=== PATIENT | female | born 1965 | race Caucasian/White ===

== ENCOUNTER 2016-10-15 08:44 | Day surgery (SDC) | payer MEDICAID, MEDICARE ==
[2016-10-14 11:20] VITALS: BMI 31.7
[~2016-10-15 08:44] MED LIST: LACTATED RINGERS 1,000 ML IV SCH
[2016-10-15 09:22] VITALS: TEMP 97.3
[2016-10-15] MEDS ORDERED: MIDAZOLAM 2 MG/2 ML VIAL ONE (09:53)
[2016-10-15] MEDS ORDERED: fentaNYL (PF) 50 MCG/ML 2 ML AMP ONE (09:53)
[2016-10-15] MEDS ORDERED: BUPIVACAINE (PF) 0.5% 30 ML VIAL ONE (09:53)
[2016-10-15] MEDS ORDERED: TRIAMCINOLONE ACETONIDE 40 MG/ML 1 ML VIAL ONE (09:53)
--- NOTE | 2016-10-15 10:12 | P.PCN ---
Date of Procedure: 10/15/16 Procedure(s) Performed: Preoperative diagnoses= 1-bilateral sacroiliitis. 2-bilateral sacroiliac joint dysfunction. 3- Failed back surgeries and lumbar area 4- lumbar spondylosis with lumbar facet arthropathy Post operative diagnoses= same as preoperative diagnosis. Procedure= bilateral sacroiliac joint steroid injection under fluoroscopic guidance. Anesthesia= conscious sedation with Versed 2 mg and fentanyl 100 micrograms and local infiltration with lidocaine 1% 4 ml Estimated blood loss=minimal. Procedure indication= the patient had a history of severe chronic low back pain , diagnosed with sacroiliitis and lumbar sacral facet arthropathy unresponsive to conservative treatment. Procedure description= the patient was seen and identified in the preoperative holding area, risks and benefits and alternative of the procedure and possible complications discussed with the patient, and he agreed with the preceding, patient signed the consent, an IV was started, and vital signs were monitored and were stable throughout the procedure, patient was placed in the prone position or table and the lumbosacral area was prepped and draped with a sterile fashion, vital signs were closely monitored during the procedure, the fluoroscopy camera was placed in the contralateral oblique view on the right sacroiliac joint and the lower part of the joint was identified, local infiltration of the skin and subcutaneous tissue with lidocaine 1% 2 mL then a 22-gauge Quincke-type spinal needle advanced slowly under fluoroscopy and placed in the posterior and inferior border of the right sacroiliac joint, placement confirmed with AP and lateral view, and after appropriate needle placement confirmed and after negative aspiration for heme and CSF and there was no paresthesia during the injection, 3 ml of Marcaine 0.5% and 40 mg of Kenalog injected after negative aspiration, the needle removed, and the entire same procedure was repeated for the left sacroiliac joint Patient tolerated the procedure well without any complication, The patient returned to supine position after the back was cleaned and a Band- Aid applied, the patient transported to recovery room in stable condition and he was monitored for 30 minutes before he was discharged home and then patient was reexamined before going home and patient was discharged in stable condition and patient will follow up with the pain clinic in a few weeks
[2016-10-15 10:25] VITALS: RESP 16
[2016-10-15] MEDS ORDERED: IV FLUID CONTINUATION 1,000 ML IV ONE (10:25)
[2016-10-15 10:56] VITALS: BP 108/73; PULSE 81
--- NOTE | 2016-10-15 12:57 | FL ---
EXAMINATION TYPE: FL guided pain mgmt statistic DATE OF EXAM: 10/15/2016 10:18 AM FLUOROSCOPY Fluoroscopy time of 8 seconds was used during bilateral SI joint injections. 2 image/s document/s th e procedure.
== END 2016-10-15 11:24 | disposition home or self-care (01) ==
LOC: ORPAIN 08:44
PROVIDERS: ATTEND Specialist
DX: G89.29 Other chronic pain (principal); M54.5 Low back pain; M46.1 Sacroiliitis, not elsewhere classified; M53.3 Sacrococcygeal disorders, not elsewhere classified; M96.1 Postlaminectomy syndrome, not elsewhere classified; M47.9 Spondylosis, unspecified; M46.96 Unspecified inflammatory spondylopathy, lumbar region

== ENCOUNTER 2016-11-26 06:30 | Day surgery (SDC) | payer MEDICAID, MEDICARE ==
[2016-11-24 16:40] VITALS: BMI 31.7
[2016-11-26 06:53] VITALS: TEMP 97.4
[2016-11-26] MEDS ORDERED: TRIAMCINOLONE ACETONIDE 40 MG/ML 1 ML VIAL ONE (07:19)
[2016-11-26] MEDS ORDERED: BUPIVACAINE (PF) 0.5% 30 ML VIAL ONE (07:19)
[2016-11-26] MEDS ORDERED: fentaNYL (PF) 50 MCG/ML 2 ML AMP ONE (07:19)
[2016-11-26] MEDS ORDERED: MIDAZOLAM 2 MG/2 ML VIAL ONE (07:19)
--- NOTE | 2016-11-26 07:48 | FL ---
EXAMINATION TYPE: FL guided pain mgmt statistic DATE OF EXAM: 11/26/2016 7:45 AM CLINICAL HISTORY: Low back and sacroiliac joint pain. TECHNIQUE: Fluoroscopy. COMPARISON: None. FINDINGS: Fluoroscopic guidance was provided during pain relief procedure performed by Dr. Casillas . A total of 25 seconds of fluoroscopic time was utilized during the procedure and two spot images a re acquired. Images acquired shows needle localization at bilateral sacroiliac joints. IMPRESSION: As Above.
[2016-11-26 07:54] VITALS: RESP 18
[2016-11-26] MEDS ORDERED: IV FLUID CONTINUATION 750 ML IV ONE (07:56)
[2016-11-26 08:06] VITALS: BP 100/60; PULSE 83
--- NOTE | 2016-11-26 08:23 | P.PCN ---
Date of Procedure: 11/26/16 Procedure(s) Performed: Preoperative diagnoses= 1-bilateral sacroiliitis. 2-bilateral sacroiliac joint dysfunction. 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 4-lumbar spondylosis with lumbar facet arthropathy without myelopathy Postoperative diagnoses= same as preoperative diagnosis. Procedure= bilateral sacroiliac joint steroid injection under fluoroscopic guidance. Anesthesia= conscious sedation with Versed 2 mg and fentanyl 100 micrograms and local infiltration with lidocaine 1% 4 ml Estimated blood loss=minimal. Procedure indication= the patient had a history of severe chronic low back pain , diagnosed with sacroiliitis and lumbar sacral facet arthropathy unresponsive to conservative treatment. Procedure description= the patient was seen and identified in the preoperative holding area, risks and benefits and alternative of the procedure and possible complications discussed with the patient, and he agreed with the preceding, patient signed the consent, an IV was started, and vital signs were monitored and were stable throughout the procedure, patient was placed in the prone position or table and the lumbosacral area was prepped and draped with a sterile fashion, vital signs were closely monitored during the procedure, the fluoroscopy camera was placed in the contralateral oblique view on the right sacroiliac joint and the lower part of the joint was identified, local infiltration of the skin and subcutaneous tissue with lidocaine 1% 2 mL then a 22-gauge Quincke-type spinal needle advanced slowly under fluoroscopy and placed in the posterior and inferior border of the right sacroiliac joint, placement confirmed with AP and lateral view, and after appropriate needle placement confirmed and after negative aspiration for heme and CSF and there was no paresthesia during the injection, 3 ml of Marcaine 0.5% and 40 mg of Kenalog injected after negative aspiration, the needle removed, and the entire same procedure was repeated for the left sacroiliac joint Patient tolerated the procedure well without any complication, The patient returned to supine position after the back was cleaned and a Band- Aid applied, the patient transported to recovery room in stable condition and he was monitored for 30 minutes before he was discharged home and then patient was reexamined before going home and patient was discharged in stable condition and patient will follow up with the pain clinic in a few weeks
== END 2016-11-26 08:26 | disposition home or self-care (01) ==
LOC: ORPAIN 06:30
PROVIDERS: ATTEND Specialist
DX: G89.29 Other chronic pain (principal); M46.1 Sacroiliitis, not elsewhere classified; M53.88 Other specified dorsopathies, sacral and sacrococcygeal region; Z88.5 Allergy status to narcotic agent; M47.816 Spondylosis without myelopathy or radiculopathy, lumbar region; M46.96 Unspecified inflammatory spondylopathy, lumbar region
CPT/HCPCS: 99152; 27096; J2250; J3301; J3010

== ENCOUNTER → 2016-12-16 | Outpatient (CLI) | payer MEDICAID, MEDICARE ==
[2016-12-16 15:05] VITALS: BP 110/58; PULSE 105; RESP 18; TEMP 98.1
--- NOTE | 2016-12-16 15:27 | P.PN ---
Progress Note - Text Patient returns for followup for chronic back and hip pain. Patient recently underwent bilateral SIJ injection x 2, which provided some relief for 2-3 weeks ' interval apiece. Patient continues on Dilaudid medications for pain from PCP with good relief. Patient denies adverse drug effects from medications. Today , pt denies new-onset weakness, bowel/bladder incontinence, or any other signs or symptoms of cauda equina syndrome. There are no signs of acute intoxication, and no indications of medication diversion or overuse. In addition to above, 13-point review of systems is also negative for chest pain , shortness of breath, changes in vision, changes in hearing, new onset weakness , abdominal pain, diarrhea, extreme fatigue, malaise, fever, skin changes, homicidal or suicidal ideation, or bowel or bladder incontinence. Vital Signs: Reviewed in EMR Gen: WDWN, AAOx3, NAD HEENT: NCAT, EOMI, hearing grossly normal Pulm: resp unlabored Abd: soft, NT, ND Neck: supple, trachea midline ROM in flexion lumbar spine: reduced ROM in extension lumbar spine: reduced Lumbar paravertebral tenderness: + Facet loading: + R > L SI joint tenderness: ++ R > L Paul's test: ++ R > L Straight leg raise: neg bilateral Neuro: CN II-XII grossly intact, muscle strength lower extremities PRESERVED Imaging: Reviewed in EMR Assessment: 1. sacroiliitis 2. lumbar spondylosis with myelopathy 3. chronic pain syndrome Plan: 1. Explanation: Opioid and psychological risk scores were reviewed. Diagnoses , prognoses, and multiple treatment options including but not limited to physical therapy, interventional therapies, adjuvant medical therapies, narcotic medication therapies, and surgery were discussed with the patient and all questions were answered to the patient's satisfaction. 2. Opioid agreement: no opioids prescribed today 3. Counseling: The patient was counseled extensively on BODY MASS INDEX, EXERCISE. Specifically, the patient was instructed regarding the importance of smoking cessation, obesity, and exercise in the context of both chronic pain and overall health. 4. Procedures: R SI RFA, then left SI RFA 5. Consultations: None 6. Investigations: None 7. Medications: none prescribed 8. Disposition: f/u for procedure as scheduled PQRS measures: 1-Patient's medications are documented in the chart. 2-Tobacco use is negative 3-Patient has not had a pneumococcal vaccine. 4-Advanced care planning discussed, patient unable to give. 5-Opioid contract NOT signed with the patient. 6-Pain positive, follow-up visit or procedure scheduled 7-Patient's blood pressure measured and documented, and WNL. 8-Patient's weight was measured, and body mass index ABOVE the normal limits, and counseling was done. Patient instructed to follow up with PCP. 9-Patient WAS NOT identified as an unhealthy alcohol user.
== END | disposition home or self-care (01) ==
LOC: PNWHC3 14:05
PROVIDERS: ATTEND Anesthesiology
DX: M47.16 Other spondylosis with myelopathy, lumbar region (principal); M46.1 Sacroiliitis, not elsewhere classified; G89.4 Chronic pain syndrome
CPT/HCPCS: 99211

== ENCOUNTER 2016-12-24 08:19 | Day surgery (SDC) | payer MEDICAID, MEDICARE ==
[2016-12-22 16:03] VITALS: BMI 34.2
[2016-12-24 08:47] VITALS: TEMP 98.2
[2016-12-24] MEDS ORDERED: LIDOCAINE 1% 20 ML VIAL (10MG/ML) FOR IV START INTRADERMA ONE (09:00)
[2016-12-24] MEDS ORDERED: TRIAMCINOLONE ACETONIDE 40 MG/ML 1 ML VIAL ONE (09:19)
[2016-12-24] MEDS ORDERED: fentaNYL (PF) 50 MCG/ML 2 ML AMP ONE (09:19)
[2016-12-24] MEDS ORDERED: BUPIVACAINE (PF) 0.5% 30 ML VIAL ONE (09:19)
[2016-12-24] MEDS ORDERED: MIDAZOLAM 2 MG/2 ML VIAL ONE (09:19)
[2016-12-24] MEDS ORDERED: IV FLUID CONTINUATION 1,000 ML IV ONE (10:45)
--- NOTE | 2016-12-24 10:46 | FL ---
EXAMINATION TYPE: FL guided pain mgmt statistic DATE OF EXAM: 12/24/2016 10:36 AM HISTORY: Pain RF RT sacral foramina, 1min 38sec fl time
[2016-12-24 10:50] VITALS: RESP 16
[2016-12-24 10:59] VITALS: BP 132/61; PULSE 71
--- NOTE | 2016-12-24 13:21 | P.PCN ---
Date of Procedure: 12/24/16 Procedure(s) Performed: PREOPERATIVE DIAGNOSIS: 1-Lumbosacral spondylosis with facet arthropathy without myelopathy. 2- Bilateral sacroiliit. post operative Diagnosis: . 1-Lumbosacral spondylosis with facet arthropathy without myelopathy. 2-Bilateral sacroiliit. PROCEDURES: 1- Right radiofrequency thermocoagulation/ablation of the L5 dorsal ramus. 2- Right multi-site radiofrequency thermocoagulation/ablation of the S1, S2, ateral branchs. The procedure was performed using fluoroscopic guidance during needle placement to assure proper position and maximize safety . ANESTHESIA: LOCAL ANESTHESIA and IV sedation with versed 2 mg and Fentanyle 100 mcg EBL: NONE INDICATION/MEDICAL NECESSITY: History of low back pain secondary to sacroiliitis and lumbosacral arthropathy unresponsive to more conservative treatments. The patient reported more than 50 % relief of pain symptoms following 2 previous diagnostic blocks with Bupivacaine. PROCEDURE DESCRIPTION: The patient was seen and identified in the preoperative area. Risks, benefits, complications, and alternatives were discussed with the patient. The patient agreed to proceed with the procedure and signed the consent. Vital signs were checked before and after the procedure and they remained stable. Patient ambulated to the procedure room and time out was completed. The patient was placed in the prone position on the procedure table and a pillow was placed under the abdomen to reduce lumbar lordosis. The lumbosacral area was prepped and draped in the usual sterile fashion. Critical pause was taken. L5 Dorsal Ramus RF: Using right oblique fluoroscopy, the junction of the transverse process and the superior articular process of the right S1 vertebra, which correspond to the fluoroscopic image of the "eye of the Gordon dog" was identified. Subsequently, a 10-cm 20 -gauge radiofrequency cannula with a 10-mm active tip was advanced under fluoroscopic guidance until contact was made with periosteum. At this level, the Sensory testing of the L5 dorsal ramus was performed at 50 Hz and 0 to 1 volt with production of concordant pain starting at 0.5 volt. Motor stimulation was done at 2.5 Hz with stimulation of mulitifidus muscle contration . No radicular symptoms or paresthesias were produced during the testing. Subsequently, the L5 dorsal ramus was subjected to a radiofrequency ablation at 80 degree celsius for 90 seconds . after 0.5% Bupivacaine 1 ml injected at each level after negative aspirations . The needle was withdrawn intact . S1,and S2, Lateral Branch RF: The lateral margins of the Right S1, S2, foramina were identified using AP fluoroscopy. Under fluoroscopic guidance, three 10-cm 20 -gauge radiofrequency cannula with a 10-mm active tip were inserted at 8-10 mm peripheral to the posterior S1 foramen, at various locations using clock-face coordinates. The center of the clock was registered at the lateral margin of the foramen. The 2: 30, 4:00, and 5:30 oclock positions were used. At this level, the sensory testing of the S1 lateral branch was performed at 50 Hz and 0 to 1 volt at the three levels with production of concordant pain starting at 0.5 volt. Motor stimulation was done at 2.5 Hz. No radicular symptoms or paresthesias were produced during the testing. Subsequently, the S1 lateral branch was subjected to a radiofrequency ablation at a mode of 90 seconds at 80 degrees Celsius at the 3 levels after negative motor and sensory testing and after injecting 0.5 ml of preservative free Bupivacaine 0.5 %. The same procedure was performed at the level of the S2 foramen. The plan was to do the radiofrequency of the lateral branches of S3 levels, but I couldn't identify the S3 foramina, for this reason I did only the lateral branches of S1 and S2, (in addition to the right side Dorsal Ramus of L5 ) The needle was withdrawn intact after each injection. COMPLICATIONS: The patient tolerated the procedure well without any acute complications. DISPOSTION/PLAN: The patient ambulated to the recovery area after the procedure in a stable condition for observation. Patient was reexamined prior to discharge. Patient was observed for 30 minutes in the recovery area and was discharged home, accompanied by an adult, after meeting discharged criteria. Discharge instructions were give to the patient by the staff. Patient was specifically instructed not to drive today and to rest for the rest of the day. The patient will schedule a follow up visit in the clinic in weeks or earlier if needed.
== END 2016-12-24 11:04 | disposition home or self-care (01) ==
LOC: ORPAIN 08:19
PROVIDERS: ATTEND Specialist
DX: M46.1 Sacroiliitis, not elsewhere classified (principal); M46.97 Unspecified inflammatory spondylopathy, lumbosacral region; M47.817 Spondylosis without myelopathy or radiculopathy, lumbosacral region; Z88.5 Allergy status to narcotic agent; Z78.0 Asymptomatic menopausal state; Z90.710 Acquired absence of both cervix and uterus
CPT/HCPCS: 99152; 99153 ×3; 64640; 64635; J2250; J3301; J3010

== ENCOUNTER 2017-01-20 08:34 | Day surgery (SDC) | payer MEDICAID, MEDICARE ==
[2017-01-18 13:19] VITALS: BMI 32.4
[2017-01-20 10:11] VITALS: RESP 16; TEMP 98.1
[2017-01-20] MEDS ORDERED: TRIAMCINOLONE ACETONIDE 40 MG/ML 1 ML VIAL ONE (11:10)
[2017-01-20] MEDS ORDERED: fentaNYL (PF) 50 MCG/ML 2 ML AMP ONE (11:10)
[2017-01-20] MEDS ORDERED: IOHEXOL 180 MG/ML 1 ML ML ONE (11:10)
[2017-01-20] MEDS ORDERED: MIDAZOLAM 2 MG/2 ML VIAL ONE (11:10)
--- NOTE | 2017-01-20 11:45 | P.PCN ---
Date of Procedure: 01/20/17 Procedure(s) Performed: PREOP DIAGNOSIS: 1- Lumbar postlaminectomy syndrome 2-lumbar spondylolysis 3-sacroiliitis POSTOP DIAGNOSIS: Same as preoperative diagnosis PROCEDURE: Caudal epidural steroid injection with epidurolysis and epidurogram under fluoroscopic guidance ANESTHESIA: Local with 1% lidocaine 3 ml ; IV sedation with Versed 6 mg and fentanyl 200 g EBL: Minimal. PROCEDURE INDICATION: The patient with post-laminectomy syndrome with low back pain and , and patient was scheduled to have radiofrequency ablation of the dorsal ramus of L5-S1 and lateral branches of the left side S1/S2/S3, I have done the radiofrequency ablation of the dorsal ramus of Right L5-S1 on the radiofrequency of the lateral branches Right S1/S2/S3, was done a few weeks ago patient reported that currently she is having severe low back pain with radiation to the lower extremity mainly the right side, had no motor or sensory deficit, she had no fever or night sweats, for this reason I will change the procedure to caudal epidural steroid injection with lysis of adhesions, as patient currently having symptoms of lumbar radiculopathy secondary to postlaminectomy pain syndrome PROCEDURE DESCRIPTION: The patient was seen and identified in the preoperative area. Risks, benefits, complications, and alternatives were discussed with the patient. The patient agreed to proceed with the procedure and signed the consent. IV was started, and vital signs were stable. Patient was taken to the OR and time out was completed. The patient was placed in the prone position on procedure table and a pillow was placed under the abdomen to reduce lumbar lordosis. The lumbosacral area was prepped and draped in the usual sterile fashion. Vital signs were closely monitored during the procedure. lateral view and the anterior-posterior plates of the sacrum were identified with infiltration of the area overlying the sacral hiatus with 1% lidocaine .A 17 gauge RK epidural needle was used to advance through the sacral hiatus into the caudal epidural space. Omnipaque 180 dye. 2cc was injected and the position of the needle was verified to be in the midline. A Racz catheter was introduced into the epidural space and was advanced towards the L5-S1 interspace under direct fluoroscopic guidance. Multiple passes were made with the catheter for lysis of epidural adhesions. Kenalog 80 mg with 3ml of preservative free Lidocaine 1% and 5 ml of preservative free normal saline was injected slowly. Additional spread was seen to L4 under fluoroscopy. The needle and the catheter were withdrawn intact. EPIDUROGRAM: Omnipaque 180 mg dye 2 ml was injected with spread of the dye into the caudal epidural space and with spread cutoff at L5 prior to epidurolysis. Post epidurolysis dye 2 ml was injected and spread was seen to L5.There was further spread of the solution together with the dye above the L5 COMPLICATIONS: None. DISPOSITION / PLANS: The patient was placed in a supine position and transferred to the recovery area in a stable condition for observation and was discharged from the recovery room after meeting discharge criteria. Home discharge instructions given to the patient by the staff. The patient was reexamined prior to discharge. The patient will schedule a follow up in the clinic in 2-4 weeks.
[2017-01-20] MEDS ORDERED: IV FLUID CONTINUATION 1,000 ML IV ONE (11:50)
--- NOTE | 2017-01-20 12:05 | FL ---
EXAMINATION TYPE: FL guided pain mgmt statistic DATE OF EXAM: 01/20/2017 11:47 AM HISTORY: Flouroscopy time 6 seconds of fluoroscopy provided. IMPRESSION: 1. Fluoroscopy time.
[2017-01-20 12:25] VITALS: BP 122/76; PULSE 86
== END 2017-01-20 12:47 | disposition home or self-care (01) ==
LOC: ORPAIN 08:34
PROVIDERS: ATTEND Specialist
DX: M96.1 Postlaminectomy syndrome, not elsewhere classified (principal); M47.26 Other spondylosis with radiculopathy, lumbar region; M46.1 Sacroiliitis, not elsewhere classified
CPT/HCPCS: 62264; 99152; J2250; J3301; Q9965; J3010

== ENCOUNTER → 2017-01-20 | Outpatient (CLI) | payer MEDICAID, MEDICARE ==
[2017-01-20 09:30] LABS: ALT 33 U/L (9-52); AST 28 U/L (14-36); Alkaline Phosphatase 56 U/L (38-126); Anion Gap 7 mmol/L; Blood Urea Nitrogen 13 mg/dL (7-17); Calcium 9.6 mg/dL (8.4-10.2); Carbon Dioxide 30 mmol/L (22-30); Chloride 103 mmol/L (98-107); Cholesterol 192 mg/dL (<200); Glucose 94 mg/dL (74-99); HDL Cholesterol 62 mg/dL (40-60); Non-African American GFR(MDRD) >60 (>60 ml/min/1.73 sqM); Potassium 4.7 mmol/L (3.5-5.1); Sodium 140 mmol/L (137-145); Total Bilirubin 0.4 mg/dL (0.2-1.3); Total Protein 7.3 g/dL (6.3-8.2); Triglycerides 81 mg/dL (<150)
== END | disposition home or self-care (01) ==
LOC: LABWHC1 08:24
PROVIDERS: ATTEND Family Medicine
DX: E78.5 Hyperlipidemia, unspecified (principal); I10 Essential (primary) hypertension
CPT/HCPCS: 36415; 80053; 80061

== ENCOUNTER 2017-02-02 06:02 | Inpatient (IN) | payer MEDICAID, MEDICARE ==
[2017-02-02] MEDS ORDERED: SODIUM CHLORIDE 0.9% 500 ML IV STA (06:15)
[2017-02-02] MEDS ORDERED: HYDROmorphone 1 MG/ML 1 ML SYRINGE IVP STA ×2 (06:15→08:26)
[2017-02-02] MEDS ORDERED: ONDANSETRON 4 MG/2 ML VIAL IVP STA (06:17)
--- NOTE | 2017-02-02 06:18 | ED ---
General Adult HPI - General Source: patient, RN notes reviewed Mode of arrival: wheelchair Limitations: no limitations <Eugene Ruiz - Last Filed: 02/02/17 06:45> <Earl Land - Last Filed: 02/02/17 08:58> - General Chief complaint: Abdominal Pain Stated complaint: abd pain, Time Seen by Provider: 02/02/17 06:10 - History of Present Illness Initial comments: This is a 51-year-old female who presents to the emergency department with a history of chronic back pain for which she is on chronic opioids 4. Patient states yesterday about 1:00 in the afternoon she started having epigastric and right upper quadrant abdominal pain. Patient states the abdominal pain has gotten worse. Patient denies any nausea vomiting patient denies any diarrhea. Patient denies any recent fever chills per patient denies any chest pain difficulty breathing or shortness of breath or palpitations. Patient states she has no back pain and the pain does not radiate anywhere. Patient denies any abdominal surgeries previously. Patient denies any dysuria hematuria urinary frequency. (Eugene Ruiz) - Related Data Home Medications Medication Instructions Recorded Confirmed Estradiol [Estrace] 1 mg PO DAILY 01/09/14 02/02/17 Fenofibrate [Tricor] 160 mg PO DAILY 01/09/14 02/02/17 Gabapentin [Neurontin] 800 mg PO TID 01/09/14 02/02/17 LORazepam [Ativan] 1 mg PO BID PRN 01/09/14 02/02/17 Levothyroxine Sodium [Synthroid] 50 mcg PO DAILY 01/09/14 02/02/17 Omeprazole [PriLOSEC] 20 mg PO AC-BID 01/09/14 02/02/17 lamoTRIgine [LaMICtal] 100 mg PO BID 01/09/14 02/02/17 Pilocarpine [Salagen] 5 mg PO TID 06/20/15 02/02/17 Tolterodine ER [Detrol LA] 4 mg PO DAILY 06/20/15 02/02/17 Zolpidem [Ambien] 10 mg PO HS PRN 06/20/15 02/02/17 Docusate [Colace] 100 mg PO DAILY PRN 07/26/15 02/02/17 Zzzquil 50 mg PO HS PRN 07/26/15 02/02/17 HYDROmorphone HCL [Dilaudid] 4 mg PO QID 10/14/16 02/02/17 Cyclobenzaprine [Flexeril] 10 mg PO TID PRN 02/02/17 02/02/17 Dextroamphetamine/Amphetamine 15 mg PO DAILY 02/02/17 02/02/17 [Adderall Xr 15 mg Capsule] Meloxicam [Mobic] 15 mg PO DAILY 02/02/17 02/02/17 Oxymorphone HCl [Oxymorphone HCl 30 mg PO DAILY 02/02/17 02/02/17 ER] Venlafaxine HCl [Effexor XR] 150 mg PO DAILY 02/02/17 02/02/17 valACYclovir [Valtrex] 500 mg PO DAILY 02/02/17 02/02/17 Allergies Allergy/AdvReac Type Severity Reaction Status Date / Time oxycodone AdvReac Nausea & Verified 02/02/17 08:19 Vomiting Review of Systems ROS Other: All systems not noted in ROS Statement are negative. <Eugene Ruiz - Last Filed: 02/02/17 06:45> ROS Other: All systems not noted in ROS Statement are negative. <Earl Land - Last Filed: 02/02/17 08:58> ROS Statement: Those systems with pertinent positive or pertinent negative responses have been documented in the HPI. Past Medical History Past Medical History: GERD/Reflux, Hyperlipidemia, Musculoskeletal Disorder, Thyroid Disorder Additional Past Medical History / Comment(s): HX OF SKIN CA, POST LAMINECTOMY SYNDROME. History of Any Multi-Drug Resistant Organisms: None Reported Past Surgical History: Back Surgery, Section, Hysterectomy Additional Past Surgical History / Comment(s): brain surgery, trial spinal cord stim done, LEFT ROTATOR CUFF, OPEN SPINAL CORD STIMULATOR TRIAL PLACEMENT, DECOMPRESSION THORACIC LAMINECTOMY T8-T9, PAIN CLINIC PROCEDURE. 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 PT STATED HAS LOSS OF INTEREST IN THINGS,FEELS DEPRESSED DAILY, TROUBLE GETTING TO SLEEP THEN SLEEPING TOO MUCH, FEELS BAD ABOUT SELF (FAILURE CAN'T DO ANYTHING)FEELS HOPLESS. WHEN ASKED IF SUICIDAL PT, PT BECAME TEARFULL. REFUSED TO ANSWER FURTHUR QUESTIONS OTHER THAN TO SAY " I WON'T HARM MYSELF WHILE HERE" AND I'M NOT GOING TO BE OBSERVED FOR 72 HOURS ON PSYCH FLOOR. IF YOU SEND ANYONE IN HERE I WILL TELL THEM I WAS JUST BEING SARCASTIC. Smoking Status: Former smoker Past Alcohol Use History: Rare Additional Past Alcohol Use History / Comment(s): Quit smoking 2011. Past Drug Use History: None Reported - Past Family History Father Family Medical History: Unable to Obtain Mother Family Medical History: No Reported History <Eugene Ruiz - Last Filed: 02/02/17 06:45> General Exam Limitations: no limitations <Eugene Ruiz - Last Filed: 02/02/17 06:45> <Earl Land - Last Filed: 02/02/17 08:58> - General Exam Comments Initial Comments: GENERAL: Patient is well-developed and well-nourished. Patient is nontoxic and well- hydrated and is in moderate distress. ENT: Neck is soft and supple. No significant lymphadenopathy is noted. Oropharynx is clear. Moist mucous membranes. Neck has full range of motion without eliciting any pain. EYES: The sclera were anicteric and conjunctiva were pink and moist. Extraocular movements were intact and pupils were equal round and reactive to light. Eyelids were unremarkable. PULMONARY: Unlabored respirations. Good breath sounds bilaterally. No audible rales rhonchi or wheezing was noted. CARDIOVASCULAR: There is a regular rate and rhythm without any murmurs gallops or rubs. ABDOMEN: Patient has right upper quadrant and epigastric abdominal pain. No palpable organomegaly was noted. There is no palpable pulsatile mass. SKIN: Skin is clear with no lesions or rashes and otherwise unremarkable. NEUROLOGIC: Patient is alert and oriented x3. Cranial nerves II through XII are grossly intact. Motor and sensory are also intact. Normal speech, volume and content. Symmetrical smile. MUSCULOSKELETAL: Normal extremities with adequate strength and full range of motion. No lower extremity swelling or edema. No calf tenderness. LYMPHATICS: No significant lymphadenopathy is noted PSYCHIATRIC: Normal psychiatric evaluation. Normal interpersonal interactions appears functionally intact in deals appropriately with others. No signs of depression. No signs of anxiety. (Eugene Ruiz) Course <Eugene Ruiz - Last Filed: 02/02/17 06:45> <Earl Land - Last Filed: 02/02/17 08:58> Vital Signs 02/02/17 02/02/17 02/02/17 06:06 06:47 08:23 Temperature 98.1 F 97.0 F L Pulse Rate 79 78 81 Respiratory 16 20 16 Rate Blood Pressure 131/60 135/70 147/65 O2 Sat by Pulse 99 99 96 Oximetry - Reevaluation(s) Reevaluation #1: 02/02/17 08:57 I did discuss findings with the patient and her . Patient does have pancreatitis she does have evidence of gallstones cholecystitis is considered is also dilation of the common bile duct. I did discuss case with her and with Dr. Yepez patient will be admitted she had a consultation. (Earl Land) Medical Decision Making <Eugene Ruiz - Last Filed: 02/02/17 06:45> - Lab Data Result diagrams: 02/02/17 06:15 02/02/17 06:15 <Earl Land - Last Filed: 02/02/17 08:58> - Medical Decision Making EKG is of poor quality but it shows a sinus rhythm at 90 bpm SC interval is 164 QRS is 76 QT interval [address] Land be taking over the care of this patient at 7 AM (Eugene Ruiz) - Lab Data Lab Results 02/02/17 02/02/17 02/02/17 Range/Units 06:15 06:15 06:15 WBC 8.6 (3.8-10.6) k/uL RBC 4.73 (3.80-5.40) m/uL Hgb 14.1 (11.4-16.0) gm/dL Hct 42.3 (34.0-46.0) % MCV 89.3 (80.0-100.0) fL MCH 29.9 (25.0-35.0) pg MCHC 33.4 (31.0-37.0) g/dL RDW 12.8 (11.5-15.5) % Plt Count 402 (150-450) k/uL Neutrophils % 72 % Lymphocytes % 20 % Monocytes % 6 % Eosinophils % 1 % Basophils % 0 % Neutrophils # 6.2 (1.3-7.7) k/uL Lymphocytes # 1.7 (1.0-4.8) k/uL Monocytes # 0.5 (0-1.0) k/uL Eosinophils # 0.1 (0-0.7) k/uL Basophils # 0.0 (0-0.2) k/uL Sodium 140 (137-145) mmol/L Potassium 4.2 (3.5-5.1) mmol/L Chloride 99 (98-107) mmol/L Carbon Dioxide 34 H (22-30) mmol/L Anion Gap 7 mmol/L BUN 21 H (7-17) mg/dL Creatinine 0.95 (0.52-1.04) mg/dL Est GFR (MDRD) Af Amer >60 (>60 ml/min/1.73 sqM) Est GFR (MDRD) Non-Af >60 (>60 ml/min/1.73 sqM) Glucose 80 (74-99) mg/dL Calcium 9.5 (8.4-10.2) mg/dL Total Bilirubin 2.6 H (0.2-1.3) mg/dL AST 369 H (14-36) U/L ALT 207 H (9-52) U/L Alkaline Phosphatase 64 (38-126) U/L Total Creatine Kinase 64 (30-135) U/L CK-MB (CK-2) 1.5 (0.0-2.4) ng/mL CK-MB (CK-2) Rel Index 2.3 Troponin I <0.012 (0.000-0.034) ng/mL Total Protein 7.6 (6.3-8.2) g/dL Albumin 4.4 (3.5-5.0) g/dL Amylase 1149 H* (30-110) U/L Lipase 24685 H (23-300) U/L Urine Color Urine Appearance (Clear) Urine pH (5.0-8.0) Ur Specific [place] (1.001-1.035) Urine Protein (Negative) Urine Glucose (UA) (Negative) Urine Ketones (Negative) Urine Blood (Negative) Urine Nitrite (Negative) Urine Bilirubin (Negative) Urine Urobilinogen (<2.0) mg/dL Ur Leukocyte Esterase (Negative) Urine WBC (0-5) /hpf Ur Squamous Epith Cells (0-4) /hpf Amorphous Sediment (None) /hpf Urine Mucus (None) /hpf 02/02/17 Range/Units 06:45 WBC (3.8-10.6) k/uL RBC (3.80-5.40) m/uL Hgb (11.4-16.0) gm/dL Hct (34.0-46.0) % MCV (80.0-100.0) fL MCH (25.0-35.0) pg MCHC (31.0-37.0) g/dL RDW (11.5-15.5) % Plt Count (150-450) k/uL Neutrophils % % Lymphocytes % % Monocytes % % Eosinophils % % Basophils % % Neutrophils # (1.3-7.7) k/uL Lymphocytes # (1.0-4.8) k/uL Monocytes # (0-1.0) k/uL Eosinophils # (0-0.7) k/uL Basophils # (0-0.2) k/uL Sodium (137-145) mmol/L Potassium (3.5-5.1) mmol/L Chloride (98-107) mmol/L Carbon Dioxide (22-30) mmol/L Anion Gap mmol/L BUN (7-17) mg/dL Creatinine (0.52-1.04) mg/dL Est GFR (MDRD) Af Amer (>60 ml/min/1.73 sqM) Est GFR (MDRD) Non-Af (>60 ml/min/1.73 sqM) Glucose (74-99) mg/dL Calcium (8.4-10.2) mg/dL Total Bilirubin (0.2-1.3) mg/dL AST (14-36) U/L ALT (9-52) U/L Alkaline Phosphatase (38-126) U/L Total Creatine Kinase (30-135) U/L CK-MB (CK-2) (0.0-2.4) ng/mL CK-MB (CK-2) Rel Index Troponin I (0.000-0.034) ng/mL Total Protein (6.3-8.2) g/dL Albumin (3.5-5.0) g/dL Amylase (30-110) U/L Lipase (23-300) U/L Urine Color Yellow Urine Appearance Cloudy H (Clear) Urine pH 8.5 H (5.0-8.0) Ur Specific [place] 1.013 (1.001-1.035) Urine Protein 1+ H (Negative) Urine Glucose (UA) Negative (Negative) Urine Ketones Negative (Negative) Urine Blood Negative (Negative) Urine Nitrite Negative (Negative) Urine Bilirubin Negative (Negative) Urine Urobilinogen 2.0 (<2.0) mg/dL Ur Leukocyte Esterase Negative (Negative) Urine WBC 4 (0-5) /hpf Ur Squamous Epith Cells 3 (0-4) /hpf Amorphous Sediment Moderate H (None) /hpf Urine Mucus Rare H (None) /hpf Disposition <Eugene Ruiz - Last Filed: 02/02/17 06:45> <Earl Land - Last Filed: 02/02/17 08:58> Clinical Impression: Acute pancreatitis, Cholelithiasis and cholecystitis with obstruction, Abdominal pain Disposition: ADMITTED IP TO THIS [facility] Condition: Stable Referrals: Donovan Yepez MD [Primary Care Provider] - 1-2 days
[2017-02-02 06:31] LABS: Basophils % (A) 0 %; CH 30.2; Eosinophils # (A) 0.1 k/uL (0-0.7); Eosinophils % (A) 1 %; HCT 42.3 % (34.0-46.0); HDW 2.36; HGB 14.1 gm/dL (11.4-16.0); Luc # (Auto) 0.09; Luc % (Auto) 1; Lymphocytes # (A) 1.7 k/uL (1.0-4.8); Lymphocytes % (A) 20 %; MCH 29.9 pg (25.0-35.0); MCHC 33.4 g/dL (31.0-37.0); MCV 89.3 fL (80.0-100.0); Mean Platelet Volume 6.8; Monocytes # (A) 0.5 k/uL (0-1.0); Monocytes % (A) 6 %; Neutrophils # (A) 6.2 k/uL (1.3-7.7); Neutrophils % (A) 72 %; RBC 4.73 m/uL (3.80-5.40); RDW 12.8 % (11.5-15.5); WBC 8.6 k/uL (3.8-10.6)
[2017-02-02 06:46] LABS: ALT 207 U/L (9-52); AST 369 U/L (14-36); Alkaline Phosphatase 64 U/L (38-126); Anion Gap 7 mmol/L; Blood Urea Nitrogen 21 mg/dL (7-17); Calcium 9.5 mg/dL (8.4-10.2); Carbon Dioxide 34 mmol/L (22-30); Chloride 99 mmol/L (98-107); Glucose 80 mg/dL (74-99); Non-African American GFR(MDRD) >60 (>60 ml/min/1.73 sqM); Potassium 4.2 mmol/L (3.5-5.1); Sodium 140 mmol/L (137-145); Total Bilirubin 2.6 mg/dL (0.2-1.3); Total Protein 7.6 g/dL (6.3-8.2)
[2017-02-02 06:53] LABS: Creatine Kinase 64 U/L (30-135)
[2017-02-02 07:01] LABS: Amylase 1149 U/L (30-110)
[2017-02-02 07:07] LABS: Creatine Kinase MB 1.5 ng/mL (0.0-2.4); Troponin I <0.012 ng/mL (0.000-0.034)
[2017-02-02 07:15] LABS: Amorphous Sediment,Urine Moderate /hpf; Appearance,Urine Cloudy (Clear); Bilirubin,Urine Negative (Negative); Glucose,Urine (UA) Negative (Negative); Ketones,Urine Negative (Negative); Leukocyte Esterase,Urine Negative (Negative); Mucus,Urine Rare /hpf; Nitrite,Urine Negative (Negative); PH, Urine 8.5 (5.0-8.0); Particle Count 9423; Protein,Urine 1+ (Negative); Specific Gravity,Urine 1.013 (1.001-1.035); Squamous Epithelial Cell,Urine 3 /hpf (0-4); UA Billing (MACRO vs. MICRO) MICRO; WBC,Urine 4 /hpf (0-5)
[2017-02-02] MEDS ORDERED: SODIUM CHLORIDE 0.9% 1,000 ML IV STA (08:17)
--- NOTE | 2017-02-02 08:29 | XR ---
Abdomen HISTORY: Epigastric pain Frontal view of the abdomen submitted on 2 images No comparisons Lung bases are clear. Postop changes are noted to be spine. There is no bowel obstruction or pneumope ritoneum. Retained fecal debris present throughout the distribution of the colon. Probable phlebolith s within the pelvis. There is a spinal curvature. IMPRESSION: Correlate for fecal stasis.
--- NOTE | 2017-02-02 08:38 | US ---
EXAMINATION TYPE: US gallbladder DATE OF EXAM: 02/02/2017 7:42 AM COMPARISON: NONE CLINICAL HISTORY: Pain RUQ x 2 days. EXAM MEASUREMENTS: Liver Length: 15.5 cm Gallbladder Wall: 0.3 cm CBD: 0.8 cm Right Kidney: 10.3 x 5.2 x 5.0 cm cm Pancreas: Obscured by bowel gas Liver: Partially obscured by overlying bowel gas, liver echotexture is coarse Gallbladder: Filled with multiple shadowing, mobile foci compatible with gallstones Evidence for sonographic Cha's sign: yes CBD: enlarged. Partially obscured by shadowing from gallstones. Right Kidney: wnl There is no ascites. IMPRESSION: Cholelithiasis. Correlate for cholecystitis. There may be hepatocellular disease or fatty infiltration of the liver. Dilated common bile duct. Difficult to exclude choledocholithiasis.
[2017-02-02] MEDS ORDERED: NALOXONE 0.4 MG/ML 1 ML VIAL IV PRN (08:58)
[2017-02-02] MEDS ORDERED: PIPERACILLIN-TAZOBACTAM 3.375 GM in DEXTROSE/WATER 1 50ML.BAG IVPB STA (09:01)
[2017-02-02 10:00] VITALS: BMI 32.4
[2017-02-02] MEDS ORDERED: CYCLOBENZAPRINE 10 MG TAB PO PRN (11:25)
[2017-02-02] MEDS ORDERED: diphenhydrAMINE 50 MG CAP PO PRN (11:25)
[2017-02-02] MEDS ORDERED: DOCUSATE 100 MG CAP PO PRN (11:25)
[2017-02-02] MEDS ORDERED: ZOLPIDEM 10 MG TAB PO PRN (11:25)
[2017-02-02] MEDS: HYDROmorphone 1 MG/ML 1 ML SYRINGE IV PRN ×3 (12:24→19:22)
[2017-02-02] MEDS ORDERED: IBUPROFEN 400 MG TAB PO PRN (14:49)
[2017-02-02 16:11] LABS: Hepatitis B Surface Ag Index 0.06
[2017-02-02 16:17] LABS: Hepatitis B Core IgM Index 0.03
[2017-02-02 16:28] LABS: Hepatitis C Virus IgG Ab Negative (Negative); Hepatitis C Virus IgG Index 0.03
[2017-02-02] MEDS: PILOCARPINE 5 MG TAB PO SCH ×2 (16:56→20:29)
[2017-02-02] MEDS: GABAPENTIN 400 MG CAP PO SCH ×2 (16:56→20:29)
[2017-02-02] MEDS: OXYMORPHONE HCL 5 MG TABLET PO SCH ×2 (17:00→20:28)
[2017-02-02] MEDS: PANTOPRAZOLE 40 MG/10 ML VIAL IV SCH ×2 (17:01→20:29)
[2017-02-02] MEDS ORDERED: NON-FORMULARY DRUG (Omeprazole [Prilosec] 20 MG) PO SCH (17:30)
--- NOTE | 2017-02-02 19:40 | P.CONS ---
History of Present Illness - Reason for Consult Consult date: 02/02/17 gallstone pancreatitis Requesting physician: Donovan Yepez - History of Present Illness 51-year-old female presents with acute nonradiating epigastric right upper quadrant pain 1 days with dark colored urine but without fever or chills. Denies N/V, weight loss, hematemesis, hematochezia or melena. Ultrasound abdomen reported cholelithiasis. CBD 0.8 cm. White count 8.6. Hemoglobin 14.1. Total bilirubin 2.6. AST 369. ALT 207. Alkaline phosphatase 64. Lipase 15,103. Amylase 1149. Troponin less than 0.012. No history of IVDA, pancreatitis or alcoholism. No changes in medications. No history of autoimmune disease. Review of Systems Constitutional: Denies fever, chills, sweats, weight gain, or loss. HEENT: Negative for migraines, blurred vision or loss, earaches, drainage, tinnitus, oral mucosal lesions, dysphagia, or odynophagia. CARDIAC: Hyperlipidemia. Negative for chest pain, arrhythmias, or palpitation. RESPIRATORY: Negative for shortness of breath, hemoptysis, cough, or sputum production. GI: See HPI for pertinent findings. : Negative for hematuria, urgency, frequency, polyuria, or dysuria. GYNc: Denies possibility of . Negative vaginal discharge. MUSCULOSKELETAL: History of post-laminectomy syndrome. Open spinal cord stimulator. Chronic back pain. Negative for muscle aches, swelling, arthritis , and arthralgias. 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 Negative for stroke or TIA. ENDOCRINE: History of hypothyroidism.. SKIN: History of skin carcinoma. Negative for rash or itching. PSYCHIATRIC: Bipolar depression. Anxiety. All systems: negative (See HPI) Past Medical History Past Medical History: GERD/Reflux, Hyperlipidemia, Musculoskeletal Disorder, Thyroid Disorder Additional Past Medical History / Comment(s): HX OF SKIN CA, POST LAMINECTOMY SYNDROME. 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 PT STATED HAS LOSS OF INTEREST IN THINGS,FEELS DEPRESSED DAILY, TROUBLE GETTING TO SLEEP THEN SLEEPING TOO MUCH, FEELS BAD ABOUT SELF (FAILURE CAN'T DO ANYTHING)FEELS HOPLESS. WHEN ASKED IF SUICIDAL PT, PT BECAME TEARFULL. REFUSED TO ANSWER FURTHUR QUESTIONS OTHER THAN TO SAY " I WON'T HARM MYSELF WHILE HERE" AND I'M NOT GOING TO BE OBSERVED FOR 72 HOURS ON PSYCH FLOOR. IF YOU SEND ANYONE IN HERE I WILL TELL THEM I WAS JUST BEING SARCASTIC. Smoking Status: Former smoker Past Alcohol Use History: Rare Additional Past Alcohol Use History / Comment(s): Quit smoking 2011. Past Drug Use History: None Reported - Past Family History Father Family Medical History: Unable to Obtain Mother Family Medical History: No Reported History Medications and Allergies Home Medications Medication Instructions Recorded Confirmed Type Estradiol [Estrace] 1 mg PO DAILY 01/09/14 02/02/17 History Fenofibrate [Tricor] 160 mg PO DAILY 01/09/14 02/02/17 History Gabapentin [Neurontin] 800 mg PO TID 01/09/14 02/02/17 History LORazepam [Ativan] 1 mg PO BID PRN 01/09/14 02/02/17 History Levothyroxine Sodium [Synthroid] 50 mcg PO DAILY 01/09/14 02/02/17 History Omeprazole [PriLOSEC] 20 mg PO AC-BID 01/09/14 02/02/17 History lamoTRIgine [LaMICtal] 100 mg PO BID 01/09/14 02/02/17 History Pilocarpine [Salagen] 5 mg PO TID 06/20/15 02/02/17 History Tolterodine ER [Detrol LA] 4 mg PO DAILY 06/20/15 02/02/17 History Zolpidem [Ambien] 10 mg PO HS PRN 06/20/15 02/02/17 History Docusate [Colace] 100 mg PO DAILY PRN 07/26/15 02/02/17 History Zzzquil 50 mg PO HS PRN 07/26/15 02/02/17 History HYDROmorphone HCL [Dilaudid] 4 mg PO QID 10/14/16 02/02/17 History Cyclobenzaprine [Flexeril] 10 mg PO TID PRN 02/02/17 02/02/17 History Dextroamphetamine/Amphetamine 15 mg PO DAILY 02/02/17 02/02/17 History [Adderall Xr 15 mg Capsule] Meloxicam [Mobic] 15 mg PO DAILY 02/02/17 02/02/17 History Oxymorphone HCl [Oxymorphone HCl 30 mg PO DAILY 02/02/17 02/02/17 History ER] Venlafaxine HCl [Effexor XR] 150 mg PO DAILY 02/02/17 02/02/17 History valACYclovir [Valtrex] 500 mg PO DAILY 02/02/17 02/02/17 History Allergies Allergy/AdvReac Type Severity Reaction Status Date / Time oxycodone AdvReac Nausea & Verified 02/02/17 08:19 Vomiting Physical Exam Vitals: Vital Signs Temp Pulse Resp BP Pulse Ox 02/02/17 09:40 97.0 F L 90 16 125/63 94 L 02/02/17 08:23 97.0 F L 81 16 147/65 96 02/02/17 06:47 78 20 135/70 99 02/02/17 06:06 98.1 F 79 16 131/60 99 Intake and Output 02/01/17 02/02/17 02/02/17 22:59 06:59 14:59 Other: Weight 85.729 kg 85.729 kg Patient Weight 02/03/17 06:59 Weight 85.729 kg General appearance: The patient is alert, oriented, in no acute distress. HET: Head is normocephalic and atraumatic. Pupils are equal and reactive. Oropharynx is clear without lesions. Neck: Supple without lymphadenopathy. Trachea midline. Heart: S1 S2. Regular rate and rhythm. Lungs: No crackles or wheezes are heard. Abdomen: Soft, midepigastri/RUQ tenderness, nondistended with bowel sounds. No peritoneal signs. No palpable organomegaly or masses. Extremities: Normal skin color and turgor. No cyanosis, rash, ulceration, clubbing, or edema. Radial and pedal pulses are 2/4 bilaterally. Neurological: No focal deficits. Strength and sensation are grossly intact. Results CBC & Chem 7: 02/02/17 06:15 02/02/17 06:15 Labs: Abnormal Lab Results - Last 24 Hours (Table) 02/02/17 02/02/17 Range/Units 06:15 06:45 Carbon Dioxide 34 H (22-30) mmol/L BUN 21 H (7-17) mg/dL Total Bilirubin 2.6 H (0.2-1.3) mg/dL AST 369 H (14-36) U/L ALT 207 H (9-52) U/L Amylase 1149 H* (30-110) U/L Lipase 82492 H (23-300) U/L Urine Appearance Cloudy H (Clear) Urine pH 8.5 H (5.0-8.0) Urine Protein 1+ H (Negative) Amorphous Sediment Moderate H (None) /hpf Urine Mucus Rare H (None) /hpf US - abdomen: report reviewed (reviewed by Dr. Chicas) Assessment and Plan (1) Acute gallstone pancreatitis Status: Acute (2) Elevated liver enzymes Narrative/Plan: Suspected choledocholithiasis possible evolving possible passage Status: Acute (3) Cholelithiasis Status: Acute Plan: 1. Supportive measures. NPO except ice chips, meds, and popsicles. 2. Repeat liver and pancreatic chemistries daily. 3. ERCP contingent on clinical course once pancreatitis improves. Will follow with you. Thank you for this kind referral and the opportunity to participate in the care of your patient. This consultation was discussed with Dr. Chicas. The impression and plan of care have been directed as dictated.
[2017-02-02] MEDS: lamoTRIgine 100 MG TAB PO SCH (20:29)
[2017-02-03] MEDS: OXYMORPHONE HCL 5 MG TABLET PO SCH ×7 (00:26→23:57)
[2017-02-03] MEDS: HYDROmorphone 1 MG/ML 1 ML SYRINGE IV PRN ×4 (03:45→21:02)
[2017-02-03] MEDS: LEVOTHYROXINE 50 MCG TAB PO SCH (05:51)
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
[2017-02-03] MEDS: OXYBUTYNIN XL 5 MG TAB.ER.24 PO SCH (08:47)
[2017-02-03] MEDS: PILOCARPINE 5 MG TAB PO SCH ×3 (08:47→19:56)
[2017-02-03] MEDS: lamoTRIgine 100 MG TAB PO SCH ×2 (08:47→19:56)
[2017-02-03] MEDS: valACYclovir 500 MG TAB PO SCH (08:47)
[2017-02-03] MEDS: FENOFIBRATE 160 MG TAB PO SCH (08:47)
[2017-02-03] MEDS: MELOXICAM 7.5 MG TAB PO SCH (08:47)
[2017-02-03] MEDS: VENLAFAXINE HCL ER 150 MG CAP PO SCH (08:47)
[2017-02-03] MEDS: GABAPENTIN 400 MG CAP PO SCH ×3 (08:47→19:56)
[2017-02-03] MEDS: PANTOPRAZOLE 40 MG/10 ML VIAL IV SCH (08:50)
[2017-02-03] MEDS ORDERED: ESTRADIOL 1 MG TAB PO SCH (09:00)
[2017-02-03] MEDS ORDERED: DEXTROAMPHETAMINE PO SCH (09:00)
[2017-02-03] MEDS ORDERED: AMPHETAMINE PO SCH (09:00)
[2017-02-03 09:03] LABS: Basophils % (A) 1 %; CH 30.1; CHCM 33.8; Eosinophils # (A) 0.1 k/uL (0-0.7); Eosinophils % (A) 1 %; HCT 36.7 % (34.0-46.0); HDW 2.45; HGB 12.5 gm/dL (11.4-16.0); Luc # (Auto) 0.09; Luc % (Auto) 2; Lymphocytes % (A) 18 %; MCH 30.4 pg (25.0-35.0); MCV 89.6 fL (80.0-100.0); Mean Platelet Volume 7.5; Monocytes # (A) 0.3 k/uL (0-1.0); Monocytes % (A) 5 %; Neutrophils # (A) 4.1 k/uL (1.3-7.7); Neutrophils % (A) 73 %; RBC 4.09 m/uL (3.80-5.40); RDW 12.6 % (11.5-15.5); WBC 5.6 k/uL (3.8-10.6); WBC (Perox) 5.52
[2017-02-03 09:09] LABS: INR 1.2 (<1.1); Prothrombin Time 11.7 sec (9.0-12.0)
[2017-02-03 09:23] LABS: ALT 193 U/L (9-52); AST 170 U/L (14-36); Alkaline Phosphatase 91 U/L (38-126); Anion Gap 6 mmol/L; Blood Urea Nitrogen 10 mg/dL (7-17); Calcium 8.4 mg/dL (8.4-10.2); Carbon Dioxide 23 mmol/L (22-30); Chloride 107 mmol/L (98-107); Glucose 62 mg/dL (74-99); Non-African American GFR(MDRD) >60 (>60 ml/min/1.73 sqM); Potassium 4.2 mmol/L (3.5-5.1); Sodium 136 mmol/L (137-145); Total Protein 6.5 g/dL (6.3-8.2)
[2017-02-03] MEDS: ESTRADIOL 0.5 MG TAB PO SCH (09:38)
[2017-02-03 09:48] LABS: Amylase 452 U/L (30-110)
--- NOTE | 2017-02-03 09:48 | P.PN ---
Subjective Principal diagnosis: Gallstone pancreatitis possible choledocholithiasis 51-year-old female admitted with acute epigastric abdominal pain with cholelithiasis and elevated pancreatic liver enzymes suspected choledocholithiasis evolving versus passage. This morning she feels better. Minimal abdominal discomfort. Morning chemistries are pending. Requesting diet advancement. Afebrile. Hepatitis panel negative. Objective - Vital Signs Vital signs: Vital Signs Temp 98.3 F 02/03/17 07:00 Pulse 87 02/03/17 07:00 Resp 16 02/03/17 07:00 BP 110/54 02/03/17 07:00 Pulse Ox 99 02/03/17 07:00 Intake & Output 02/02/17 02/03/17 02/03/17 18:59 06:59 18:59 Intake Total 1650 Balance 1650 Weight 85.729 kg Intake: Intake, IV Titration 1650 Amount Sodium Chloride 0.9% 1, 1650 000 ml @ 150 mls/hr IV . Q6H40M STA Rx#:[id number] Other: Voiding Method Toilet Toilet # Voids 2 2 - Exam General appearance: The patient is alert, oriented, in no acute distress. HET: Head is normocephalic and atraumatic. Pupils are equal and reactive. Oropharynx is clear without lesions. Neck: Supple without lymphadenopathy. Trachea midline. Heart: S1 S2. Regular rate and rhythm. Lungs: No crackles or wheezes are heard. Abdomen: Soft, nontender, nondistended with bowel sounds. No peritoneal signs. No palpable organomegaly or masses. Extremities: Normal skin color and turgor. No cyanosis, rash, ulceration, clubbing, or edema. Radial and pedal pulses are 2/4 bilaterally. Neurological: No focal deficits. Strength and sensation are grossly intact. - Labs CBC & Chem 7: 02/03/17 08:21 02/02/17 06:15 Assessment and Plan (1) Acute gallstone pancreatitis Status: Acute (2) Elevated liver enzymes Narrative/Plan: Suspected choledocholithiasis possible evolving possible passage Status: Acute (3) Cholelithiasis Status: Acute Plan: 1. Supportive measures. Will allow full liquid diet considering abdominal pain has improved significantly. 2. Repeat liver and pancreatic chemistries today results are pending. Plan of care discussed with Dr. Yepez. 3. ERCP contingent on clinical course. Will follow with you. Assessment and plan of care discussed with Dr. Chicas.
[2017-02-03] MEDS: LORazepam 1 MG TAB PO PRN (14:08)
[2017-02-03] MEDS: PANTOPRAZOLE 40 MG TABLET PO SCH (19:58)
[2017-02-04] MEDS: HYDROmorphone 1 MG/ML 1 ML SYRINGE IV PRN ×5 (03:54→22:57)
[2017-02-04] MEDS: OXYMORPHONE HCL 5 MG TABLET PO SCH ×7 (04:12→23:46)
[2017-02-04] MEDS: LEVOTHYROXINE 50 MCG TAB PO SCH (05:36)
--- NOTE | 2017-02-04 08:10 | P.PN ---
Subjective Principal diagnosis: Cholecystitis This is a continue process on a 51-year-old white female essentially admitted for parotitis and common bile duct cholecystitis. The patient is feeling much better. Enzymes are significantly normal. I suspect she did pass a stone. Question need for ERCP at this point. However, I suggested that she needs to defecate have surgical evaluation. She has requested Dr. Emilee Land. No other voiding difficulties. Objective - Vital Signs Vital signs: Vital Signs Temp 98 F 02/04/17 07:00 Pulse 70 02/04/17 07:00 Resp 16 02/04/17 07:00 BP 132/60 02/04/17 07:00 Pulse Ox 97 02/04/17 07:00 Intake & Output 02/03/17 02/04/17 02/04/17 18:59 06:59 18:59 Intake Total 720 1490 Balance 720 1490 Intake: Intake, IV Titration 900 Amount Sodium Chloride 0.9% 1, 900 000 ml @ 150 mls/hr IV . Q6H40M STA Rx#:[id number] Oral 720 590 Other: Voiding Method Toilet Toilet # Voids 3 2 - Constitutional General appearance: Present: obese - EENT Eyes: Absent: abnormal pupil - Respiratory Respiratory: bilateral: CTA - Cardiovascular Rhythm: regular Heart sounds: normal: S1, S2 - Gastrointestinal General gastrointestinal: Present: soft. Absent: tenderness - Neurologic Neurologic: Present: CNII-XII intact. Absent: focal deficits - Labs CBC & Chem 7: 02/03/17 08:21 02/03/17 08:21 Labs: Abnormal Lab Results - Last 24 Hours (Table) 02/03/17 Range/Units 08:21 Sodium 136 L (137-145) mmol/L Glucose 62 L (74-99) mg/dL Total Bilirubin 2.0 H (0.2-1.3) mg/dL AST 170 H (14-36) U/L ALT 193 H (9-52) U/L Amylase 452 H* (30-110) U/L Lipase 853 H (23-300) U/L Assessment and Plan (1) Opiate dependence, continuous Status: Acute (2) Acute gallstone pancreatitis Status: Acute (3) Cholelithiasis and cholecystitis with obstruction Status: Acute (4) Elevated liver enzymes Status: Acute (5) Post laminectomy syndrome Status: Acute Plan: Her enzymes are within normal limits or trending down. Consult surgery as stated in the subjective. Anticipate discharge today or tomorrow. KVO IV. Time with Patient: Less than 30
[2017-02-04 08:45] LABS: CH 30.2; HCT 38.5 % (34.0-46.0); HDW 2.37; HGB 12.6 gm/dL (11.4-16.0); MCHC 32.7 g/dL (31.0-37.0); MCV 91.7 fL (80.0-100.0); Mean Platelet Volume 7.2; RDW 12.8 % (11.5-15.5); WBC 5.9 k/uL (3.8-10.6)
[2017-02-04 08:49] LABS: ALT 150 U/L (9-52); AST 66 U/L (14-36); Alkaline Phosphatase 95 U/L (38-126); Anion Gap 5 mmol/L; Blood Urea Nitrogen 11 mg/dL (7-17); Calcium 9.3 mg/dL (8.4-10.2); Carbon Dioxide 29 mmol/L (22-30); Chloride 106 mmol/L (98-107); Glucose 86 mg/dL (74-99); Non-African American GFR(MDRD) >60 (>60 ml/min/1.73 sqM); Potassium 4.5 mmol/L (3.5-5.1); Sodium 140 mmol/L (137-145); Total Bilirubin 0.8 mg/dL (0.2-1.3); Total Protein 6.9 g/dL (6.3-8.2)
[2017-02-04] MEDS: PANTOPRAZOLE 40 MG TABLET PO SCH ×2 (09:14→20:13)
[2017-02-04] MEDS: ESTRADIOL 0.5 MG TAB PO SCH (09:14)
[2017-02-04] MEDS: VENLAFAXINE HCL ER 150 MG CAP PO SCH (09:14)
[2017-02-04] MEDS: PILOCARPINE 5 MG TAB PO SCH ×3 (09:14→21:53)
[2017-02-04] MEDS: FENOFIBRATE 160 MG TAB PO SCH (09:15)
[2017-02-04] MEDS: valACYclovir 500 MG TAB PO SCH (09:15)
[2017-02-04] MEDS: lamoTRIgine 100 MG TAB PO SCH ×2 (09:15→20:13)
[2017-02-04] MEDS: MELOXICAM 7.5 MG TAB PO SCH (09:15)
[2017-02-04] MEDS: OXYBUTYNIN XL 5 MG TAB.ER.24 PO SCH (09:15)
[2017-02-04] MEDS: GABAPENTIN 400 MG CAP PO SCH ×3 (09:16→21:53)
[2017-02-04] MEDS: LORazepam 1 MG TAB PO PRN ×2 (09:20→20:12)
--- NOTE | 2017-02-04 10:45 | P.PN ---
Subjective Principal diagnosis: Gallstone pancreatitis possible choledocholithiasis 51-year-old female admitted with acute epigastric abdominal pain with cholelithiasis and elevated pancreatic liver enzymes suspected choledocholithiasis evolving versus passage. This morning she feels better. Minimal abdominal discomfort. LFTs significantly improved. Lipase normalized. Objective - Vital Signs Vital signs: Vital Signs Temp 98 F 02/04/17 07:00 Pulse 70 02/04/17 07:00 Resp 16 02/04/17 07:00 BP 132/60 02/04/17 07:00 Pulse Ox 97 02/04/17 07:00 Intake & Output 02/03/17 02/04/17 02/04/17 18:59 06:59 18:59 Intake Total 720 1490 Balance 720 1490 Intake: Intake, IV Titration 900 Amount Sodium Chloride 0.9% 1, 900 000 ml @ 150 mls/hr IV . Q6H40M STA Rx#:[id number] Oral 720 590 Other: Voiding Method Toilet Toilet # Voids 3 2 - Exam General appearance: The patient is alert, oriented, in no acute distress. HET: Head is normocephalic and atraumatic. Pupils are equal and reactive. Oropharynx is clear without lesions. Neck: Supple without lymphadenopathy. Trachea midline. Heart: S1 S2. Regular rate and rhythm. Lungs: No crackles or wheezes are heard. Abdomen: Soft, nontender, nondistended with bowel sounds. No peritoneal signs. No palpable organomegaly or masses. Extremities: Normal skin color and turgor. No cyanosis, rash, ulceration, clubbing, or edema. Radial and pedal pulses are 2/4 bilaterally. Neurological: No focal deficits. Strength and sensation are grossly intact. - Labs CBC & Chem 7: 02/04/17 08:07 02/04/17 08:07 Labs: Abnormal Lab Results - Last 24 Hours (Table) 02/04/17 Range/Units 08:07 AST 66 H (14-36) U/L ALT 150 H (9-52) U/L Assessment and Plan (1) Acute gallstone pancreatitis Status: Acute (2) Elevated liver enzymes Narrative/Plan: Marked improvement suspected passage of choledocholithiasis. Status: Acute (3) Cholelithiasis Status: Acute Plan: 1. From a GI standpoint agreeable for discharge. Surgical consult has been requested. 2. ERCP not indicated at this time. No further workup. We'll follow as needed. Assessment and plan of care discussed with Dr. Chicas
--- NOTE | 2017-02-04 13:26 | P.GSCN ---
History of Present Illness Consult date: 02/04/17 Reason for Consult: Nonradiating epigastric right upper quadrant pain suspect cholelithiasis gallstones History of present illness: A 51-year-old female being seen at the request of the attending for surgical eval in a patient who has developed acute mid epigastric nonradiating abdominal pain. Patient indicated that she was ok with having Dr. Gilliland evaluate and recommend treatment options and did not need to see Dr.kim Villanueva Patient was noted to have elevated lipase on admission suspected cholelithiasis The lipase this morning is noted to be down to 237 on admission was 1500. Currently the patient continues to report having epigastric pain does radiate to the back. Does have a sensation of nausea. Patient states that she has had poor oral intake secondary to the nausea sensation. Patient stated that she did present to the emergency room on the admission with significant abdominal pain described it as a tightness. Patient stated that she had not had this pain been the past. Patient stated it seemed to occur after she ate a doughnut on the day of admission. She stated that she felt nauseated and did vomit. Patient stated that she did try to use [id number] products such as Gas-X and Pepto-Bismol there was no relief. came into the emergency room for the above-mentioned symptoms. The ultrasound that was obtained did show significant gallstones. Patient does have a significant past medical history patient is disabled secondary to a back injury related to remote incident where the patient fell. Patient denies any prior episodes of abdominal pain. Patient's past surgical history 2 C-sections total abdominal hysterectomy and ovary removed for cystic ovary disease. 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 Review of Systems Essentially unremarkable except as mentioned in the present illness Past Medical History Past Medical History: GERD/Reflux, Hyperlipidemia, Musculoskeletal Disorder, Thyroid Disorder Additional Past Medical History / Comment(s): HX OF SKIN CA, POST LAMINECTOMY SYNDROME. 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 PT STATED HAS LOSS OF INTEREST IN THINGS,FEELS DEPRESSED DAILY, TROUBLE GETTING TO SLEEP THEN SLEEPING TOO MUCH, FEELS BAD ABOUT SELF (FAILURE CAN'T DO ANYTHING)FEELS HOPLESS. WHEN ASKED IF SUICIDAL PT, PT BECAME TEARFULL. REFUSED TO ANSWER FURTHUR QUESTIONS OTHER THAN TO SAY " I WON'T HARM MYSELF WHILE HERE" AND I'M NOT GOING TO BE OBSERVED FOR 72 HOURS ON PSYCH FLOOR. IF YOU SEND ANYONE IN HERE I WILL TELL THEM I WAS JUST BEING SARCASTIC. Smoking Status: Former smoker Past Alcohol Use History: Rare Additional Past Alcohol Use History / Comment(s): Quit smoking 2011. Past Drug Use History: None Reported - Past Family History Father Family Medical History: Unable to Obtain Mother Family Medical History: No Reported History Medications and Allergies Home Medications Medication Instructions Recorded Confirmed Type Estradiol [Estrace] 1 mg PO DAILY 01/09/14 02/02/17 History Fenofibrate [Tricor] 160 mg PO DAILY 01/09/14 02/02/17 History Gabapentin [Neurontin] 800 mg PO TID 01/09/14 02/02/17 History LORazepam [Ativan] 1 mg PO BID PRN 01/09/14 02/02/17 History Levothyroxine Sodium [Synthroid] 50 mcg PO DAILY 01/09/14 02/02/17 History Omeprazole [PriLOSEC] 20 mg PO AC-BID 01/09/14 02/02/17 History lamoTRIgine [LaMICtal] 100 mg PO BID 01/09/14 02/02/17 History Pilocarpine [Salagen] 5 mg PO TID 06/20/15 02/02/17 History Tolterodine ER [Detrol LA] 4 mg PO DAILY 06/20/15 02/02/17 History Zolpidem [Ambien] 10 mg PO HS PRN 06/20/15 02/02/17 History Docusate [Colace] 100 mg PO DAILY PRN 07/26/15 02/02/17 History Zzzquil 50 mg PO HS PRN 07/26/15 02/02/17 History HYDROmorphone HCL [Dilaudid] 4 mg PO QID 10/14/16 02/02/17 History Cyclobenzaprine [Flexeril] 10 mg PO TID PRN 02/02/17 02/02/17 History Dextroamphetamine/Amphetamine 15 mg PO DAILY 02/02/17 02/02/17 History [Adderall Xr 15 mg Capsule] Meloxicam [Mobic] 15 mg PO DAILY 02/02/17 02/02/17 History Oxymorphone HCl [Oxymorphone HCl 30 mg PO DAILY 02/02/17 02/02/17 History ER] Venlafaxine HCl [Effexor XR] 150 mg PO DAILY 02/02/17 02/02/17 History valACYclovir [Valtrex] 500 mg PO DAILY 02/02/17 02/02/17 History Allergies Allergy/AdvReac Type Severity Reaction Status Date / Time oxycodone AdvReac Nausea & Verified 02/02/17 08:19 Vomiting Surgical - Exam Vital Signs Temp Pulse Resp BP Pulse Ox 98.1 F 79 16 131/60 99 02/02/17 06:06 02/02/17 06:06 02/02/17 06:06 02/02/17 06:06 02/02/17 06:06 GENERAL APPEARANCE: 51-year-old female patient is alert, oriented, . Sitting up in bed continues to report having epigastric discomfort. With a sensation of nausea no emesis VITAL SIGNS: Reviewed HEENT: Head is normocephalic and atraumatic. Pupils are equal and reactive. The nares are patent. Oropharynx is clear without lesions. NECK: Supple without lymphadenopathy. Traches midline. HEART: S1, S2. Regular rate and rhythm. No heart palpitations denying chest pain LUNGS: No crackles or wheezes are heard. On room air sats are 97% no shortness of breath noted ABDOMEN: Soft, slight epigastric tenderness with palpitation nondistended with good bowel sounds. No peritoneal signs. No palpable organomegaly or masses. EXTREMITIES: Normal skin color and turgor. No cyanosis, rash, ulceration, clubbing or edema. Radial pedal pulses are 2/4 bilaterally. NEUROLOGICAL: No focal deficits. Strength and sensation are grossly intact. Results - Labs 02/04/17 08:07 02/04/17 08:07 Abnormal Lab Results - Last 24 Hours (Table) 02/03/17 02/04/17 Range/Units 08:21 08:07 Sodium 136 L (137-145) mmol/L Glucose 62 L (74-99) mg/dL Total Bilirubin 2.0 H (0.2-1.3) mg/dL AST 170 H 66 H (14-36) U/L ALT 193 H 150 H (9-52) U/L Amylase 452 H* (30-110) U/L Lipase 853 H (23-300) U/L Diabetes panel 02/03/17 02/04/17 Range/Units 08:21 08:07 Sodium 136 L 140 (137-145) mmol/L Potassium 4.2 4.5 (3.5-5.1) mmol/L Chloride 107 106 (98-107) mmol/L Carbon Dioxide 23 29 (22-30) mmol/L BUN 10 11 (7-17) mg/dL Creatinine 0.74 0.78 (0.52-1.04) mg/dL Glucose 62 L 86 (74-99) mg/dL Calcium 8.4 9.3 (8.4-10.2) mg/dL AST 170 H 66 H (14-36) U/L ALT 193 H 150 H (9-52) U/L Alkaline Phosphatase 91 95 (38-126) U/L Total Protein 6.5 6.9 (6.3-8.2) g/dL Albumin 3.6 3.9 (3.5-5.0) g/dL Calcium panel 02/03/17 02/04/17 Range/Units 08:21 08:07 Calcium 8.4 9.3 (8.4-10.2) mg/dL Albumin 3.6 3.9 (3.5-5.0) g/dL Pituitary panel 02/03/17 02/04/17 Range/Units 08:21 08:07 Sodium 136 L 140 (137-145) mmol/L Potassium 4.2 4.5 (3.5-5.1) mmol/L Chloride 107 106 (98-107) mmol/L Carbon Dioxide 23 29 (22-30) mmol/L BUN 10 11 (7-17) mg/dL Creatinine 0.74 0.78 (0.52-1.04) mg/dL Glucose 62 L 86 (74-99) mg/dL Calcium 8.4 9.3 (8.4-10.2) mg/dL Adrenal panel 02/03/17 02/04/17 Range/Units 08:21 08:07 Sodium 136 L 140 (137-145) mmol/L Potassium 4.2 4.5 (3.5-5.1) mmol/L Chloride 107 106 (98-107) mmol/L Carbon Dioxide 23 29 (22-30) mmol/L BUN 10 11 (7-17) mg/dL Creatinine 0.74 0.78 (0.52-1.04) mg/dL Glucose 62 L 86 (74-99) mg/dL Calcium 8.4 9.3 (8.4-10.2) mg/dL Total Bilirubin 2.0 H 0.8 (0.2-1.3) mg/dL AST 170 H 66 H (14-36) U/L ALT 193 H 150 H (9-52) U/L Alkaline Phosphatase 91 95 (38-126) U/L Total Protein 6.5 6.9 (6.3-8.2) g/dL Albumin 3.6 3.9 (3.5-5.0) g/dL Assessment and Plan Plan: Impression Present on admission acute epigastric abdominal pain suspect due to acute gallstone pancreatitis elevated lipase Present on admission elevated liver enzymes suspect due to cholelithiasis Acute cholelithiasis Continues opiate dependency History of back injury resulting in post laminectomy syndrome Plan Nothing by mouth after midnight tonight scheduled tomorrow for a laparoscopically possible open cholecystectomy per Dr. gilliland Pain control IV fluid for hydration Repeat labs in the morning GI standpoint ERCP not indicated at this time GI will see patient on an as- needed basis Thank you for this kind opportunity to participate in the surgical management of your patient will follow along closely The above dictated assessment and findings were discussed with dr gilliland Impression and the plan of care have been dictated as directed. Sushma Zamudio nurse practitioner acting as a scribe for dr gilliland
[2017-02-04] MEDS: SODIUM CHLORIDE 0.9% 1,000 ML IV SCH (16:50)
[2017-02-05] MEDS ORDERED: ONDANSETRON 4 MG/2 ML VIAL IVP ONE (03:28)
[2017-02-05] MEDS ORDERED: DEXAMETHASONE SOD PHOSPHATE 10 MG/ML 1 ML VIAL IV ONE (03:28)
[2017-02-05] MEDS ORDERED: MIDAZOLAM 2 MG/2 ML VIAL IV PRN (03:28)
[2017-02-05] MEDS ORDERED: SCOPOLAMINE 1.5MG/72HR PATCH TRANSDERM ONE (03:28)
[2017-02-05] MEDS: LEVOTHYROXINE 50 MCG TAB PO SCH (06:33)
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
[2017-02-05] MEDS: HYDROmorphone 1 MG/ML 1 ML SYRINGE IV PRN ×3 (09:16→21:36)
[2017-02-05] MEDS: OXYMORPHONE HCL 5 MG TABLET PO SCH ×4 (09:40→20:05)
[2017-02-05] MEDS: SODIUM CHLORIDE 0.9% 1,000 ML IV SCH (09:41)
[2017-02-05] MEDS: lamoTRIgine 100 MG TAB PO SCH ×2 (09:42→20:06)
[2017-02-05] MEDS: GABAPENTIN 400 MG CAP PO SCH ×3 (09:42→20:07)
[2017-02-05] MEDS: ESTRADIOL 0.5 MG TAB PO SCH (09:42)
[2017-02-05] MEDS: MELOXICAM 7.5 MG TAB PO SCH (09:42)
[2017-02-05] MEDS: FENOFIBRATE 160 MG TAB PO SCH (09:42)
[2017-02-05] MEDS: PILOCARPINE 5 MG TAB PO SCH ×3 (09:43→20:07)
[2017-02-05] MEDS: valACYclovir 500 MG TAB PO SCH (09:43)
[2017-02-05] MEDS: OXYBUTYNIN XL 5 MG TAB.ER.24 PO SCH (09:43)
[2017-02-05] MEDS: VENLAFAXINE HCL ER 150 MG CAP PO SCH (09:43)
[2017-02-05] MEDS: PANTOPRAZOLE 40 MG TABLET PO SCH ×2 (09:43→20:06)
[2017-02-05] MEDS ORDERED: IV FLUID CONTINUATION 800 ML IV ONE (13:33)
[2017-02-05] MEDS ORDERED: HEPARIN SODIUM,PORCINE 5,000 UNIT/ML 1 ML VIAL SQ ONE (13:49)
[2017-02-05] MEDS ORDERED: ceFAZolin 2 GM in SODIUM CHLORIDE 0.9% 100 ML IVPB ONE (13:50)
[2017-02-05] MEDS ORDERED: ROCURONIUM BROMIDE 10 MG/ML 10 ML VIAL IV ONE (14:35)
[2017-02-05] MEDS ORDERED: PROPOFOL 10 MG/ML 20 ML VIAL IV ONE (14:35)
[2017-02-05] MEDS ORDERED: LIDOCAINE 1% INJ 10MG/ML (20 ML MDV) ONE (14:35)
[2017-02-05] MEDS ORDERED: NEOSTIGMINE 1 MG/ML 10 ML VIAL ONE (14:35)
[2017-02-05] MEDS ORDERED: ONDANSETRON 4 MG/2 ML VIAL ONE (14:35)
[2017-02-05] MEDS ORDERED: MIDAZOLAM 2 MG/2 ML VIAL ONE (14:35)
[2017-02-05] MEDS ORDERED: fentaNYL (PF) 50 MCG/ML 2 ML AMP ONE (14:35)
[2017-02-05] MEDS ORDERED: SUCCINYLCHOLINE CHLORIDE 100 MG/5 ML SYR IV ONE (14:35)
[2017-02-05] MEDS ORDERED: GLYCOPYRROLATE 0.2 MG/ML 2 ML VIAL ONE (14:35)
[2017-02-05] MEDS ORDERED: BUPIVACAIN-EPI 0.25%-1:200,000 30 ML VIAL SQ ONE (15:03)
--- NOTE | 2017-02-05 16:09 | P.OP ---
Date of Procedure: 02/05/17 Preoperative Diagnosis: Gallstone pancreatitis Postoperative Diagnosis: Gallstone pancreatitis Procedure(s) Performed: Laparoscopic cholecystectomy Implants: Anesthesia: GIANCARLO Surgeon: Winnie Pereira Pathology: other Condition: stable Disposition: PACU Indications for Procedure: Acute gallstone pancreatitis Operative Findings: Description of Procedure: The patient is a 51-year-old female who presented with epigastric and upper abdominal pain and diagnose as having acute pancreatitis with jaundice. The risks benefits and possible complications of the procedure were discussed in detail and informed consent was obtained. Patient was identified in the preop operating holding area questions were answered and she was taken back to the operating room where she was placed in the supine position. She was given general anesthesia with endotracheal intubation followed by the placement of an orogastric tube and an appropriate timeout was called the indication procedure ALLERGIES medications from her prophylaxis were all discussed. Abdomen is prepped and draped in the usual sterile surgical fashion a 5 mm Optiview technique was used to enter the abdominal cavity in the left upper quadrant at Ramos's point. Once that was done the abdomen insufflated to 15 mmHg. After that a 5 mm supraumbilical port was placed under direct vision along with 25 date port in the right upper quadrant and at the 10 mm port in the epigastrium. The fundus was retracted so as to make the Calot's triangle more visible. There were inflammatory peritoneal adhesions and the gallbladder was distended. The adhesions were taken down with the help of blunt dissection and using some electrocautery, skeletonizing the cystic duct and the multiple branches of the cystic artery. Cystic duct was clipped proximally and distally followed by clipping of the cystic artery following which they were transected sharply with the help of the dejan. The gallbladder was then taken off the gallbladder fossa with the help of electrocautery and placed in an Endo Catch bag and removed through the 10 m port site after dilating the port site with a Kasia. The port was replaced and the gallbladder fossa was inspected and hemostasis was secured with the help of electrocautery the abdomen was thoroughly irrigated and sucked dry. [place] were noted to be in the appropriate position at this time to take procedure was terminated. the 10 mm port was removed and the port site was closed with the help of a Rod Jefferson using 0 Vicryl.The Gas was shut off and all the 5 mm ports were removed. The abdomen was thoroughly desufflated. The remaining local anesthesia was infiltrated into the incisions and the incisions were closed with the help of 4-0 Monocryl Steri-Strips and dermabond was applied. The patient was extubated and taken to recovery room in stable condition the orogastric was removed prior to extubation. There were no complications.
[2017-02-05] MEDS ORDERED: PROMETHAZINE INJ 25 MG/ML 1 ML VIAL IVPB ONE ×2 (16:11)
[2017-02-05] MEDS ORDERED: HYDROmorphone 1 MG/ML 1 ML SYRINGE IVP ONE ×3 (16:13→16:28)
[2017-02-05] MEDS ORDERED: LACTATED RINGERS 1,000 ML IV ONE (16:19)
[2017-02-05] MEDS ORDERED: KETOROLAC 30 MG/ML 1 ML VIAL IVP ONE (16:30)
[2017-02-05] MEDS: LACTATED RINGERS 1,000 ML IV SCH (17:48)
[2017-02-05] MEDS: KETOROLAC 30 MG/ML 1 ML VIAL IVP SCH (17:55)
[2017-02-05] MEDS: HEPARIN SODIUM,PORCINE 5,000 UNIT/ML 1 ML VIAL SQ SCH (20:06)
[2017-02-06] MEDS: OXYMORPHONE HCL 5 MG TABLET PO SCH ×4 (00:21→12:22)
[2017-02-06] MEDS: KETOROLAC 30 MG/ML 1 ML VIAL IVP SCH ×3 (00:21→12:22)
[2017-02-06] MEDS: HYDROmorphone 1 MG/ML 1 ML SYRINGE IV PRN ×2 (00:38→08:31)
[2017-02-06] MEDS: LACTATED RINGERS 1,000 ML IV SCH (05:20)
[2017-02-06] MEDS: LEVOTHYROXINE 50 MCG TAB PO SCH (05:22)
[2017-02-06 07:14] LABS: Basophils % (A) 0 %; CH 30.6; CHCM 34.5; Eosinophils # (A) 0.1 k/uL (0-0.7); Eosinophils % (A) 1 %; HCT 38.7 % (34.0-46.0); HDW 2.55; HGB 13.2 gm/dL (11.4-16.0); Luc # (Auto) 0.17; Luc % (Auto) 2; Lymphocytes % (A) 21 %; MCH 30.3 pg (25.0-35.0); MCV 89.1 fL (80.0-100.0); Mean Platelet Volume 6.8; Monocytes # (A) 0.5 k/uL (0-1.0); Monocytes % (A) 5 %; Neutrophils # (A) 6.9 k/uL (1.3-7.7); Neutrophils % (A) 71 %; RBC 4.34 m/uL (3.80-5.40); RDW 12.8 % (11.5-15.5); WBC 9.7 k/uL (3.8-10.6)
[2017-02-06 07:40] LABS: Amylase 53 U/L (30-110)
[2017-02-06] MEDS: VENLAFAXINE HCL ER 150 MG CAP PO SCH (08:19)
[2017-02-06] MEDS: valACYclovir 500 MG TAB PO SCH (08:19)
[2017-02-06] MEDS: PANTOPRAZOLE 40 MG TABLET PO SCH (08:20)
[2017-02-06] MEDS: MELOXICAM 7.5 MG TAB PO SCH (08:20)
[2017-02-06] MEDS: PILOCARPINE 5 MG TAB PO SCH (08:20)
[2017-02-06] MEDS: OXYBUTYNIN XL 5 MG TAB.ER.24 PO SCH (08:20)
[2017-02-06] MEDS: HEPARIN SODIUM,PORCINE 5,000 UNIT/ML 1 ML VIAL SQ SCH (08:21)
[2017-02-06] MEDS: FENOFIBRATE 160 MG TAB PO SCH (08:21)
[2017-02-06] MEDS: GABAPENTIN 400 MG CAP PO SCH (08:21)
[2017-02-06] MEDS: lamoTRIgine 100 MG TAB PO SCH (08:21)
[2017-02-06] MEDS: ESTRADIOL 0.5 MG TAB PO SCH (08:22)
[2017-02-06 09:07] VITALS: BP 100/51; PULSE 68; RESP 18; TEMP 98.2
[2017-02-06] MEDS: SODIUM CHLORIDE 0.9% 1,000 ML IV SCH (09:27)
[2017-02-06] MEDS ORDERED: ONDANSETRON 4 MG/2 ML VIAL IVP PRN (10:26)
--- NOTE | 2017-02-06 12:32 | P.DS ---
Providers Date of admission: 02/02/17 08:58 Expected date of discharge: 02/06/17 Attending physician: Donovan Yepez Consults: 02/04/17 08:07 Consult Physician Routine Consulting Provider: Winnie Pereira Consult Reason/Comments: cholecystitis Do you want consulting provider notified?: Already Contacted Primary care physician: Donovan Yepez - Discharge Diagnosis(es) (1) Acute gallstone pancreatitis Current Visit: Yes Status: Acute (2) Cholelithiasis Current Visit: Yes Status: Acute (3) Cholelithiasis and cholecystitis with obstruction Current Visit: Yes Status: Acute (4) Elevated liver enzymes Current Visit: Yes Status: Acute Hospital Course: The patient is a 51 year old female who was admitted with gallstone pancreatitis 02/02/2017. She is well known to me for history of gastroesophageal reflux disease. She reports waking up on the day of admission with severe abdominal pain. Diagnostic studies were consistent with multiple gallstones as well as acute gallstone pancreatitis. She underwent a laparoscopic cholecystectomy uneventful yesterday as her liver enzymes had improved. This morning her pancreatic enzymes are normal. She had tolerated regular diet and pass flatus. She reports her pain is completely controlled. No reports of nausea or vomiting. She is eager to go home. GENERAL: Well developed and in no acute distress. Pleasant. HEENT: No sclera icterus. Extraocular movements grossly intact. Moist buccal mucosa. Head is atraumatic, normocephalic. Hears conversational speech. No nasal drainage. NECK: Supple without lymphadenopathy. No JV distention. CHEST: Non-labored respirations and equal bilateral excursions. CARDIOVASCULAR: Regular rate and rhythm. Palpable 2+ radial pulses. ABDOMEN: Soft, nontender. Nondistended. Ecchymosis over laparoscopic sites. No signs of infection or cellulitis. MUSCULOSKELETAL: No clubbing, cyanosis or edema. NEUROLOGIC: No focal or lateralizing signs. PSYCH: Appropriate affect. Alert and oriented to person, place and time. SKIN: Multiple bruising along the arm following IV insertions. Pertinent Studies: Ultrasound of the gallbladder consistent with gallstones. Procedures: Laparoscopic cholecystectomy Patient Condition at Discharge: Stable Plan - Discharge Summary Discharge Medication List Estradiol [Estrace] 1 mg PO DAILY 01/09/14 [History] Fenofibrate [Tricor] 160 mg PO DAILY 01/09/14 [History] Gabapentin [Neurontin] 800 mg PO TID 01/09/14 [History] LORazepam [Ativan] 1 mg PO BID PRN 01/09/14 [History] Levothyroxine Sodium [Synthroid] 50 mcg PO DAILY 01/09/14 [History] Omeprazole [PriLOSEC] 20 mg PO AC-BID 01/09/14 [History] lamoTRIgine [LaMICtal] 100 mg PO BID 01/09/14 [History] Pilocarpine [Salagen] 5 mg PO TID 06/20/15 [History] Tolterodine ER [Detrol LA] 4 mg PO DAILY 06/20/15 [History] Zolpidem [Ambien] 10 mg PO HS PRN 06/20/15 [History] Docusate [Colace] 100 mg PO DAILY PRN 07/26/15 [History] Zzzquil 50 mg PO HS PRN 07/26/15 [History] HYDROmorphone HCL [Dilaudid] 4 mg PO QID 10/14/16 [History] Cyclobenzaprine [Flexeril] 10 mg PO TID PRN 02/02/17 [History] Dextroamphetamine/Amphetamine [Adderall Xr 15 mg Capsule] 15 mg PO DAILY [History] Meloxicam [Mobic] 15 mg PO DAILY 02/02/17 [History] Oxymorphone HCl [Oxymorphone HCl ER] 30 mg PO DAILY 02/02/17 [History] Venlafaxine HCl [Effexor XR] 150 mg PO DAILY 02/02/17 [History] valACYclovir [Valtrex] 500 mg PO DAILY 02/02/17 [History] Follow up Appointment(s)/Referral(s): Donovan Yepez MD [Primary Care Provider] - 1-2 days Lulu Davis MD [STAFF PHYSICIAN] - 02/16/17 Patient Instructions/Handouts: Laparoscopic Cholecystectomy (DC), Low Fat Diet (DC) Activity/Diet/Wound Care/Special Instructions: No lifting over 4 pounds in 2 weeks. Notify surgical office for any issues. May take Aleve or ibuprofen or Tylenol for pain. May shower, no bath tub soaks. No swimming until evaluated by surgeon. Discharge Disposition: HOME SELF-CARE
[2017-02-07] MEDS ORDERED: PANTOPRAZOLE 40 MG/10 ML VIAL IVP SCH (09:00)
--- NOTE | 2017-02-07 10:39 | PN ---
I am covering for Dr. Yepez. DATE OF SERVICE: 02/06/2017 This 51-year-old gentleman admitted with acute cholecystitis had laparoscopic cholecystectomy. No chest pain. No palpitations. No fever. On exam, alert and oriented times three. Pulse 68. Blood pressure 100/51. Respiratory rate 18. Temperature 98.2. Pulse ox 97% on room air. HEENT: Conjunctivae normal. NECK: No jugular venous distention. CARDIOVASCULAR: S1, S2 muffled. RESPIRATORY: Breath sounds diminished at the bases. No rhonchi. No crackles. ABDOMEN: Soft, status post surgery. LEGS: No edema. No swelling. Nervous system: Higher function as mentioned earlier. No focal deficits. LABS: CBC within normal limits. AST 66, ALT 150. Amylase and lipase within normal limits. ASSESSMENT: 1. Acute gallstone pancreatitis, status post laparoscopic cholecystectomy. 2. Cholelithiasis and cholecystitis. 3. Elevated liver enzymes. 4. Acute pancreatitis secondary to gallstone pancreatitis. 5. Post laminectomy syndrome. 6. Opiate dependence, continuous. 7. Increased AST, ALT, improving. RECOMMENDATIONS AND DISCUSSION: Recommended to continue current medications. Continue symptomatic treatment. Otherwise, surgery is planning the patient will be discharged. I have recommend to continue incentive spirometry. Closely follow with Dr. Yepez. Resume the home medications. Further recommendations to follow.
== END 2017-02-06 12:55 | disposition home or self-care (01) | DRG 418 ==
LOC: EC 06:02 → 4MS4W 08:58 → 5MS5E 09:18
PROVIDERS: ADMIT Family Medicine; ATTEND Family Medicine
PROC: 0FT44ZZ Resection of Gallbladder, Percutaneous Endoscopic Approach (ICD-10-PCS; principal; 2017-02-05 13:30)
DX: K85.10 Biliary acute pancreatitis without necrosis or infection (principal); F11.20 Opioid dependence, uncomplicated; K80.12 Calculus of gallbladder with acute and chronic cholecystitis without obstruction; E78.5 Hyperlipidemia, unspecified; M96.1 Postlaminectomy syndrome, not elsewhere classified; F41.9 Anxiety disorder, unspecified; F31.9 Bipolar disorder, unspecified; E07.9 Disorder of thyroid, unspecified; G89.29 Other chronic pain; K21.9 Gastro-esophageal reflux disease without esophagitis; Z85.828 Personal history of other malignant neoplasm of skin; Z90.710 Acquired absence of both cervix and uterus; Z87.891 Personal history of nicotine dependence; Z79.891 Long term (current) use of opiate analgesic; Z79.890 Hormone replacement therapy; Z79.1 Long term (current) use of non-steroidal anti-inflammatories (NSAID); Z79.899 Other long term (current) drug therapy
CPT/HCPCS: 36415; 74000; 76705; 80053; 80074; 81001; 82150; 82550; 82553; 83690; 84484; 85025; 85027; 85610; 88304; 93005

== ENCOUNTER → 2017-02-17 | Outpatient (CLI) | payer MEDICAID, MEDICARE ==
[2017-02-17 13:25] VITALS: BP 131/66; PULSE 83; RESP 16; TEMP 98.9
--- NOTE | 2017-02-19 10:57 | P.PN ---
Subjective This is follow-up visit for this patient with a history of severe and chronic low back pain secondary to failed back surgery syndrome lumbar area , lumbar spondylosis with facet arthropathy, and sacroiliitis we have done interventional pain management injection,, radiofrequency ablation of the sacroiliac joint, and recently we have done a caudal epidural steroid injections with lysis of epidural adhesions, and this provided her with some pain relief , and she is currently on multiple pain medication 1-oxymorphone extended-release 30 mg daily 2-Dilaudid 4 mg every 6 hours 3-Neurontin 800 mg 3 times a day. 4-Flexeril 10 mg 3 times a day Patient denies any side effects of the medication, denies excessive drowsiness or sleepiness, denies suicidal ideation, and reports that the current pain medication is NOT helping To control the pain and improve activity of daily living Patient denies any motor or sensory deficit , patient denies any fever or night sweats, denies any change in the bowel movements or urination Physical Examinations : 1-Constitutiona : Cooperative , not in acute distress . 2-HEENT : nech ; supple , no Lymphadenopathy , no Thyromegaly , normal thyroid size . eyes : no ptosis , no icterus, no photophobia . ENT : normal of hearing , normal oropharynx , no Thrush . 3- Respiratory : Chest clear to auscultations Bilaterally , no wheezing , no Rhonchi . 4- Cardiovascular : regular rate and rhythem , S1 , S2 , no S3 , no S4. 5- Gastrointestinal : abdomen soft no tenderness , bowel sounds positive all four quadrents , no organomegally . 6- Genitourinary : Defferred . 7- neurologic : Cranial nerve II to XII intact , no focal neurological deffecit . 8-psychatric : alert , oriented X 3 , appropriate affect , intact judgment and insight . 9-Lymphatic : no Lymphadenopathy . 10- musculoskeltal : exams of the Lumber spine = motor strength lower extremities ,thigh and legs .5/5 deep tendon reflexes : normal Knee Jerk , normal ankle Jerk . lumber facet Loading Test positive strait leg raising test positive at 30 degree , RT ,LT , Fabere test positive RT and positive LT . Range of motion: Range of motion in flexion of the lumbar spine 30 degrees Range of motion range of motion of extension of the lumbar spine 10 Sever tenderness over the Sacroiliac joint on the Right , and Left side Assessment and plan = Chronic low back pain secondary to lumbar failed back surgery syndrome , lumbar spondylosis with facet arthropathy without myelopathy , and sacroiliitis chronic and current use of high-risk medication (Opioids). The patient was counseled about risk of opioid use, psychological risk associated with opioids and was orally counseled to not overuse , divert,or sell dictations to take medications as prescribed only , and to restore medication in safe location , and the patient counseled against driving while using narcotic medications, and also not to use alcohol or any illicit recreational drugs, the patient's verbalized understanding that the lack of compliance will result in failure to renew narcotic prescription and possible discharge from the clinic - diagnoses, prognosis, and treatment options including but not limited to physical therapy, surgical interventions, interventional therapies , and medication management including narcotics and adjuvant medication were discussed with the patient and all the questions answered Patient getting prescription refill for her pain medication from her primary care She could benefit from Mobic 7.5 mg twice a day, prescription given, and also patient she could benefit from caudal epidural steroid injection with lysis of epidural adhesions Also patient could benefit from weight loss program/surgery, she is obese and she could benefit from weight loss, weight loss could help to improve her low back pain Objective - Vital Signs Vital signs: Vital Signs Temp 98.9 F 02/17/17 13:11 Pulse 83 02/17/17 13:11 Resp 16 02/17/17 13:11 BP 131/66 02/17/17 13:11 Pulse Ox 96 02/17/17 13:11
== END ==
LOC: PNWHC3 12:57
PROVIDERS: ATTEND Specialist
DX: M47.816 Spondylosis without myelopathy or radiculopathy, lumbar region (principal); M46.86 Other specified inflammatory spondylopathies, lumbar region; M46.1 Sacroiliitis, not elsewhere classified; G89.29 Other chronic pain; Z79.891 Long term (current) use of opiate analgesic; Z98.890 Other specified postprocedural states
CPT/HCPCS: 99211

== ENCOUNTER 2017-03-10 06:30 | Day surgery (SDC) | payer MEDICAID, MEDICARE ==
[2017-03-10] MEDS ORDERED: LACTATED RINGERS 1,000 ML IV ONE (07:05)
[2017-03-10 07:06] VITALS: RESP 16; TEMP 97.9
[2017-03-10] MEDS ORDERED: LACTATED RINGERS 1,000 ML IV SCH (08:00)
[2017-03-10] MEDS ORDERED: fentaNYL (PF) 50 MCG/ML 2 ML AMP ONE (08:08)
[2017-03-10] MEDS ORDERED: IOHEXOL 180 MG/ML 1 ML ML ONE (08:08)
[2017-03-10] MEDS ORDERED: DEXAMETHASONE SOD PHOS (MDV) 100 MG/10 ML VIAL ONE (08:08)
[2017-03-10] MEDS ORDERED: MIDAZOLAM 2 MG/2 ML VIAL ONE (08:08)
[2017-03-10] MEDS ORDERED: IV FLUID CONTINUATION 1,000 ML IV ONE (08:32)
--- NOTE | 2017-03-10 08:41 | FL ---
FLUOROSCOPY 8 seconds of fluoroscopy time were utilized during caudal epidural injection. 0 images document the p rocedure.
--- NOTE | 2017-03-10 08:59 | P.PCN ---
Date of Procedure: 03/10/17 Preoperative Diagnosis: Postoperative Diagnosis: Procedure(s) Performed: Implants: Surgeon: Sunny Jolley Pathology: none sent Condition: stable Disposition: PACU Indications for Procedure: Operative Findings: Description of Procedure: PREOP DIAGNOSIS: Lumbar postlaminectomy syndrome POSTOP DIAGNOSIS: Lumbar postlaminectomy syndrome PROCEDURE: Caudal epidural steroid injection with epidurolysis and epidurogram under fluoroscopic guidance ANESTHESIA: Local with 1% lidocaine; conscious sedation EBL: Minimal. PROCEDURE INDICATION: The patient with post-laminectomy syndrome with low back pain and radiculopathy radiating down in both legs, here for a caudal epidural steroid injection with epidurolysis, #3 in series. Patient does not use any blood thinning medications. PROCEDURE DESCRIPTION: The patient was seen and identified in the preoperative area. Risks, benefits, complications, and alternatives were discussed with the patient including but not limited to bleeding, infection, nerve damage, incomplete pain relief, and allergic reactions to medications. The patient agreed to proceed with the procedure and signed the consent after all questions were answered. IV was started, and vital signs were stable. Patient was taken to the OR and time out was completed to verify proper patient , procedure, laterality of pain, and allergies. The patient was placed in the prone position on procedure table and a pillow was placed under the abdomen to reduce lumbar lordosis. The lumbosacral area was prepped and draped in the usual sterile fashion. Critical pause was taken. Vital signs were closely monitored during the procedure. Fluoroscopic camera was placed in the lateral view and the anterior-posterior plates of the sacrum were identified with infiltration of the area overlying the sacral hiatus with 1% lidocaine .A 16 gauge RK epidural needle was used to advance through the sacral hiatus into the caudal epidural space. Omnipaque 300 dye 2cc was injected and the position of the needle was verified to be in the midline. A Racz catheter was introduced into the epidural space and was advanced towards the L5-S1 interspace under direct fluoroscopic guidance. Multiple passes were made with the catheter for lysis of epidural adhesions. Decadron 20 mg with 3ml of preservative free Lidocaine 1% and 7 ml of preservative free normal saline was injected slowly. Additional spread was seen to L4 under fluoroscopy. The needle and the catheter were withdrawn intact. EPIDUROGRAM: Omnipaque 300 dye 2 ml was injected with spread of the dye into the caudal epidural space and with spread cutoff at L5 prior to epidurolysis. Post epidurolysis dye 2 ml was injected and spread was seen to L4.There was further spread of the solution together with the dye above the L4. COMPLICATIONS: None. DISPOSITION / PLANS: The patient was placed in a supine position and transferred to the recovery area in a stable condition for observation and was discharged from the recovery room after meeting discharge criteria. Home discharge instructions given to the patient by the staff. The patient was reexamined prior to discharge. The patient will schedule a follow up in the clinic in 2-4 weeks.
[2017-03-10 09:07] VITALS: BP 113/54; PULSE 80
== END 2017-03-10 09:33 | disposition home or self-care (01) ==
LOC: ORPAIN 06:30
PROVIDERS: ATTEND Anesthesiology
DX: G89.29 Other chronic pain (principal); M96.1 Postlaminectomy syndrome, not elsewhere classified; M54.16 Radiculopathy, lumbar region; M47.816 Spondylosis without myelopathy or radiculopathy, lumbar region; M46.96 Unspecified inflammatory spondylopathy, lumbar region; M46.1 Sacroiliitis, not elsewhere classified; Z79.891 Long term (current) use of opiate analgesic; Z79.899 Other long term (current) drug therapy; Z88.5 Allergy status to narcotic agent
CPT/HCPCS: 62264; J2250; Q9965; J3010; J1100; 62323

== ENCOUNTER → 2017-05-13 | Outpatient (CLI) | payer MEDICAID, MEDICARE ==
--- NOTE | 2017-05-13 13:56 | CT ---
EXAMINATION TYPE: CT lumbar spine wo con DATE OF EXAM: 05/13/2017 1:38 PM COMPARISON: Previous study dated 12/12/2013. HISTORY: low back pain X many years, no recent injury, hx of lumbar fusion CT DLP: 952 mGycm Automated exposure control for dose reduction was used. Unenhanced CT of the lumbar spine was performed. Bone and soft tissue window settings are submitted as well as coronal and sagittal reconstructions. FINDINGS: Paraspinal soft tissues are normal. There is been an extensive interpedicular fusion extending from L2 through S1. There is an interbody fusion at L1-2. Since the previous examination there has developed endplate irregularity at L5-S1. Th ere is a vacuum disc phenomenon at this level excluding discitis. I suspect there is motion at this l evel. There has been a laminectomy extending from L2 through S1. There is metallic artifact through the region of fusion. No definite recurrent protrusion is seen. Th ere is facet arthropathy above the level of fusion. IMPRESSION: EXTENSIVE POSTSURGICAL CHANGE AND STREAK ARTIFACT LIMITING QUALITY OF THIS STUDY.
== END | disposition home or self-care (01) ==
LOC: RADCTMAIN 13:23
PROVIDERS: ATTEND Psychiatry & Neurology Neurology
DX: M54.5 Low back pain (principal); Z88.8 Allergy status to other drugs, medicaments and biological substances; Z98.1 Arthrodesis status
CPT/HCPCS: 72131

== ENCOUNTER → 2017-05-18 | Outpatient (CLI) | payer MEDICAID, MEDICARE ==
[2017-05-18 10:36] LABS: ALT 36 U/L (9-52); AST 23 U/L (14-36); Alkaline Phosphatase 65 U/L (38-126); Anion Gap 11 mmol/L; Blood Urea Nitrogen 16 mg/dL (7-17); Calcium 9.8 mg/dL (8.4-10.2); Carbon Dioxide 29 mmol/L (22-30); Chloride 101 mmol/L (98-107); Glucose 100 mg/dL (74-99); Non-African American GFR(MDRD) 58 (>60 ml/min/1.73 sqM); Potassium 4.2 mmol/L (3.5-5.1); Sodium 141 mmol/L (137-145); Total Bilirubin 0.4 mg/dL (0.2-1.3); Total Protein 7.4 g/dL (6.3-8.2)
== END | disposition home or self-care (01) ==
LOC: LABWHC1 09:13
PROVIDERS: ATTEND Psychiatry & Neurology Pain Medicine
DX: Z51.81 Encounter for therapeutic drug level monitoring (principal); Z79.899 Other long term (current) drug therapy
CPT/HCPCS: 36415; 80053

== ENCOUNTER → 2017-05-24 | Outpatient (CLI) | payer MEDICAID, MEDICARE ==
--- NOTE | 2017-05-26 06:55 | MM ---
Reason for exam: screening (asymptomatic). Last mammogram was performed 1 year and 2 months ago. History: Patient is postmenopausal and history of other cancer. Family history of breast cancer in aunt at age 40, breast cancer in aunt, and breast cancer in grandmother at age 40. Taking estrogen for 2 years. Physical Findings: A clinical breast exam by your physician is recommended on an annual basis and results should be correlated with mammographic findings. MG 3D Screening Mammo W/Cad Bilateral CC and MLO view(s) were taken. Prior study comparison: April 06, 2016, bilateral MG 3d screening mammo w/cad. April 03, 2015, bilateral MG screening mammo w CAD. March 07, 2014, bilateral MG screening mammo w CAD. The breast tissue is heterogeneously dense. This may lower the sensitivity of mammography. There is no discrete abnormality. ASSESSMENT: Negative, BI-RAD 1 RECOMMENDATION: Routine screening mammogram of both breasts in 1 year.
== END | disposition home or self-care (01) ==
LOC: RADMAMWWP 14:53
PROVIDERS: ATTEND Obstetrics & Gynecology
DX: Z12.31 Encounter for screening mammogram for malignant neoplasm of breast (principal)
CPT/HCPCS: 77063; G0202

== ENCOUNTER → 2017-10-21 | Outpatient (CLI) | payer MEDICAID, MEDICARE ==
[2017-10-21 11:36] LABS: Basophils % (A) 1 %; Eosinophils # (A) 0.1 k/uL (0-0.7); Eosinophils % (A) 2 %; HCT 39.9 % (34.0-46.0); HGB 13.1 gm/dL (11.4-16.0); Lymphocytes % (A) 39 %; MCH 29.1 pg (25.0-35.0); MCHC 32.9 g/dL (31.0-37.0); MCV 88.5 fL (80.0-100.0); Mean Platelet Volume 7.1; Monocytes # (A) 0.3 k/uL (0-1.0); Monocytes % (A) 6 %; Neutrophils # (A) 2.6 k/uL (1.3-7.7); Neutrophils % (A) 49 %; Platelet Count 421 k/uL (150-450); RBC 4.51 m/uL (3.80-5.40); RDW 12.5 % (11.5-15.5); WBC 5.2 k/uL (3.8-10.6)
[2017-10-21 11:49] LABS: ALT 24 U/L (9-52); AST 21 U/L (14-36); Albumin 4.6 g/dL (3.5-5.0); Alkaline Phosphatase 50 U/L (38-126); Anion Gap 10 mmol/L; Appearance,Urine Cloudy (Clear); Bilirubin,Urine Negative (Negative); Blood Urea Nitrogen 13 mg/dL (7-17); Blood,Urine Negative (Negative); Calcium 10.5 mg/dL (8.4-10.2); Carbon Dioxide 31 mmol/L (22-30); Chloride 101 mmol/L (98-107); Color,Urine Yellow; Glucose 101 mg/dL (74-99); Glucose,Urine (UA) Negative (Negative); Ketones,Urine Negative (Negative); Leukocyte Esterase,Urine Negative (Negative); Mucus,Urine Rare /hpf; Nitrite,Urine Negative (Negative); PH, Urine 7.5 (5.0-8.0); Potassium 4.9 mmol/L (3.5-5.1); Protein,Urine Trace (Negative); Sodium 142 mmol/L (137-145); Specific Gravity,Urine 1.018 (1.001-1.035); Squamous Epithelial Cell,Urine 1 /hpf (0-4); Total Bilirubin 0.2 mg/dL (0.2-1.3); Total Protein 7.4 g/dL (6.3-8.2)
--- NOTE | 2017-10-21 11:58 | XR ---
EXAMINATION TYPE: XR chest 2V DATE OF EXAM: 10/21/2017 COMPARISON: Chest x-ray February 18, 2016. HISTORY: Presurgical study. TECHNIQUE: Frontal and lateral views of the chest are obtained. FINDINGS: Eventration of right hemidiaphragm is present. There is no focal air space opacity, pleura l effusion, or pneumothorax seen. The cardiac silhouette size is within normal limits. Spine is stra ightened on lateral view. There is redemonstration of surgical change thoracolumbar junction and uppe r lumbar spine. Large fixating cage with some ossific fusion is seen at this level. There is partial visualization of posterior fusion hardware below this. IMPRESSION: No acute cardiopulmonary process. No significant change from prior.
== END | disposition home or self-care (01) ==
LOC: LABWHC1 11:04
PROVIDERS: ATTEND Family Medicine
DX: I10 Essential (primary) hypertension (principal); E03.9 Hypothyroidism, unspecified; R41.3 Other amnesia
CPT/HCPCS: 36415; 71046; 80053; 81001; 85025; 85610

== ENCOUNTER → 2018-03-26 | Outpatient (CLI) | payer MEDICAID, MEDICARE ==
--- NOTE | 2018-03-28 08:36 | CT ---
EXAMINATION TYPE: CT thoracic spine wo con DATE OF EXAM: 03/28/2018 COMPARISON: CT lumbar spine dated 05/13/2017 HISTORY: Fusion of spine thoracolumbar CT DLP: 1519 mGycm Automated exposure control for dose reduction was used. FINDINGS: The thoracic vertebral bodies maintain normal vertebral body heights and alignment. Although no local izer images from the cervical spine are seen to account the vertebrae there appears to be postsurgica l changes at T10, T11, and T12 although correlation with surgical history and levels are recommended. These are seen as pedicular screws and fixation rods. Postsurgical changes create spray artifact and partially limiting evaluation at these levels. Degenerative disc disease is seen of the lower cervical spine displayed as intervertebral disc space narrowing and anterior osteophytes. Posterior disc ossify complexes also seen at C6-C7. At T10-T11 left-sided facet arthropathy and heterotopic ossification are seen posteriorly mildly narr owing the spinal canal. Facet arthropathy is also noted at T11-T12 without significant neural foramin al narrowing or spinal canal stenosis. Resection of the spinous processes is seen at this level. There is no evidence of hardware fracture or postoperative malalignment. No gross evidence of disc he rniation or neural foraminal narrowing is seen at any thoracic level, however these findings are limi noreen on CT. IMPRESSION: 1. No evidence of postsurgical vertebral body height loss or malalignment. No evidence of hardware fr acture. 2. Heterotopic ossification is T10-T11 and left-sided facet arthropathy resulting in mild spinal juana l stenosis. 3. No gross evidence of disc herniation at any thoracic vertebral level, however this finding is slig htly limited on CT and is better evaluated with MRI.
== END | disposition home or self-care (01) ==
LOC: RADCTMAIN 08:28
PROVIDERS: ATTEND Neurological Surgery
DX: M48.04 Spinal stenosis, thoracic region (principal); M46.94 Unspecified inflammatory spondylopathy, thoracic region; M53.84 Other specified dorsopathies, thoracic region
CPT/HCPCS: 72128

== ENCOUNTER → 2018-04-15 | Outpatient (CLI) | payer MEDICAID, MEDICARE ==
--- NOTE | 2018-04-17 09:16 | MR ---
EXAMINATION TYPE: MR thoracic spine wo/w con DATE OF EXAM: 04/15/2018 COMPARISON: CT 03/26/2018 HISTORY: pseudoarthrosis after fusion, back pain CONTRAST: Performed utilizing 8 mL intravenous Gadavist gadolinium contrast. TECHNIQUE: Multiplanar, multiecho imaging on a 3.0 Mehreen magnet is performed through the thoracic spi ne. Spinal cord maintains normal signal through its visualized course. Vertebral body alignment is normal. Vertebral body heights are preserved. T7-8: There is mild right paracentral disc bulge with mild anterior thecal sac compression. No cord c ontact is evident. No spinal canal stenosis or neural foraminal stenosis is present. Disc hydration levels are preserved. Pedicle screws are present T10 T11 T12. There is limited evaluation of the T10-11 spinal canal level. Susceptibility artifact makes the additional levels nondiagnostic. Susceptibility is greater than ty pically identified are postsurgical. No spinal canal stenosis is evident. IMPRESSIONS: 1. Susceptibility is greater than typically identified on MRI at the postsurgical levels in the lower thoracic spine. These areas are nondiagnostic. 2. Minimal disc bulging T7-8 right paracentral region with mild anterior thecal sac contact.
--- NOTE | 2018-04-17 09:23 | MR ---
EXAMINATION TYPE: MR lumbar spine wo con DATE OF EXAM: 04/15/2018 COMPARISON: 05/13/2017 CT lumbar spine HISTORY: pseudoarthrosis after fusion or arthrodesis, back pain CONTRAST: 0 mL intravenous Gadavist. TECHNIQUE: Multiplanar, multisequence images of the lumbar spine were acquired. FINDINGS: Findings are essentially limited to the axial images. Multilevel susceptibility from pedic le screws as well as fixation rods is present. Pertinent findings are discussed below. There is incom plete evaluation of all levels. L5-S1: Mild disc bulging is anterior thecal sac contact. AP spinal canal stenosis is not present. For amen cannot be evaluated. L4-L5: There is left paracentral anterior thecal sac compression to moderate degree. Susceptibility a rtifact is present which may create an artifactual appearance. However, Disc bulge is suspected. Pilo elate for left L5 radicular symptoms. This area had a more normal appearance on the CT of 05/13/2017. Foramen cannot be evaluated. No AP spinal canal stenosis is present. L3-L4: Level is nondiagnostic. No obvious anterior thecal sac compression is evident L2-L3: Level is nondiagnostic. L1-L2: Level is nondiagnostic. T12-L1: Level is nondiagnostic. IMPRESSION: 1. Very limited examination. 2. Suspicion of disc bulging L4-5 left paracentral region. Correlate for left L5 radicular symptoms. This may be accentuated or artifactual from susceptibility artifact this level.
== END ==
LOC: RADMRIMAIN 12:19
PROVIDERS: ATTEND Neurological Surgery
DX: M51.24 Other intervertebral disc displacement, thoracic region (principal); M96.0 Pseudarthrosis after fusion or arthrodesis
CPT/HCPCS: 72148; 72157; A9581

== ENCOUNTER → 2018-05-02 | Outpatient (CLI) | payer MEDICAID, MEDICARE ==
--- NOTE | 2018-05-02 11:26 | XR ---
EXAMINATION TYPE: XR chest 2V DATE OF EXAM: 05/02/2018 COMPARISON: Prior chest x-ray December 19, 2017. HISTORY: History of back surgery with chest pain. TECHNIQUE: Frontal and lateral views of the chest are obtained. FINDINGS: There is no focal air space opacity, pleural effusion, or pneumothorax seen. The cardiac silhouette size is within normal limits. There is no surgical change beginning in the lower thoracic spine with posterior fusion hardware partially imaged. There is partial visualization of metallic ely tebral device. Cholecystectomy clips are noted on lateral view. IMPRESSION: No acute cardiopulmonary process. No significant change from prior.
[2018-05-02 12:11] LABS: Albumin 4.7 g/dL (3.5-5.0); Calcium 10.2 mg/dL (8.4-10.2); Potassium 4.6 mmol/L (3.5-5.1); Total Bilirubin 0.6 mg/dL (0.2-1.3); Total Protein 7.8 g/dL (6.3-8.2)
== END ==
LOC: RADXRMAIN 10:57
PROVIDERS: ATTEND Family Medicine
DX: R07.9 Chest pain, unspecified (principal)
CPT/HCPCS: 36415; 71046; 80053

== ENCOUNTER → 2018-05-25 | Outpatient (CLI) | payer MEDICAID, MEDICARE ==
--- NOTE | 2018-05-26 14:17 | MM ---
Reason for exam: screening (asymptomatic). Last mammogram was performed 1 year ago. History: Patient is postmenopausal and history of other cancer. Family history of breast cancer in aunt at age 40, breast cancer in aunt, and breast cancer in grandmother at age 40. Taking estrogen for 2 years. Physical Findings: A clinical breast exam by your physician is recommended on an annual basis and results should be correlated with mammographic findings. MG 3D Screening Mammo W/Cad Bilateral CC and MLO view(s) were taken. Prior study comparison: May 24, 2017, bilateral MG 3d screening mammo w/cad. April 06, 2016, bilateral MG 3d screening mammo w/cad. The breast tissue is heterogeneously dense. This may lower the sensitivity of mammography. There is no discrete abnormality. ASSESSMENT: Negative, BI-RAD 1 RECOMMENDATION: Routine screening mammogram of both breasts in 1 year.
== END | disposition home or self-care (01) ==
LOC: RADMAMWWP 10:43
PROVIDERS: ATTEND Family Medicine
DX: Z12.31 Encounter for screening mammogram for malignant neoplasm of breast (principal)
CPT/HCPCS: 77063; 77067

== ENCOUNTER → 2018-05-27 | Outpatient (CLI) | payer MEDICAID, MEDICARE ==
--- NOTE | 2018-05-27 14:45 | XR ---
EXAMINATION TYPE: XR abdomen 1V DATE OF EXAM: 05/27/2018 COMPARISON: 02/02/2017 INDICATION: Nausea vomiting TECHNIQUE: Single view abdomen supine view FINDINGS: There is a normal bowel gas pattern. Psoas margins are normal. No organomegaly is present. Fecal debris is within the left upper quadrant of the abdomen. No renal stones are evident. Postsurgical changes are through the thoracic and lumbar spine. Spacer i s present L1. IMPRESSION: 1. Nonspecific abdomen
== END ==
LOC: RADXRMAIN 13:56
PROVIDERS: ATTEND Family Medicine
DX: R11.2 Nausea with vomiting, unspecified (principal)
CPT/HCPCS: 74018

== ENCOUNTER 2018-06-24 09:54 | Day surgery (SDC) | payer MEDICAID, MEDICARE ==
[2018-06-22 15:50] VITALS: BMI 32.5
--- NOTE | 2018-06-24 07:50 | P.GSHP ---
History of Present Illness H&P Date: 06/24/18 CHIEF COMPLAINT: GERD HISTORY OF PRESENT ILLNESS: The patient is a 52-year-old female who presents reports gastroesophageal reflux disease. Upper endoscopy was offered for further evaluation and management. PAST MEDICAL HISTORY: Please see list. PAST SURGICAL HISTORY: Please see list. MEDICATIONS: Please see list. ALLERGIES: Please see list. SOCIAL HISTORY: No illicit drug use FAMILY HISTORY: No reports of Crohn disease or ulcerative colitis. REVIEW OF ORGAN SYSTEMS: CONSTITUTIONAL: No reports of fevers or chills. GI: Denies any blood in stools or constipation. PHYSICAL EXAM: VITAL SIGNS: Stable GENERAL: Well-developed and pleasant in no acute distress. HEENT: No scleral icterus. Extraocular movements grossly intact. Moist buccal mucosa. NECK: Supple without lymphadenopathy. CHEST: Unlabored respirations. Equal bilateral excursions. CARDIOVASCULAR: Regular rate and rhythm. Distal 2+ pulses. ABDOMEN: Soft, nondistended. MUSCULOSKELETAL: No clubbing, cyanosis, or edema. ASSESSMENT: 1. Gastroesophageal reflux disease PLAN: 1. Recommend proceeding with an upper endoscopy Past Medical History Past Medical History: Cancer, GERD/Reflux, Hyperlipidemia, Musculoskeletal Disorder, Thyroid Disorder Additional Past Medical History / Comment(s): HX OF SKIN CA, POST LAMINECTOMY SYNDROME. CHRONIC PAIN History of Any Multi-Drug Resistant Organisms: None Reported Past Surgical History: Back Surgery, Section, Hysterectomy Additional Past Surgical History / Comment(s): brain surgery (noncavernous malformation per pt), trial spinal cord stim done, LEFT ROTATOR CUFF, OPEN SPINAL CORD STIMULATOR TRIAL PLACEMENT, DECOMPRESSION THORACIC LAMINECTOMY T8-T9 , PAIN CLINIC PROCEDURE, 01/20/17 lumbar nerve block, PAIN PUMP INSERTION, EGD Past Anesthesia/Blood Transfusion Reactions: No Reported Reaction Smoking Status: Former smoker - Past Family History Father Family Medical History: Unable to Obtain Mother Family Medical History: No Reported History Medications and Allergies Home Medications Medication Instructions Recorded Confirmed Type Fenofibrate [Tricor] 160 mg PO DAILY 01/09/14 06/22/18 History Gabapentin [Neurontin] 800 mg PO TID 01/09/14 06/22/18 History Levothyroxine Sodium [Synthroid] 50 mcg PO DAILY 01/09/14 06/22/18 History Omeprazole [PriLOSEC] 20 mg PO AC-BID 01/09/14 06/22/18 History lamoTRIgine [LaMICtal] 100 mg PO BID 01/09/14 06/22/18 History Zzzquil 50 mg PO HS PRN 07/26/15 06/22/18 History HYDROmorphone HCL [Dilaudid] 4 mg PO QID 10/14/16 06/22/18 History Venlafaxine HCl [Effexor XR] 150 mg PO DAILY 02/02/17 06/22/18 History valACYclovir [Valtrex] 500 mg PO DAILY 02/02/17 06/22/18 History Mirabegron [Myrbetriq] 25 mg PO DAILY 06/22/18 06/22/18 History Morphine Pain Pump 06/22/18 History traZODone HCL 50 mg PO HS 06/22/18 06/22/18 History Allergies Allergy/AdvReac Type Severity Reaction Status Date / Time oxycodone AdvReac Nausea & Verified 06/24/18 10:30 Vomiting
[~2018-06-24 09:54] MED LIST changes: +LIDOCAINE 1% 20 ML VIAL (10MG/ML) FOR IV START INTRADERMA PRN
[2018-06-24 10:33] VITALS: TEMP 97.6
[2018-06-24] MEDS ORDERED: LIDOCAINE 1% INJ 10MG/ML (20 ML MDV) ONE (11:09)
[2018-06-24] MEDS ORDERED: PROPOFOL 10 MG/ML 20 ML VIAL IV ONE (11:09)
[2018-06-24 11:25] VITALS: PULSE 67
--- NOTE | 2018-06-24 11:26 | P.PCN ---
Date of Procedure: 06/24/18 Description of Procedure: PREOPERATIVE DIAGNOSIS: Gastroesophageal reflux disease. POSTOPERATIVE DIAGNOSIS: Gastritis. Gastroesophageal reflux disease. Diaphragmatic hiatal hernia OPERATION: Esophagogastroduodenoscopy with biopsies along antrum. SURGEON: Lulu Davis MD ANESTHESIA: MAC. INDICATIONS: The patient is a 52-year-old female who presents with a history of reflux disease. Benefits and risks of the procedure were described. Informed consent was obtained. DESCRIPTION: The patient was brought into the endoscopy suite and laid in the left lateral decubitus position. An Olympus gastroscope was passed along the posterior oropharynx down to the distal esophagus where the squamocolumnar junction was encountered at 40 cm from the incisors. The stomach was entered and no bile reflux was found. Additional findings are listed below. Biopsies with cold forceps were obtained of the antrum. The first through third portion of the duodenum was examined and unremarkable. Retroflexion of the scope confirmed Hill grade 2 lower esophageal valve. The squamocolumnar junction demonstrated LA grade A erosive esophagitis. The stomach was desufflated. The patient tolerated the procedure well. FINDINGS: Squamocolumnar junction 36 cm from the incisors. Diaphragmatic hiatus at 40 cm. Hiatal hernia, 4 cm Hill grade 2 lower esophageal valve. LA grade A erosive esophagitis. No active duodenitis. Chronic gastritis RECOMMENDATIONS: Upper endoscopy as needed. Plan - Discharge Summary New Discharge Prescriptions: No Action lamoTRIgine [LaMICtal] 100 mg PO BID Omeprazole [PriLOSEC] 20 mg PO AC-BID Levothyroxine Sodium [Synthroid] 50 mcg PO DAILY Gabapentin [Neurontin] 800 mg PO TID Fenofibrate [Tricor] 160 mg PO DAILY Zzzquil 50 mg PO HS PRN PRN Reason: Insomnia HYDROmorphone HCL [Dilaudid] 4 mg PO QID valACYclovir [Valtrex] 500 mg PO DAILY Venlafaxine HCl [Effexor XR] 150 mg PO DAILY traZODone HCL 50 mg PO HS Mirabegron [Myrbetriq] 25 mg PO DAILY Morphine Pain Pump Discharge Medication List Fenofibrate [Tricor] 160 mg PO DAILY 01/09/14 [History] Gabapentin [Neurontin] 800 mg PO TID 01/09/14 [History] Levothyroxine Sodium [Synthroid] 50 mcg PO DAILY 01/09/14 [History] Omeprazole [PriLOSEC] 20 mg PO AC-BID 01/09/14 [History] lamoTRIgine [LaMICtal] 100 mg PO BID 01/09/14 [History] Zzzquil 50 mg PO HS PRN 07/26/15 [History] HYDROmorphone HCL [Dilaudid] 4 mg PO QID 10/14/16 [History] Venlafaxine HCl [Effexor XR] 150 mg PO DAILY 02/02/17 [History] valACYclovir [Valtrex] 500 mg PO DAILY 02/02/17 [History] Mirabegron [Myrbetriq] 25 mg PO DAILY 06/22/18 [History] Morphine Pain Pump 06/22/18 [History] traZODone HCL 50 mg PO HS 06/22/18 [History]
[2018-06-24 11:38] VITALS: BP 100/50; RESP 16
== END 2018-06-24 11:51 | disposition home or self-care (01) ==
LOC: ORWHC2ENDO 09:54
PROVIDERS: ATTEND Surgery Plastic and Reconstructive Surgery
DX: K22.10 Ulcer of esophagus without bleeding (principal); K29.50 Unspecified chronic gastritis without bleeding; K44.9 Diaphragmatic hernia without obstruction or gangrene; K21.9 Gastro-esophageal reflux disease without esophagitis; E07.9 Disorder of thyroid, unspecified; E78.5 Hyperlipidemia, unspecified; M96.1 Postlaminectomy syndrome, not elsewhere classified; Z87.891 Personal history of nicotine dependence; Z79.891 Long term (current) use of opiate analgesic; Z79.899 Other long term (current) drug therapy; Z79.890 Hormone replacement therapy; Z97.8 Presence of other specified devices; Z88.5 Allergy status to narcotic agent; G47.00 Insomnia, unspecified
CPT/HCPCS: 88305; 43239; J2001; J2704

== ENCOUNTER → 2018-07-19 | Outpatient (CLI) | payer MEDICAID, MEDICARE ==
--- NOTE | 2018-07-19 21:40 | CT ---
EXAMINATION TYPE: CT abdomen pelvis w con DATE OF EXAM: 07/19/2018 HISTORY: Epigastric abdominal pain and dysphagia. Diverticulitis per order. CT DLP: 1253.6mGycm Automated Exposure Control for Dose Reduction was Utilized. CONTRAST: CT scan of the abdomen and pelvis is performed with oral and with IV Contrast, patient injected with 100ml mL of Isovue 300. COMPARISON: None FINDINGS: LUNG BASES: Focal linear scarring or atelectasis in the lingula axial image 1 is noted.. LIVER/GB: Cholecystectomy clips are present. PANCREAS: No significant abnormality is seen. SPLEEN: No significant abnormality is seen. ADRENALS: No significant abnormality is seen. KIDNEYS: No significant abnormality is seen. BOWEL: Oral contrast does not reach colonic level. There is no suspicious small or large bowel dilata tion. No significant diverticulosis or acute diverticulitis is present. UTERUS/ADNEXA: Uterus is surgically absent or atrophic in appearance. Pessary type device in the remn ant vaginal canal is noted. LYMPH NODES: No greater than 1cm abdominal or pelvic lymph nodes are appreciated. OSSEOUS STRUCTURES: Extensive postsurgical change to the spine is present. Posterior fusion hardware from T10 through the S1 levels. Metallic cage centered at T12-L2 levels is present. Metallic disc mat erial at L2-L3, L3-L4, and L4-L5 levels is identified. Slight posterior positioning of L4-L5 metallic disc into anterior spinal canal is noted sagittal image 62. Spine is straightened on sagittal images . OTHER: No significant additional abnormality is seen. IMPRESSION: No bowel obstruction. No CT evidence for diverticulosis or acute diverticulitis.
== END | disposition home or self-care (01) ==
LOC: RADCTMAIN 15:49
PROVIDERS: ATTEND Surgery Plastic and Reconstructive Surgery
DX: K57.92 Diverticulitis of intestine, part unspecified, without perforation or abscess without bleeding (principal); Z88.5 Allergy status to narcotic agent
CPT/HCPCS: 74177; Q9967

== ENCOUNTER → 2018-11-21 | Outpatient (CLI) | payer MEDICARE ==
[2018-11-21 16:31] LABS: Basophils # (A) 0.1 k/uL (0-0.2); Basophils % (A) 1 %; Eosinophils # (A) 0.1 k/uL (0-0.7); Eosinophils % (A) 2 %; HCT 39.3 % (34.0-46.0); Lymphocytes # (A) 2.5 k/uL (1.0-4.8); Lymphocytes % (A) 37 %; MCHC 33.1 g/dL (31.0-37.0); MCV 87.6 fL (80.0-100.0); Mean Platelet Volume 7.4; Monocytes # (A) 0.4 k/uL (0-1.0); Monocytes % (A) 6 %; Neutrophils # (A) 3.6 k/uL (1.3-7.7); Neutrophils % (A) 52 %; Platelet Count 389 k/uL (150-450); RBC 4.48 m/uL (3.80-5.40); RDW 13.1 % (11.5-15.5); WBC 6.9 k/uL (3.8-10.6)
[2018-11-21 17:16] LABS: Appearance,BF Cloudy; Color,BF Red; Nucleated Cells, Body Fluid 280 /uL; RBC, Body Fluid 39800 /uL
[2018-11-21 18:31] LABS: Mononuclear WBC,Body Fluid 82 %; Polynuclear WBC,Body Fluid 18 %; Total Cells Counted,Body Fluid 100
[2018-11-21 20:53] LABS: Erythrocyte Sedimentation Rate 8 mm/hr (0-20)
[2018-11-22 00:31] LABS: Cyclic Citrullinated Pep IgG NEGATIVE (NEGATIVE)
[2018-11-22 01:49] LABS: Anion Gap 9.8 mmol/L (4.00-12.00); C Reactive Protein 0.6 mg/dL (0.0-0.8); Calcium 10.2 mg/dL (8.7-10.3); Carbon Dioxide 27.2 mmol/L (21.6-31.8); Uric Acid 5.2 mg/dL (2.9-7.7)
[2018-11-22 01:56] LABS: T4, Free (Free Thyroxine) 1.2 ng/dL (0.80-1.80)
[2018-11-22 02:08] LABS: Rheumatoid Factor 5 IU/mL (0-15)
[2018-11-23 09:33] LABS: Angiotensin-1 Converting Enz. 22 U/L (8-52)
[2018-11-23 12:18] LABS: HLA B27 NEGATIVE
== END | disposition home or self-care (01) ==
LOC: LABWHC1 15:49
PROVIDERS: ATTEND Orthopaedic Surgery
DX: E03.8 Other specified hypothyroidism (principal); M17.0 Bilateral primary osteoarthritis of knee; Z85.9 Personal history of malignant neoplasm, unspecified
CPT/HCPCS: 36415; 80048; 82164; 82550; 84439; 84443; 84450; 84460; 84550; 85025; 85652; 86038; 86140; 86200; 86431; 86812; 87070; 87075; 87205; 89050; 89060

== ENCOUNTER → 2019-06-09 | Outpatient (CLI) | payer MEDICARE ==
[2019-06-09 13:37] LABS: Amorphous Sediment,Urine Occasional /hpf; Appearance,Urine Turbid (Clear); Bilirubin,Urine Negative (Negative); Blood,Urine Negative (Negative); Color,Urine Yellow; Glucose,Urine (UA) Negative (Negative); Ketones,Urine Negative (Negative); Leukocyte Esterase,Urine Negative (Negative); Nitrite,Urine Negative (Negative); Protein,Urine Negative (Negative); Specific Gravity,Urine 1.019 (1.001-1.035); Squamous Epithelial Cell,Urine 1 /hpf (0-4); Urobilinogen,Urine <2.0 mg/dL (<2.0)
[2019-06-09 13:40] LABS: HCT 39.8 % (34.0-46.0); HGB 13.5 gm/dL (11.4-16.0); MCV 88.3 fL (80.0-100.0); Mean Platelet Volume 6.9; Platelet Count 375 k/uL (150-450); RBC 4.51 m/uL (3.80-5.40); RDW 12.7 % (11.5-15.5); WBC 6.1 k/uL (3.8-10.6)
[2019-06-09 13:42] LABS: INR 0.9 (<1.2); Partial Thromboplastin Time 23.6 sec (22.0-30.0); Prothrombin Time 10.2 sec (9.0-12.0)
[2019-06-09 13:48] LABS: Albumin 4.5 g/dL (3.5-5.0); Calcium 10.2 mg/dL (8.4-10.2); Potassium 4.8 mmol/L (3.5-5.1); Total Bilirubin 0.3 mg/dL (0.2-1.3); Total Protein 7.7 g/dL (6.3-8.2)
== END | disposition home or self-care (01) ==
LOC: LABPAT 12:08
PROVIDERS: ATTEND Orthopaedic Surgery
DX: Z01.818 Encounter for other preprocedural examination (principal); Z01.812 Encounter for preprocedural laboratory examination; M17.12 Unilateral primary osteoarthritis, left knee
CPT/HCPCS: 36415; 80053; 81001; 85027; 85610; 85730; 87070; 93005

== ENCOUNTER 2019-06-19 09:06 | Day surgery (SDC) | payer MEDICARE ==
[~2019-06-19 09:06] MED LIST changes: +ACETAMINOPHEN TAB 500 MG TAB PO ONE; +MELOXICAM 7.5 MG TAB PO ONE; +MIDAZOLAM 2 MG/2 ML VIAL IV PRN; +ONDANSETRON 4 MG/2 ML VIAL IVP ONE; +TRANEXAMIC ACID 1,000 MG in SODIUM CHLORIDE 0.9% 100 ML IVPB ONE; +fentaNYL (PF) 50 MCG/ML 2 ML AMP IV PRN
[2019-06-19] MEDS ORDERED: ROPIVACAINE 246.25 MG, EPINEPHrine 0.5 MG, KETOROLAC 30 MG, cloNIDine HCL/PF 80 MCG, WA... MISCELLANE ONE ×5 (09:54)
[2019-06-19] MEDS ORDERED: MIDAZOLAM PF (FBP) 2 MG/2 ML VIAL IV ONE (10:09)
[2019-06-19] MEDS ORDERED: fentaNYL (PF) 50 MCG/ML 2 ML AMP ONE (10:26)
[2019-06-19] MEDS ORDERED: PROPOFOL 10 MG/ML 20 ML VIAL IV ONE (10:26)
[2019-06-19] MEDS ORDERED: NEOSTIGMINE 1 MG/ML 10 ML VIAL ONE (10:26)
[2019-06-19] MEDS ORDERED: TRANEXAMIC ACID 1,000 MG/10 ML VIAL ONE (10:26)
[2019-06-19] MEDS ORDERED: ROCURONIUM BROMIDE 10 MG/ML 10 ML VIAL IV ONE (10:26)
[2019-06-19] MEDS ORDERED: GLYCOPYRROLATE 0.2 MG/ML 2 ML VIAL ONE (10:26)
[2019-06-19] MEDS ORDERED: SUCCINYLCHOLINE CHLORIDE 100 MG/5 ML SYR IV ONE (10:26)
[2019-06-19] MEDS ORDERED: SODIUM CHLORIDE 0.9% 100 ML BAG ONE (10:26)
[2019-06-19] MEDS ORDERED: MIDAZOLAM 2 MG/2 ML VIAL ONE (10:26)
[2019-06-19] MEDS ORDERED: LABETALOL 5 MG/ML VIAL MDV ONE (10:26)
[2019-06-19] MEDS ORDERED: LIDOCAINE 1% INJ 10MG/ML (20 ML MDV) ONE (10:26)
[2019-06-19] MEDS ORDERED: HYDROmorphone (PF) 1 MG/ML ONE (10:26)
[2019-06-19] MEDS: ROPIVACAINE 246.25 MG, EPINEPHrine 0.5 MG, KETOROLAC 30 MG, cloNIDine HCL/PF 80 MCG, WA... MISCELLANE ONE ×10 (10:57→11:28)
--- NOTE | 2019-06-19 12:16 | P.OP ---
Date of Procedure: 06/19/19 Procedure(s) Performed: PREOPERATIVE DIAGNOSIS: Left knee severe osteoarthritis with genu varum POSTOPERATIVE DIAGNOSIS: Left knee severe osteoarthritis with genu varum OPERATION: Left knee cemented total replacement arthroplasty. ANESTHESIA: Spinal ESTIMATED BLOOD LOSS: 100 ml. FRENCH PASTRY COOK: Pricila Hunter PA-C (assistance with: patient positioning, retraction, exposure, hemostasis, leg positioning, implantation, irrigation, closure, dressing) COMPLICATIONS: None apparent. COMPONENTS IMPLANTED: Journey II total knee system from [employer] and [employer] INDICATIONS: Riya is a 53 year old female with a history of left knee osteoarthritis. The patient's knee is end-stage, and conservative management has failed. The operation of knee replacement has been discussed at length in the office, as well as potential risks and complications. These are inclusive of, but not limited to: bleeding, infection, scarring, discomfort, blood vessel and nerve damage, need for further surgery, failure to relieve symptoms, persistence, recurrence, or worsening of problems, loosening, dislocation, wear, blood clot, pulmonary embolism, , gait dysfunction, stiffness, and other risks as discussed in the office. The patient elects to proceed and the consent form has been signed. PROCEDURE: The patient was taken to the operating room and positioned on the operating room table in the supine position. Anesthesia was initiated. Care was taken to make sure that all pressure points were adequately padded. The operative lower extremity was prepped and draped in the usual aseptic fashion using ChloraPrep. Ioban drape was used for the case and the patient received intravenous antibiotics within one hour of the incision. A pneumotourniquet and leg menendez were used for the case. The limb was exsanguinated with an Esmarch bandage and the tourniquet was inflated to 350 mmHg. Time-out was called c onfirming the patient's identity, side, procedure and administration of antibiotics and tranexamic acid. The incision was then created midline directly over the left knee, carried down through skin and into the subcutaneous tissues and down to fascia. Full thickness subcutaneous medial flap was developed. Medial parapatellar arthrotomy was performed and the interior of the knee was inspected. There was end-stage osteoarthritis of the knee with a mild to moderate genu varum type deformity. The fat pad was excised and proximal medial release on the tibia was completed using meticulous dissection and a curved osteotome. The anterior cruciate ligament was taken down. Note was made of significant attrition of the anterior and significant degenerative appearance of the cruciate ligaments. The exposure was excellent. The knee was flexed 90 degrees and the patella was everted. A spot was chosen on the femur approximately 1 cm anterior to the posterior cruciate ligament insertion and an intramedullary hole was created within the femur. The intramedullary guide was set to 5 degrees of valgus. The distal cutting block was attached and pinned into position. An appropriate amount of distal femoral resection was set. The oscillating saw was then used to make the distal femoral cut. This cut was confirmed to be flat with the flat end of an osteotome. The retractors were placed around the tibia and the tibial surface was addressed. The angle and depth of resection was adjusted using an extramedullary cutting guide. The guide had a built-in 3 degree posterior slope cut. Once the cutting guide was adjusted appropriately and in line with the axis of the tibia and confirmed to be in good position in relation to the second metatarsal and transmalleolar axis, the tibial cut was then created with protection of the posterior neurovascular structures and the collateral ligaments. The tibial cut surface was removed and sized. Femoral sizing was then accomplished using posterior referencing. Care was taken to analyze the posterior condyles for signs of deficiency or severe wear, and adjustments to the guide were made, as appropriate. 3 degree external rotation pins were placed. The cutting jig for the femur was applied to these pins. The planned cuts were further analyzed prior to performing them with the oscillating saw. No femoral notching was produced. Bone fragments were removed and the cut surfaces were finished, as necessary, with a reciprocating saw. Spacer block technique was then used to confirm that the flexion and extension gaps were equal. Soft tissue releases and adjustment of the tibial and/or femoral cuts were made, as necessary, until the gaps were equal. This included release of the posterior cruciate ligament, which was excessively tight in this patient. The femur was then further finished for a posterior cruciate ligament substituting component. Patellar resurfacing was performed using a reamer. The size of the required patellar component was estimated and the patellar surface was then reamed down to a residual thickness which would recreate the washoe thickness with the component. The exact placement of the patellar component was adjusted for position based on preoperative x-rays and intraoperative findings. Prior to placing trial components, anesthetic solution consisting of ropivicaine with epinephrine, ketorolac, and clonidine was injected carefully and methodically in a grid pattern using aspiration technique into the soft tissue around the knee circumferentially, starting with the deeper tissues first and progressing to fascia, and then finally the skin/subcutaneous tissue. Particular care was taken when injecting the posterior capsule. The trial components were inserted. The tibial tray was allowed to self center and the patella was noted to track very well. The position of the tibial component was marked and the tibia was then finished for a stemmed tibial component. Cement was mixed on the back table and applied to the final components. Trial components were removed and the cut surfaces of the bone were pulse lavaged thoroughly and dried. Cement was then applied to the tibial surface and pressurized into the surface using finger pressurization technique. The tibial component was then applied and excess cement was removed after it was impacted securely and noted to be flush with the cut surface. In similar fashion, the cement was applied to the cut femoral surface, pressurized in using finger pressurization and the component was impacted into place. Excess cement was removed. The polyethylene spacer was then implanted and locked into position. The patellar component was then applied in similar technique and a patellar clamp was used to hold the patella in place as the cement hardened. Once the cement had fully hardened, the knee was reinspected. Any other cement extrusion was removed and final kinematic testing showed range of motion from 0 to 130 degrees with excellent stability, both medially and laterally and appropriate alignment of the leg. Patellar tracking was excellent. The knee was then thoroughly pulse lavaged with normal saline. The tourniquet was deflated and hemostasis was obtained with electrocautery and IV tranexamic acid, 1 g given at the start of the operation and 1 g at the start of closure. Closure was with #2 Ethibond in the fascia/capsule and supplemented with #2 Quill, 2-0 Vicryl suture was used for the subcutaneous tissues and 3-0 Quill for the skin. Dermabond/Steri-Strips were then applied. A lightly compressive dressing was applied using Webril and an Mehul wrap. The patient was then transferred to stretcher and taken to the recovery room in stable condition. Sponge and needle counts were correct.
[2019-06-19] MEDS ORDERED: BISACODYL 10 MG SUPP RECTAL PRN (12:40)
[2019-06-19] MEDS ORDERED: NA PHOS,M-B/NA PHOS,DI-BA 133 ML ENEMA RECTAL PRN (12:40)
[2019-06-19] MEDS ORDERED: HYDROmorphone 1 MG/ML 1 ML SYRINGE IVP PRN (12:40)
[2019-06-19] MEDS ORDERED: NALOXONE 0.4 MG/ML 1 ML VIAL IV PRN (12:40)
[2019-06-19] MEDS ORDERED: HYDROcodone/APAP 7.5-325MG 1 EACH TAB PO PRN (12:40)
[2019-06-19] MEDS ORDERED: HYDROmorphone 0.5 MG/0.5 ML SYRINGE IVP PRN ×2 (12:40)
[2019-06-19] MEDS ORDERED: ONDANSETRON 4 MG/2 ML VIAL IVP PRN (12:40)
[2019-06-19] MEDS ORDERED: MAGNESIUM HYDROXIDE 2,400 MG/10 ML CUP PO PRN (12:40)
[2019-06-19] MEDS ORDERED: LACTATED RINGERS 1,000 ML IV SCH (12:45)
[2019-06-19] MEDS ORDERED: ROPIVACAINE 0.2%-NS ON-Q PUMP 1,090 MG, EMPTY PAIN BALL 1 EACH MISCELLANE PRN (12:57)
[2019-06-19] MEDS ORDERED: HYDROmorphone 1 MG/ML 1 ML SYRINGE IVP ONE ×2 (13:28→13:38)
--- NOTE | 2019-06-19 13:33 | XR ---
EXAMINATION TYPE: XR knee limited LT DATE OF EXAM: 06/19/2019 CLINICAL HISTORY: Left knee pain and arthritis status post total knee replacement. TECHNIQUE: Portable AP and crosstable lateral views of the left knee are obtained immediately postop eratively. COMPARISON: None FINDINGS: Metallic hardware from total left knee arthroplasty is seen and appears satisfactory in al ignment and position. There is evidence of recent surgery with diffuse subcutaneous gas and soft tis mariaelena swelling noted. IMPRESSION: METALLIC HARDWARE FROM TOTAL LEFT KNEE ARTHROPLASTY IS SATISFACTORY IN ALIGNMENT.
[2019-06-19] MEDS ORDERED: MEPERIDINE 50 MG/ML SYRINGE IVP ONE (13:56)
[2019-06-19 15:45] VITALS: BMI 33.2
[2019-06-19] MEDS ORDERED: HYDROcodone/APAP 5-325MG 1 EACH TAB PO PRN (15:51)
[2019-06-19 17:09] VITALS: TEMP 98.6
[2019-06-19 17:16] VITALS: BP 118/66; PULSE 83
[2019-06-19 17:52] VITALS: RESP 18
[2019-06-19] MEDS ORDERED: SENNOSIDES-DOCUSATE SODIUM 1 EACH TAB PO SCH (21:00)
[2019-06-19] MEDS ORDERED: ASPIRIN 325 MG TAB PO SCH (21:00)
[2019-06-19] MEDS ORDERED: lamoTRIgine 100 MG TAB PO SCH (21:00)
[2019-06-19] MEDS ORDERED: TEMAZEPAM 15 MG CAP PO PRN (22:00)
[2019-06-19] MEDS ORDERED: DULoxetine HCL 30 MG CAPSULE.DR PO SCH (22:00)
[2019-06-19] MEDS ORDERED: GABAPENTIN 400 MG CAP PO SCH (22:00)
[2019-06-20] MEDS ORDERED: LEVOTHYROXINE 50 MCG TAB PO SCH (06:30)
[2019-06-20] MEDS ORDERED: FENOFIBRATE 160 MG TAB PO SCH (09:00)
[2019-06-20] MEDS ORDERED: MELOXICAM 7.5 MG TAB PO SCH (09:00)
[2019-06-20] MEDS ORDERED: Progesterone, Micronized [Progesterone] 200 MG PO SCH (09:00)
--- NOTE | 2019-06-20 11:21 | P.ANPRN ---
Procedure Note - Anesthesia - Nerve Block Performed Left Adductor Canal Infusion Time Out Performed: Yes Date of Procedure: 06/20/19 Procedure Start Time: 10:10 Procedure Stop Time: : Location of Patient Procedure: PreOp Indication: Acute Post-Operative Pain, Requested by Surgeon Sedation Type: Sedate with meaningful contact maintained Preparation: Sterile Prep, Sterile Dressing Position: Supine Catheter: Indwelling Needle Types: Pajunk Needle Gauge: 21 Ultrasound used to visualize needle placement: Yes Ultrasound used to observe medication spread: Yes Blood Aspirated: No Pain Paresthesia on Injection Noted: No Resistance on Injection: Normal Image Stored and Saved: Yes Events: Uneventful and Well Tolerated
== END 2019-06-19 19:13 | disposition home health service (06) ==
LOC: OR 09:06 → 4SSUR 12:39 → OR 19:13
PROVIDERS: ATTEND Orthopaedic Surgery
DX: M17.12 Unilateral primary osteoarthritis, left knee (principal); M21.162 Varus deformity, not elsewhere classified, left knee; I10 Essential (primary) hypertension; E78.5 Hyperlipidemia, unspecified; E03.9 Hypothyroidism, unspecified; K21.9 Gastro-esophageal reflux disease without esophagitis; F41.1 Generalized anxiety disorder; F31.9 Bipolar disorder, unspecified; N17.9 Acute kidney failure, unspecified; G47.00 Insomnia, unspecified; M96.1 Postlaminectomy syndrome, not elsewhere classified; Z85.828 Personal history of other malignant neoplasm of skin; Z97.8 Presence of other specified devices; Z98.1 Arthrodesis status; Z98.891 History of uterine scar from previous surgery; Z98.890 Other specified postprocedural states; Z87.891 Personal history of nicotine dependence; Z79.890 Hormone replacement therapy; Z79.899 Other long term (current) drug therapy; Z90.710 Acquired absence of both cervix and uterus; Z98.51 Tubal ligation status; Z88.5 Allergy status to narcotic agent; Z80.3 Family history of malignant neoplasm of breast
CPT/HCPCS: 64448; 76942; 86900; 86901; 86850; 88300; 73560; 27447; C1713; C1776; J0171; J2175; J0690; J2405; J1885; J1170; J2795 ×2; J0735; J2250

== ENCOUNTER → 2019-09-01 | Outpatient (CLI) | payer MEDICARE ==
--- NOTE | 2019-09-04 10:33 | MM ---
Reason for exam: screening (asymptomatic). Last mammogram was performed 1 year and 3 months ago. History: Patient is postmenopausal and has history of other cancer at age 35. Family history of breast cancer in aunt at age 40, breast cancer in aunt, and breast cancer in grandmother at age 40. Took estrogen for 2 years. Physical Findings: A clinical breast exam by your physician is recommended on an annual basis and results should be correlated with mammographic findings. MG Screening Mammo w CAD Bilateral CC and MLO view(s) were taken. Prior study comparison: May 25, 2018, bilateral MG 3d screening mammo w/cad. May 24, 2017, bilateral MG 3d screening mammo w/cad. There are scattered fibroglandular densities. There is no discrete abnormality. No significant changes when compared with prior studies. ASSESSMENT: Negative, BI-RAD 1 RECOMMENDATION: Routine screening mammogram of both breasts in 1 year.
== END | disposition home or self-care (01) ==
LOC: RADMAMWWP 11:20
PROVIDERS: ATTEND Family Medicine
DX: Z12.31 Encounter for screening mammogram for malignant neoplasm of breast (principal)
CPT/HCPCS: 77067

== ENCOUNTER → 2020-02-09 | Outpatient (CLI) | payer MEDICARE ==
[2020-02-09 14:51] LABS: Basophils % (A) 1 %; Eosinophils # (A) 0.1 k/uL (0-0.7); Eosinophils % (A) 2 %; HCT 39.2 % (34.0-46.0); HGB 12.6 gm/dL (11.4-16.0); Lymphocytes # (A) 2.1 k/uL (1.0-4.8); Lymphocytes % (A) 37 %; MCH 29.5 pg (25.0-35.0); MCHC 32.2 g/dL (31.0-37.0); MCV 91.6 fL (80.0-100.0); Mean Platelet Volume 7.9; Monocytes # (A) 0.3 k/uL (0-1.0); Monocytes % (A) 5 %; Neutrophils # (A) 3.1 k/uL (1.3-7.7); Neutrophils % (A) 53 %; Platelet Count 368 k/uL (150-450); RBC 4.27 m/uL (3.80-5.40); RDW 12.6 % (11.5-15.5); WBC 5.8 k/uL (3.8-10.6)
[2020-02-09 14:55] LABS: Partial Thromboplastin Time 23.2 sec (22.0-30.0); Prothrombin Time 10.4 sec (9.0-12.0)
[2020-02-09 14:56] LABS: ALT 18 U/L (4-34); AST 28 U/L (14-36); African American GFR (CKD) >90 (>60 ml/min/1.73 sqM); Albumin 4.5 g/dL (3.5-5.0); Alkaline Phosphatase 51 U/L (38-126); Anion Gap 7 mmol/L; Blood Urea Nitrogen 13 mg/dL (7-17); Calcium 10.2 mg/dL (8.4-10.2); Carbon Dioxide 34 mmol/L (22-30); Chloride 100 mmol/L (98-107); Glucose 139 mg/dL (74-99); Non-African American GFR(CKD) 85 (>60 ml/min/1.73 sqM); Potassium 4.9 mmol/L (3.5-5.1); Sodium 141 mmol/L (137-145); Total Bilirubin 0.3 mg/dL (0.2-1.3); Total Protein 7.6 g/dL (6.3-8.2)
[2020-02-09 15:29] LABS: Appearance,Urine Cloudy (Clear); Bilirubin,Urine Negative (Negative); Blood,Urine Negative (Negative); Calcium Oxalate Crystals,Urine Many /hpf; Color,Urine Yellow; Glucose,Urine (UA) Negative (Negative); Hyaline Casts,Urine 3 /lpf (0-2); Ketones,Urine Trace (Negative); Leukocyte Esterase,Urine Trace (Negative); Mucus,Urine Moderate /hpf; Nitrite,Urine Negative (Negative); PH, Urine 5.5 (5.0-8.0); Protein,Urine Trace (Negative); Specific Gravity,Urine 1.031 (1.001-1.035); Squamous Epithelial Cell,Urine <1 /hpf (0-4); Urobilinogen,Urine <2.0 mg/dL (<2.0); WBC,Urine 4 /hpf (0-5)
== END | disposition home or self-care (01) ==
LOC: LABPAT 13:52
PROVIDERS: ATTEND Orthopaedic Surgery
DX: Z01.818 Encounter for other preprocedural examination (principal); Z01.812 Encounter for preprocedural laboratory examination
CPT/HCPCS: 80053; 85025; 85610; 85730; 81001; 87070; 36415; U0003

== ENCOUNTER 2020-02-12 05:57 | Day surgery (SDC) | payer MEDICARE ==
[2020-02-08 11:28] VITALS: BMI 34.0
[~2020-02-12 05:57] MED LIST changes: +GABAPENTIN 300 MG CAP PO ONE; -LACTATED RINGERS 1,000 ML IV SCH; -LIDOCAINE 1% 20 ML VIAL (10MG/ML) FOR IV START INTRADERMA PRN; -MIDAZOLAM 2 MG/2 ML VIAL IV PRN; -fentaNYL (PF) 50 MCG/ML 2 ML AMP IV PRN
[2020-02-12] MEDS ORDERED: HYDROmorphone 0.5 MG/0.5 ML SYRINGE IVP PRN ×3 (06:09→10:04)
[2020-02-12] MEDS ORDERED: ONDANSETRON 4 MG/2 ML VIAL IVP ONE (06:09)
[2020-02-12] MEDS ORDERED: LACTATED RINGERS 1,000 ML IV SCH ×2 (06:09→10:15)
[2020-02-12] MEDS ORDERED: DEXAMETHASONE SOD PHOSPHATE 10 MG/ML 1 ML VIAL IV ONE (06:09)
[2020-02-12] MEDS ORDERED: MIDAZOLAM 2 MG/2 ML VIAL IV PRN (06:09)
[2020-02-12] MEDS ORDERED: MIDAZOLAM 2 MG/2 ML VIAL IV ONE (07:01)
[2020-02-12] MEDS ORDERED: fentaNYL (PF) 50 MCG/ML 2 ML AMP IV ONE (07:01)
--- NOTE | 2020-02-12 07:20 | P.ANPRN ---
Procedure Note - Anesthesia - Nerve Block Performed Right Adductor Canal Infusion Time Out Performed: Yes Date of Procedure: 02/12/20 Procedure Start Time: 07:00 Procedure Stop Time: 07:09 Location of Patient: PreOp Indication: Requested by Surgeon Specifically requested for management of pain by DrRoney: Tonio Hubbard Sedation Type: Sedate with meaningful contact maintained Preparation: Sterile Prep, Sterile Dressing Position: Supine Needle Types: Pajunk Needle Gauge: 21 Ultrasound used to visualize needle placement: Yes Ultrasound used to observe medication spread: Yes Injectate: 0.5% Ropivacaine (see comment for volume) (20 ml) Blood Aspirated: No Pain Paresthesia on Injection Noted: No Resistance on Injection: Normal Image Stored and Saved: Yes Events: Uneventful and Well Tolerated
[2020-02-12] MEDS ORDERED: .MORPHINE SULFATE (INJ) 10 MG/ML SYRINGE ONE (07:37)
[2020-02-12] MEDS ORDERED: LIDOCAINE 1% INJ 10MG/ML (20 ML MDV) ONE (07:37)
[2020-02-12] MEDS ORDERED: ROCURONIUM BROMIDE 10 MG/ML 5 ML VIAL IV ONE (07:37)
[2020-02-12] MEDS ORDERED: SUCCINYLCHOLINE CHLORIDE 100 MG/5 ML SYR IV ONE (07:37)
[2020-02-12] MEDS ORDERED: NEOSTIGMINE 1 MG/ML 10 ML VIAL ONE (07:37)
[2020-02-12] MEDS ORDERED: TRANEXAMIC ACID 1,000 MG/10 ML VIAL ONE (07:37)
[2020-02-12] MEDS ORDERED: PROPOFOL 10 MG/ML 20 ML VIAL IV ONE (07:37)
[2020-02-12] MEDS ORDERED: fentaNYL (PF) 50 MCG/ML 2 ML AMP ONE (07:37)
[2020-02-12] MEDS ORDERED: GLYCOPYRROLATE 0.2 MG/ML 2 ML VIAL ONE (07:37)
[2020-02-12] MEDS ORDERED: SODIUM CHLORIDE 0.9% 100 ML BAG ONE (07:37)
[2020-02-12] MEDS ORDERED: ceFAZolin 3,000 MG in SODIUM CHLORIDE 0.9% IRRIGATIO 3,000 ML IRRIGATION ONE (07:41)
[2020-02-12] MEDS: ROPIVACAINE 246.25 MG, EPINEPHrine 0.5 MG, KETOROLAC 30 MG, cloNIDine HCL/PF 80 MCG, WA... MISCELLANE ONE ×10 (07:58→08:31)
[2020-02-12] MEDS ORDERED: LACTATED RINGERS 1,000 ML IV ONE (08:15)
[2020-02-12] MEDS ORDERED: ROPIVACAINE 0.2%-NS ON-Q PUMP 1,090 MG, EMPTY PAIN BALL 1 EACH MISCELLANE PRN (08:15)
--- NOTE | 2020-02-12 09:18 | P.OP ---
Date of Procedure: 02/12/20 Procedure(s) Performed: PREOPERATIVE DIAGNOSIS: Right knee severe osteoarthritis with genu varum POSTOPERATIVE DIAGNOSIS: Right knee severe osteoarthritis with genu varum OPERATION: Right knee cemented total replacement arthroplasty. ANESTHESIA: Spinal ESTIMATED BLOOD LOSS: 100 ml. [facility] NURSE PRACTITIONER: Pricila Hunter PA-C (assistance with: patient positioning, retraction, exposure, hemostasis, leg positioning, implantation, irrigation, closure, dressing) COMPLICATIONS: None apparent. COMPONENTS IMPLANTED: Journey II total knee system from [employer] and [employer] INDICATIONS: Mrs. Juárez is a 54 year old female with a history of right knee osteoarthritis. The patient's knee is end-stage, and conservative management has failed. The operation of knee replacement has been discussed at length in the office, as well as potential risks and complications. These are inclusive of, but not limited to: bleeding, infection, scarring, discomfort, blood vessel and nerve damage, need for further surgery, failure to relieve symptoms, persistence, recurrence, or worsening of problems, loosening, dislocation, wear, blood clot, pulmonary embolism, , gait dysfunction, stiffness, and other risks as discussed in the office. The patient elects to proceed and the consent form has been signed. PROCEDURE: The patient was taken to the operating room and positioned on the operating room table in the supine position. Anesthesia was initiated. Care was taken to make sure that all pressure points were adequately padded. The operative lower extremity was prepped and draped in the usual aseptic fashion using ChloraPrep. Ioban drape was used for the case and the patient received intravenous antibiotics within one hour of the incision. A pneumotourniquet and leg menendez were used for the case. The limb was exsanguinated with an Esmarch bandage and the tourniquet was inflated to 350 mmHg. Time-out was called confirming the patient's identity, side, procedure and administration of antibiotics and tranexamic acid. The incision was then created midline directly over the knee, carried down through skin and into the subcutaneous tissues and down to fascia. Full thickness subcutaneous medial flap was developed. Medial parapatellar arthrotomy was performed and the interior of the knee was inspected. There was end-stage osteoarthritis of the knee with a mild to moderate genu varum type deformity. The fat pad was excised and proximal medial release on the tibia was completed using meticulous dissection and a curved osteotome. The anterior cruciate ligament was taken down. Note was made of significant attrition of the anterior and significant degenerative appearance of the cruciate ligaments. The exposure was excellent. The knee was flexed 90 degrees and the patella was everted. A spot was chosen on the femur approximately 1 cm anterior to the posterior cruciate ligament insertion and an intramedullary hole was created within the femur. The intramedullary guide was set to 5 degrees of valgus. The distal cutting block was attached and pinned into position. An appropriate amount of distal femoral resection was set. The oscillating saw was then used to make the distal femoral cut. This cut was confirmed to be flat with the flat end of an osteotome. The retractors were placed around the tibia and the tibial surface was addressed. The angle and depth of resection was adjusted using an extramedullary cutting guide. The guide had a built-in 3 degree posterior slope cut. Once the cutting guide was adjusted appropriately and in line with the axis of the tibia and confirmed to be in good position in relation to the second metatarsal and transmalleolar axis, the tibial cut was then created with protection of the posterior neurovascular structures and the collateral ligaments. The tibial cut surface was removed and sized. Femoral sizing was then accomplished using posterior referencing. Care was taken to analyze the posterior condyles for signs of deficiency or severe wear, and adjustments to the guide were made, as appropriate. 3 degree external rotation pins were placed. The cutting jig for the femur was applied to these pins. The planned cuts were further analyzed prior to performing them with the oscillating saw. No femoral notching was produced. Bone fragments were removed and the cut surfaces were finished, as necessary, with a reciprocating saw. Spacer block technique was then used to confirm that the flexion and extension gaps were equal. Soft tissue releases and adjustment of the tibial and/or femoral cuts were made, as necessary, until the gaps were equal. This included release of the posterior cruciate ligament, which was excessively tight in this patient. The femur was then further finished for a posterior cruciate ligament substituting component. Patellar resurfacing was performed using a reamer. The size of the required patellar component was estimated and the patellar surface was then reamed down to a residual thickness which would recreate the gakona thickness with the component. The exact placement of the patellar component was adjusted for position based on preoperative x-rays and intraoperative findings. Prior to placing trial components, anesthetic solution consisting of ropivicaine with epinephrine, ketorolac, and clonidine was injected carefully and methodically in a grid pattern using aspiration technique into the soft tissue around the knee circumferentially, starting with the deeper tissues first and progressing to fascia, and then finally the skin/subcutaneous tissue. Particular care was taken when injecting the posterior capsule. The trial components were inserted. The tibial tray was allowed to self center and the patella was noted to track very well. The position of the tibial component was marked and the tibia was then finished for a stemmed tibial component. Cement was mixed on the back table and applied to the final components. Trial components were removed and the cut surfaces of the bone were pulse lavaged thoroughly and dried. Cement was then applied to the tibial surface and pressurized into the surface using finger pressurization technique. The tibial component was then applied and excess cement was removed after it was impacted securely and noted to be flush with the cut surface. In similar fashion, the cement was applied to the cut femoral surface, pressurized in using finger pressurization and the component was impacted into place. Excess cement was removed. The polyethylene spacer was then implanted and locked into position. The patellar component was then applied in similar technique and a patellar clamp was used to hold the patella in place as the cement hardened. Once the cement had fully hardened, the knee was reinspected. Any other cement extrusion was removed and final kinematic testing showed range of motion from 0 to 130 degrees with excellent stability, both medially and laterally and appropriate alignment of the leg. Patellar tracking was excellent. The knee was then thoroughly pulse lavaged with normal saline. The tourniquet was deflated and hemostasis was obtained with electrocautery and IV tranexamic acid, 1 g given at the start of the operation and 1 g at the start of closure. Closure was with #2 Ethibond in the fascia/capsule and supplemented with #2 Quill, 2-0 Vicryl suture was used for the subcutaneous tissues and 3-0 Quill for the skin. Dermabond/Steri-Strips were then applied. A lightly compressive dressing was applied using Webril and an Mehul wrap. The patient was then transferred to stretcher and taken to the recovery room in stable condition. Sponge and needle counts were correct.
[2020-02-12 09:57] VITALS: RESP 16
[2020-02-12] MEDS ORDERED: ONDANSETRON 4 MG/2 ML VIAL IVP PRN (10:04)
[2020-02-12] MEDS ORDERED: NALOXONE 0.4 MG/ML 1 ML VIAL IV PRN (10:04)
[2020-02-12] MEDS ORDERED: HYDROmorphone 1 MG/ML 1 ML SYRINGE IVP PRN (10:04)
[2020-02-12] MEDS ORDERED: hydrOXYzine PAMOATE 25 MG CAP PO PRN (10:04)
[2020-02-12] MEDS ORDERED: DIAZEPAM 5 MG TAB PO PRN ×2 (10:04)
[2020-02-12] MEDS ORDERED: MAGNESIUM HYDROXIDE 2,400 MG/10 ML CUP PO PRN (10:04)
[2020-02-12] MEDS ORDERED: HYDROcodone/APAP 7.5-325MG 1 EACH TAB PO PRN (10:20)
--- NOTE | 2020-02-12 10:23 | XR ---
EXAMINATION TYPE: XR knee limited RT DATE OF EXAM: 02/12/2020 CLINICAL HISTORY: Right knee pain and arthritis status post total knee replacement. TECHNIQUE: Portable AP and crosstable lateral views of the right knee are obtained immediately posto peratively. COMPARISON: None FINDINGS: Metallic hardware from total right knee arthroplasty is seen and appears satisfactory in a lignment and position. There is evidence of recent surgery with diffuse subcutaneous and soft tissue swelling noted. IMPRESSION: METALLIC HARDWARE FROM TOTAL RIGHT KNEE ARTHROPLASTY IS SATISFACTORY IN ALIGNMENT.
[2020-02-12 14:04] VITALS: BP 106/68; PULSE 70; TEMP 97.7
[2020-02-12] MEDS ORDERED: SENNOSIDES-DOCUSATE SODIUM 1 EACH TAB PO SCH (21:00)
[2020-02-12] MEDS ORDERED: ASPIRIN 81 MG PO SCH (21:00)
== END 2020-02-12 16:50 | disposition home or self-care (01) ==
LOC: OR 05:57 → 4SSUR 09:57 → OR 16:50
PROVIDERS: ATTEND Orthopaedic Surgery
DX: M17.11 Unilateral primary osteoarthritis, right knee (principal); M21.161 Varus deformity, not elsewhere classified, right knee; E78.5 Hyperlipidemia, unspecified; E03.9 Hypothyroidism, unspecified; K21.9 Gastro-esophageal reflux disease without esophagitis; F32.9 Major depressive disorder, single episode, unspecified; R32 Unspecified urinary incontinence; K30 Functional dyspepsia; R45.0 Nervousness; M54.5 Low back pain; Z85.828 Personal history of other malignant neoplasm of skin; Z97.3 Presence of spectacles and contact lenses; Z96.652 Presence of left artificial knee joint; Z98.890 Other specified postprocedural states; Z87.891 Personal history of nicotine dependence; Z79.891 Long term (current) use of opiate analgesic; Z96.89 Presence of other specified functional implants; Z79.890 Hormone replacement therapy; Z79.899 Other long term (current) drug therapy; Z88.5 Allergy status to narcotic agent
CPT/HCPCS: 97161; 64448; 76942; 88300; 73560; 27447; C1713; C1776; J2250; J0171; J1100; J0690 ×2; J2405; J3010; J1885; J2795 ×2; J0735; J1170

== ENCOUNTER 2020-03-29 12:23 | Emergency (ER) | payer MEDICARE ==
[2020-03-29 12:35] VITALS: BP 123/72; PULSE 95; RESP 20; TEMP 98.4
[2020-03-29] MEDS ORDERED: FLUORESCEIN STRIPS 1 MG STRIP RIGHT EYE ONE (12:45)
[2020-03-29] MEDS ORDERED: PROPARACAINE 0.5% OPHTH DROPS 15 ML BTL RIGHT EYE STA (12:45)
[2020-03-29] MEDS ORDERED: TOBRAMYCIN 0.3% OPHTH DROPS 5 ML BTL RIGHT EYE STA (12:57)
--- NOTE | 2020-03-29 12:59 | ED ---
Eye Problem HPI - General Chief complaint: Eye Problems Stated complaint: Eye Injury Time Seen by Provider: 03/29/20 12:45 Source: patient, RN notes reviewed Mode of arrival: ambulatory Limitations: no limitations - History of Present Illness Initial comments: 54-year-old female presents emergency from chief complaint of right eye irritation. Patient states she went in the eyelash out of her eyes states that she scratched her eye. Patient states that it started feeling up with blood. She denies any visual changes. Patient states is mild discomfort feeling there something in her eye. Patient does not see a current travel writer. Patient denies any blood thinners other than aspirin. Patient offers no other complaints. - Related Data Home Medications Medication Instructions Recorded Confirmed Fenofibrate [Tricor] 160 mg PO DAILY 01/09/14 02/12/20 Gabapentin [Neurontin] 800 mg PO TID 01/09/14 02/12/20 Levothyroxine Sodium [Synthroid] 50 mcg PO DAILY 01/09/14 02/12/20 Omeprazole [PriLOSEC] 20 mg PO AC-BID 01/09/14 02/12/20 lamoTRIgine [LaMICtal] 100 mg PO BID 01/09/14 02/12/20 traZODone HCL 50 mg PO 1800 06/22/18 02/12/20 DULoxetine HCL [Cymbalta] 30 mg PO TID 07/04/18 02/12/20 Progesterone, Micronized 200 mg PO 1800 07/04/18 02/12/20 [Progesterone] Tolterodine Tartrate [Detrol LA] 4 mg PO DAILY 06/12/19 02/12/20 Morphine+ Butivcaine Pain Pump 1 applicate CNTIVINFUS CONTINUOUS 02/08/20 02/12/20 Previous Rx's Medication Instructions Recorded HYDROcodone/APAP 5-325MG [Butler 1 each PO Q8H PRN #15 tab 06/19/19 5-325] Sennosides-Docusate Sodium 1 tab PO BID #60 tablet 06/19/19 [Senokot-S] Aspirin 81 mg PO BID 28 Days #56 chewable 02/12/20 HYDROcodone/APAP 10-325MG [Butler 1 each PO Q6H PRN #28 tab 02/12/20 10] Allergies Allergy/AdvReac Type Severity Reaction Status Date / Time oxycodone AdvReac Nausea & Verified 03/29/20 12:35 Vomiting Review of Systems ROS Statement: Those systems with pertinent positive or pertinent negative responses have been documented in the HPI. ROS Other: All systems not noted in ROS Statement are negative. Past Medical History Past Medical History: Cancer, GERD/Reflux, Hyperlipidemia, Musculoskeletal Disorder, Thyroid Disorder Additional Past Medical History / Comment(s): HX OF SKIN CA, POST LAMINECTOMY SYNDROME. CHRONIC PAIN History of Any Multi-Drug Resistant Organisms: None Reported Past Surgical History: Back Surgery, Section, Hysterectomy Additional Past Surgical History / Comment(s): brain surgery (noncavernous malformation per pt), trial spinal cord stim done, LEFT ROTATOR CUFF, OPEN SPINAL CORD STIMULATOR TRIAL PLACEMENT, DECOMPRESSION THORACIC LAMINECTOMY T8- T9, PAIN CLINIC PROCEDURE, 01/20/17 lumbar nerve block, PAIN PUMP INSERTION, EGD Past Anesthesia/Blood Transfusion Reactions: No Reported Reaction Past Psychological History: Anxiety, Bipolar, Depression Smoking Status: Never smoker Past Alcohol Use History: None Reported Past Drug Use History: None Reported - Past Family History Father Family Medical History: Cancer Mother Family Medical History: No Reported History General Exam Limitations: no limitations General appearance: alert, in no apparent distress Head exam: Present: atraumatic, normocephalic, normal inspection Eye exam: Present: PERRL, EOMI, conjunctival injection (Right eye with subconjunctival hemorrhage), other (Fluorescein dye and Wood's lamp were used to evaluate the right eye there is a small abrasion of the conjunctiva on the medial aspect). Absent: normal appearance, scleral icterus, periorbital swelling ENT exam: Present: normal exam, normal oropharynx, mucous membranes moist, TM's normal bilaterally Neck exam: Present: normal inspection, full ROM. Absent: tenderness, meningismus, lymphadenopathy Respiratory exam: Present: normal lung sounds bilaterally. Absent: respiratory distress, wheezes, rales, rhonchi, stridor Cardiovascular Exam: Present: regular rate, normal rhythm, normal heart sounds. Absent: systolic murmur, diastolic murmur, rubs, gallop, clicks Course Vital Signs 03/29/20 12:33 Temperature 98.4 F Pulse Rate 95 Respiratory 20 Rate Blood Pressure 123/72 O2 Sat by Pulse 99 Oximetry Medical Decision Making - Medical Decision Making Patient has small abrasion, subconjunctival hemorrhage. Patient was started on eyedrops. Patient follow-up ophthalmology. Patient will return for any worsening symptoms. Disposition Clinical Impression: Subconjunctival hemorrhage of right eye, Conjunctival abrasion Disposition: HOME SELF-CARE Condition: Stable Instructions (If sedation given, give patient instructions): Subconjunctival Hemorrhage (ED) Additional Instructions: Please return to the Emergency Department if symptoms worsen or any other concerns. Use eyedrops 1 drop every 4 hours for 5 days. Is patient prescribed a controlled substance at d/c from ED?: No Referrals: Donovan Yepez MD [Primary Care Provider] - 1-2 days Madelyn Cadena MD [STAFF PHYSICIAN] - 1-2 days Time of Disposition: 12:59
[2020-03-29] MEDS ORDERED: DIPH,PERTUS(ACELL)TETVAC-LF 0.5 ML VIAL IM ONE (13:10)
== END 2020-03-29 13:53 | disposition home or self-care (01) ==
LOC: EC 12:23
DX: H11.31 Conjunctival hemorrhage, right eye (principal); S05.01XA Injury of conjunctiva and corneal abrasion without foreign body, right eye, initial encounter; E78.5 Hyperlipidemia, unspecified; K21.9 Gastro-esophageal reflux disease without esophagitis; F41.9 Anxiety disorder, unspecified; F31.9 Bipolar disorder, unspecified; E07.9 Disorder of thyroid, unspecified; Z79.890 Hormone replacement therapy; Z79.899 Other long term (current) drug therapy; Z79.82 Long term (current) use of aspirin; Z23 Encounter for immunization; Z88.5 Allergy status to narcotic agent; Z85.828 Personal history of other malignant neoplasm of skin; W26.8XXA Contact with other sharp object(s), not elsewhere classified, initial encounter; Y92.009 Unspecified place in unspecified non-institutional (private) residence as the place of occurrence of the external cause
CPT/HCPCS: 90471; 90715; 99283

== ENCOUNTER → 2020-07-31 | Day surgery (SDC) | payer MEDICARE ==
[2020-07-29 16:02] VITALS: BMI 34.3
[~2020-07-31] MED LIST changes: -ACETAMINOPHEN TAB 500 MG TAB PO ONE; -GABAPENTIN 300 MG CAP PO ONE; +LACTATED RINGERS 1,000 ML IV ONE; +LACTATED RINGERS 1,000 ML IV SCH; +LIDOCAINE 1% INJ 10MG/ML (20 ML MDV) ONE; -MELOXICAM 7.5 MG TAB PO ONE; -ONDANSETRON 4 MG/2 ML VIAL IVP ONE; +PROPOFOL 10 MG/ML 20 ML VIAL IV ONE; -TRANEXAMIC ACID 1,000 MG in SODIUM CHLORIDE 0.9% 100 ML IVPB ONE
[2020-07-31 10:29] VITALS: TEMP 97.8
--- NOTE | 2020-07-31 11:54 | P.PCN ---
Date of Procedure: 07/31/20 Procedure(s) Performed: BRIEF HISTORY: Patient is a 55-year-old pleasant female scheduled for an elective colonoscopy as a part of screening for colorectal neoplasia. Her last colonoscopy was 12 years ago. PROCEDURE PERFORMED: Colonoscopy. PREOPERATIVE DIAGNOSIS: Screening for colon cancer. IV sedation per Anesthesia. PROCEDURE: After informed consent was obtained, the patient, was brought into the endoscopy unit. IV sedation was administered by Anesthesia under continuous monitoring. Digital rectal examination was normal. Initially the Olympus CF-160 flexible video colonoscope was then inserted in the rectum, gradually advanced into the cecum without any difficulty. Careful examination was performed as the scope was gradually being withdrawn. Ileocecal valve and the appendiceal orifice were visualized and appeared normal. Prep was excellent. Mucosa of the cecum, ascending colon, had mild melanosis coli. Rest of the transverse colon, descending colon, sigmoid colon, and rectum appeared normal. Retroflexion was performed in the rectum and no lesions were seen. The patient tolerated the procedure well. IMPRESSION: Normal-appearing colon from rectum to cecum no evidence of colorectal neoplasia. Mild melanosis coli. RECOMMENDATIONS: Findings of this examination were discussed with the patient is a family. She was advised to have a repeat screening colonoscopy in 10 years.
[2020-07-31 11:58] VITALS: RESP 16
[2020-07-31 12:22] VITALS: BP 127/62; PULSE 83
== END ==
LOC: ORWHC2ENDO 10:11
PROVIDERS: ATTEND Internal Medicine Gastroenterology
DX: Z12.11 Encounter for screening for malignant neoplasm of colon (principal); K63.89 Other specified diseases of intestine; Z79.899 Other long term (current) drug therapy; Z88.5 Allergy status to narcotic agent; E78.5 Hyperlipidemia, unspecified; E07.9 Disorder of thyroid, unspecified; K21.9 Gastro-esophageal reflux disease without esophagitis; Z96.89 Presence of other specified functional implants; Z79.890 Hormone replacement therapy
CPT/HCPCS: J2001; J2704; G0121

== ENCOUNTER → 2020-08-16 | Outpatient (CLI) | payer MEDICARE ==
[2020-08-16 13:08] LABS: Basophils # (A) 0.1 k/uL (0-0.2); Basophils % (A) 1 %; Eosinophils # (A) 0.2 k/uL (0-0.7); Eosinophils % (A) 3 %; HCT 39.9 % (34.0-46.0); HGB 13.4 gm/dL (11.4-16.0); Lymphocytes # (A) 2.5 k/uL (1.0-4.8); Lymphocytes % (A) 42 %; MCHC 33.7 g/dL (31.0-37.0); MCV 89.1 fL (80.0-100.0); Mean Platelet Volume 7.4; Monocytes # (A) 0.4 k/uL (0-1.0); Monocytes % (A) 6 %; Neutrophils # (A) 2.7 k/uL (1.3-7.7); Neutrophils % (A) 46 %; Platelet Count 344 k/uL (150-450); RBC 4.48 m/uL (3.80-5.40); RDW 12.3 % (11.5-15.5); WBC 5.9 k/uL (3.8-10.6)
[2020-08-16 14:07] LABS: Erythrocyte Sedimentation Rate 8 mm/hr (0-20)
[2020-08-16 21:21] LABS: African American GFR (CKD) 72.4 (60.0-200.0); Albumin 4.6 g/dL (3.80-4.90); Anion Gap 9.3 mmol/L (4.00-12.00); Calcium 9.9 mg/dL (8.7-10.3); Carbon Dioxide 29.7 mmol/L (21.6-31.8); Globulin 2.3 g/dL (1.6-3.3); Non-African American GFR(CKD) 62.5 (60.0-200.0); Potassium 4.1 mmol/L (3.5-5.5); Total Bilirubin 0.2 mg/dL (0.3-1.2); Total Protein 6.9 g/dL (6.2-8.2)
[2020-08-16 21:29] LABS: T4, Free (Free Thyroxine) 1.1 ng/dL (0.80-1.80)
== END | disposition home or self-care (01) ==
LOC: LABWHC1 12:20
PROVIDERS: ATTEND Dermatology
DX: L74.511 Primary focal hyperhidrosis, face (principal)
CPT/HCPCS: 36415; 80053; 84439; 84443; 85025; 85652

== ENCOUNTER 2020-09-01 14:11 | Emergency (ER) | payer MEDICARE ==
[2020-09-01 14:21] VITALS: TEMP 98
[2020-09-01] MEDS ORDERED: ONDANSETRON 4 MG/2 ML VIAL IVP STA (14:44)
[2020-09-01] MEDS ORDERED: SODIUM CHLORIDE 0.9% 1,000 ML IV STA (14:44)
[2020-09-01] MEDS ORDERED: HYDROmorphone 1 MG/ML 1 ML SYRINGE IVP STA ×2 (14:45→17:15)
--- NOTE | 2020-09-01 14:51 | ED ---
Back Pain HPI - General Chief Complaint: Back Pain/Injury Stated Complaint: Back Pain Time Seen by Provider: 09/01/20 14:32 Source: patient Limitations: no limitations - History of Present Illness Initial Comments: 55 year-old female patient presents to the emergency department for evaluation of right rib/flank pain. Patient states that she has had pain to the area on and off for the last 2 months. States that over the last 4-5 days the pain has been more constant and severe. States whenever she moves to change position the pain intensifies. She denies any associated symptoms including nausea, vomiting, shortness of breath, or cough. Denies any recent injury to the area. Denies any hematuria, dysuria, urinary frequency, urinary urgency. Denies history of kidney stones. She has had cholecystectomy in the past. Patient denies any recent rash, fever, chills, chest pain, abdominal pain, diarrhea, constipation, back pain, numbness, tingling, dizziness, weakness, headache, visual changes, or any other complaints. - Related Data Home Medications Medication Instructions Recorded Confirmed Fenofibrate [Tricor] 160 mg PO DAILY 01/09/14 09/01/20 Gabapentin [Neurontin] 800 mg PO TID 01/09/14 09/01/20 Levothyroxine Sodium [Synthroid] 50 mcg PO DAILY 01/09/14 09/01/20 Omeprazole [PriLOSEC] 20 mg PO AC-BID 01/09/14 09/01/20 lamoTRIgine [LaMICtal] 100 mg PO BID 01/09/14 09/01/20 traZODone HCL 100 mg PO HS 06/22/18 09/01/20 DULoxetine HCL [Cymbalta] 90 mg PO DAILY 07/04/18 09/01/20 Progesterone, Micronized 200 mg PO HS 07/04/18 09/01/20 [Progesterone] Tolterodine Tartrate [Detrol LA] 4 mg PO DAILY 06/12/19 09/01/20 Docusate [Colace] 200 mg PO TID 07/29/20 09/01/20 Morphine W/ Bupivicaine Pump 1 applic INTRATHECA CONTINUOUS 07/29/20 09/01/20 Sennosides [Senna] 17.2 mg PO TID 07/29/20 09/01/20 Cholecalciferol [Vitamin D3 (25 1,000 unit PO DAILY 09/01/20 09/01/20 Mcg = 1000 Iu)] Cyclobenzaprine [Flexeril] 5 mg PO BID 09/01/20 09/01/20 HYDROcodone/APAP 5-325MG [[place] 1 tab PO BID PRN 09/01/20 09/01/20 5-325] LORazepam [Ativan] 1 mg PO BID PRN 09/01/20 09/01/20 Melatonin 10 mg PO HS 09/01/20 09/01/20 Multivitamins, Thera [Multivitamin 1 tab PO DAILY 09/01/20 09/01/20 (formulary)] Sleep Aid 1 tab PO HS 09/01/20 09/01/20 Vitamin C/Biotin [Hair, Skin and 1 tab PO DAILY 09/01/20 09/01/20 Nails] Previous Rx's Medication Instructions Recorded Ketorolac [Toradol] 10 mg PO Q6HR #12 tab 09/01/20 Allergies Allergy/AdvReac Type Severity Reaction Status Date / Time oxycodone AdvReac Nausea & Verified 09/01/20 16:32 Vomiting Review of Systems ROS Statement: Those systems with pertinent positive or pertinent negative responses have been documented in the HPI. ROS Other: All systems not noted in ROS Statement are negative. Past Medical History Past Medical History: Cancer, GERD/Reflux, Hyperlipidemia, Musculoskeletal Disorder, Thyroid Disorder Additional Past Medical History / Comment(s): Hx of skin cancer, sqamous cell. Post Laminectomy Syndrome, chronic pain, has pain pump. Constipation R/T Rx, uses daily Rx and enema few times per week. History of Any Multi-Drug Resistant Organisms: None Reported Past Surgical History: Back Surgery, Section, Hysterectomy, Joint Replacement Additional Past Surgical History / Comment(s): C-S x2. Brain surgery (noncavernous malformation), trial spinal cord stim done, LT Rotator cuff, OPEN SPINAL CORD STIMULATOR TRIAL PLACEMENT, Decompression Thoracic Laminectomy T8-T9, Pain clinic proc, 01/20/17 lumbar nerve block, Pain pump insertion, Back surgery to remove rods. EGD. Ang Total Knees. Past Anesthesia/Blood Transfusion Reactions: No Reported Reaction Past Psychological History: Anxiety, Bipolar, Depression Smoking Status: Former smoker Past Alcohol Use History: None Reported Past Drug Use History: None Reported - Past Family History Father Family Medical History: Cancer Additional Family Medical History / Comment(s): mesothelioma Mother Family Medical History: No Reported History General Exam Limitations: no limitations General appearance: alert, in no apparent distress, other (This is a well-developed, well-nourished adult female patient in mild distress related to pain. Vital signs upon presentation are temperature 98.0F, pulse 81, respirations 18, blood pressure 113/66, pulse ox 98% on room air.) Respiratory exam: Present: normal lung sounds bilaterally. Absent: respiratory distress, wheezes, rales, rhonchi, stridor Cardiovascular Exam: Present: regular rate, normal rhythm, normal heart sounds. Absent: systolic murmur, diastolic murmur, rubs, gallop, clicks GI/Abdominal exam: Present: soft, tenderness (Right upper quadrant tenderness), normal bowel sounds. Absent: distended, guarding, rebound, rigid Neurological exam: Present: alert, oriented X3, CN II-XII intact Psychiatric exam: Present: normal affect, normal mood Skin exam: Present: warm, dry, intact, normal color. Absent: rash Course Vital Signs 09/01/20 09/01/20 14:17 17:21 Temperature 98 F Pulse Rate 81 76 Respiratory 18 17 Rate Blood Pressure 113/66 128/69 O2 Sat by Pulse 98 92 L Oximetry Medical Decision Making - Medical Decision Making 35-year-old female patient presented to the emergency department today for evaluation of right rib, flank, right upper quadrant pain. Physical examination did reveal right rib tenderness but no abdominal tenderness. Labs reviewed and are unremarkable. CT abdomen and pelvis was obtained and was negative. Patient did have some improvement in symptoms with pain medication medication. We did discuss possibility of a musculoskeletal cause for her pain. She'll be discharged to follow up with her primary care physician in the morning. She is urged discussed MRI for further evaluation. Return parameters were discussed in detail. She verbalizes understanding and agrees with this plan. - Lab Data Result diagrams: 09/01/20 15:28 09/01/20 15: Lab Results 09/01/20 09/01/20 09/01/20 Range/Units 15:28 15:28 15:28 WBC 4.9 (3.8-10.6) k/uL RBC 4.44 (3.80-5.40) m/uL Hgb 13.3 (11.4-16.0) gm/dL Hct 39.1 (34.0-46.0) % MCV 88.1 (80.0-100.0) fL MCH 30.0 (25.0-35.0) pg MCHC 34.0 (31.0-37.0) g/dL RDW 12.2 (11.5-15.5) % Plt Count 298 (150-450) k/uL MPV 6.9 Neutrophils % 47 % Lymphocytes % 40 % Monocytes % 6 % Eosinophils % 3 % Basophils % 2 % Neutrophils # 2.3 (1.3-7.7) k/uL Lymphocytes # 2.0 (1.0-4.8) k/uL Monocytes # 0.3 (0-1.0) k/uL Eosinophils # 0.1 (0-0.7) k/uL Basophils # 0.1 (0-0.2) k/uL Sodium 137 (137-145) mmol/L Potassium 4.3 (3.5-5.1) mmol/L Chloride 104 (98-107) mmol/L Carbon Dioxide 31 H (22-30) mmol/L Anion Gap 2 mmol/L BUN 10 (7-17) mg/dL Creatinine 0.70 (0.52-1.04) mg/dL Est GFR (CKD-EPI)AfAm >90 (>60 ml/min/1.73 sqM) Est GFR (CKD-EPI)NonAf >90 (>60 ml/min/1.73 sqM) Glucose 143 H (74-99) mg/dL Plasma Lactic Acid [place] (0.7-2.0) mmol/L Calcium 9.7 (8.4-10.2) mg/dL Total Bilirubin 0.3 (0.2-1.3) mg/dL AST 24 (14-36) U/L ALT 20 (4-34) U/L Alkaline Phosphatase 51 (38-126) U/L Total Protein 7.0 (6.3-8.2) g/dL Albumin 4.1 (3.5-5.0) g/dL Amylase 44 (30-110) U/L Lipase 45 (23-300) U/L Urine Color Yellow Urine Appearance Turbid H (Clear) Urine pH 8.0 (5.0-8.0) Ur Specific [place] 1.014 (1.001-1.035) Urine Protein Negative (Negative) Urine Glucose (UA) Negative (Negative) Urine Ketones Negative (Negative) Urine Blood Negative (Negative) Urine Nitrite Negative (Negative) Urine Bilirubin Negative (Negative) Urine Urobilinogen <2.0 (<2.0) mg/dL Ur Leukocyte Esterase Negative (Negative) Urine RBC 2 (0-5) /hpf Ur Squamous Epith Cells 1 (0-4) /hpf Amorphous Sediment Rare H (None) /hpf Hyaline Casts 5 H (0-2) /lpf Urine Mucus Rare H (None) /hpf 09/01/20 Range/Units 15:28 WBC (3.8-10.6) k/uL RBC (3.80-5.40) m/uL Hgb (11.4-16.0) gm/dL Hct (34.0-46.0) % MCV (80.0-100.0) fL MCH (25.0-35.0) pg MCHC (31.0-37.0) g/dL RDW (11.5-15.5) % Plt Count (150-450) k/uL MPV Neutrophils % % Lymphocytes % % Monocytes % % Eosinophils % % Basophils % % Neutrophils # (1.3-7.7) k/uL Lymphocytes # (1.0-4.8) k/uL Monocytes # (0-1.0) k/uL Eosinophils # (0-0.7) k/uL Basophils # (0-0.2) k/uL Sodium (137-145) mmol/L Potassium (3.5-5.1) mmol/L Chloride (98-107) mmol/L Carbon Dioxide (22-30) mmol/L Anion Gap mmol/L BUN (7-17) mg/dL Creatinine (0.52-1.04) mg/dL Est GFR (CKD-EPI)AfAm (>60 ml/min/1.73 sqM) Est GFR (CKD-EPI)NonAf (>60 ml/min/1.73 sqM) Glucose (74-99) mg/dL Plasma Lactic Acid [place] 1.1 (0.7-2.0) mmol/L Calcium (8.4-10.2) mg/dL Total Bilirubin (0.2-1.3) mg/dL AST (14-36) U/L ALT (4-34) U/L Alkaline Phosphatase (38-126) U/L Total Protein (6.3-8.2) g/dL Albumin (3.5-5.0) g/dL Amylase (30-110) U/L Lipase (23-300) U/L Urine Color Urine Appearance (Clear) Urine pH (5.0-8.0) Ur Specific [place] (1.001-1.035) Urine Protein (Negative) Urine Glucose (UA) (Negative) Urine Ketones (Negative) Urine Blood (Negative) Urine Nitrite (Negative) Urine Bilirubin (Negative) Urine Urobilinogen (<2.0) mg/dL Ur Leukocyte Esterase (Negative) Urine RBC (0-5) /hpf Ur Squamous Epith Cells (0-4) /hpf Amorphous Sediment (None) /hpf Hyaline Casts (0-2) /lpf Urine Mucus (None) /hpf - Radiology Data Radiology results: report reviewed, image reviewed CT abdomen and pelvis with contrast is obtained. Report was reviewed in its entirety. Impression by Dr. Nelson shows negative computed tomography scan abdomen and pelvis. Do not see across her abdominal pain. No adverse change compared to old exam. Disposition Clinical Impression: Rib pain on right side, Abdominal pain Disposition: HOME SELF-CARE Condition: Good Instructions (If sedation given, give patient instructions): Abdominal Pain (ED) Additional Instructions: Follow-up with your primary care physician first thing tomorrow. Continue home medications for pain control. Return to the emergency department for any new, worsening, or concerning symptoms. Is patient prescribed a controlled substance at d/c from ED?: No Referrals: Donovan Yepez MD [Primary Care Provider] - 1-2 days Time of Disposition: 17:43
[2020-09-01 15:36] LABS: Basophils # (A) 0.1 k/uL (0-0.2); Basophils % (A) 2 %; Eosinophils # (A) 0.1 k/uL (0-0.7); Eosinophils % (A) 3 %; HCT 39.1 % (34.0-46.0); HGB 13.3 gm/dL (11.4-16.0); Lymphocytes % (A) 40 %; MCV 88.1 fL (80.0-100.0); Mean Platelet Volume 6.9; Monocytes # (A) 0.3 k/uL (0-1.0); Monocytes % (A) 6 %; Neutrophils # (A) 2.3 k/uL (1.3-7.7); Neutrophils % (A) 47 %; Platelet Count 298 k/uL (150-450); RBC 4.44 m/uL (3.80-5.40); RDW 12.2 % (11.5-15.5); WBC 4.9 k/uL (3.8-10.6)
[2020-09-01 15:57] LABS: Amorphous Sediment,Urine Rare /hpf; Appearance,Urine Turbid (Clear); Bilirubin,Urine Negative (Negative); Blood,Urine Negative (Negative); Color,Urine Yellow; Glucose,Urine (UA) Negative (Negative); Hyaline Casts,Urine 5 /lpf (0-2); Ketones,Urine Negative (Negative); Leukocyte Esterase,Urine Negative (Negative); Mucus,Urine Rare /hpf; Nitrite,Urine Negative (Negative); Protein,Urine Negative (Negative); RBC,Urine 2 /hpf (0-5); Specific Gravity,Urine 1.014 (1.001-1.035); Squamous Epithelial Cell,Urine 1 /hpf (0-4); Urobilinogen,Urine <2.0 mg/dL (<2.0)
[2020-09-01 16:19] LABS: ALT 20 U/L (4-34); AST 24 U/L (14-36); African American GFR (CKD) >90 (>60 ml/min/1.73 sqM); Albumin 4.1 g/dL (3.5-5.0); Alkaline Phosphatase 51 U/L (38-126); Amylase 44 U/L (30-110); Anion Gap 2 mmol/L; Blood Urea Nitrogen 10 mg/dL (7-17); Calcium 9.7 mg/dL (8.4-10.2); Carbon Dioxide 31 mmol/L (22-30); Chloride 104 mmol/L (98-107); Glucose 143 mg/dL (74-99); Lipase 45 U/L (23-300); Non-African American GFR(CKD) >90 (>60 ml/min/1.73 sqM); Potassium 4.3 mmol/L (3.5-5.1); Sodium 137 mmol/L (137-145); Total Bilirubin 0.3 mg/dL (0.2-1.3)
[2020-09-01] MEDS ORDERED: KETOROLAC 15 MG/ML 1 ML VIAL IVP STA (17:15)
--- NOTE | 2020-09-01 17:15 | CT ---
EXAMINATION TYPE: CT abdomen pelvis w con DATE OF EXAM: 09/01/2020 COMPARISON: 07/19/2018 HISTORY: Rt flank/rib pain. Hx back sx/pain pump. CT DLP: 1705.7 mGycm Automated exposure control for dose reduction was used. CONTRAST: Performed with IV Contrast, patient injected with 100 mL of Isovue 300. There is minimal subsegmental atelectasis at the lung bases. Heart size is normal. There is no perica rdial effusion. There are clips from cholecystectomy. Liver and spleen appear intact. Stomach is intact. The bile beulah ts are not dilated. There is no pancreatic mass. There is no adrenal mass. Satisfactory contrast opacification. There is no hydronephrosis. Ureters ar e not dilated. Bladder distends smoothly. There is no mesenteric edema. There is no ascites or free air. There is no evidence of a bowel obstru ction. There is multilevel lumbar spine fusion surgery with metal artifact. There is no inguinal vielka ia. Appendix is not definitely seen. There is no sign of thickened appendix. Lumbar vertebra have normal alignment. There is no compression fracture. I see no bony destructive pr ocess. Bony pelvis is intact. IMPRESSION: Negative CT scan abdomen and pelvis. I do not see a cause for abdominal pain. No adverse change veronica red to old exam.
[2020-09-01 17:22] VITALS: BP 128/69; PULSE 76; RESP 17
== END 2020-09-01 18:06 | disposition home or self-care (01) ==
LOC: EC 14:11
DX: R10.9 Unspecified abdominal pain (principal); R07.81 Pleurodynia; R10.811 Right upper quadrant abdominal tenderness; E78.5 Hyperlipidemia, unspecified; K21.9 Gastro-esophageal reflux disease without esophagitis; E07.9 Disorder of thyroid, unspecified; F41.9 Anxiety disorder, unspecified; F31.9 Bipolar disorder, unspecified; Z79.890 Hormone replacement therapy; Z79.899 Other long term (current) drug therapy; Z88.5 Allergy status to narcotic agent; Z87.891 Personal history of nicotine dependence; Z85.828 Personal history of other malignant neoplasm of skin; Z90.49 Acquired absence of other specified parts of digestive tract
CPT/HCPCS: 36415; 80053; 82150; 83605; 83690; 85025; 81001; 74177; 99284; 96374; 96375 ×2; 96376; 96361 ×3; J2405; J1170; J1885; Q9967

== ENCOUNTER → 2020-11-01 | Outpatient (CLI) | payer MEDICARE ==
--- NOTE | 2020-11-01 13:30 | FL ---
EXAMINATION TYPE: FL barium swallow DATE OF EXAM: 11/01/2020 COMPARISON: None HISTORY: GERD TECHNIQUE: A double air contrast UGI study is performed. FINDINGS: Contrast passes through the esophagus without intraluminal or mural defects. The horizontal drinking position there is incomplete stripping the esophageal bolus with a large residual remaining. Secondar y and tertiary contractions are evident. Small hiatal hernia is present. Fluoroscopy time 34 seconds Images: 77 IMPRESSIONS: 1. No suspicious filling defects 2. Presbyesophagus
== END | disposition home or self-care (01) ==
LOC: RADUSWWP 09:12
PROVIDERS: ATTEND Surgery Plastic and Reconstructive Surgery
DX: K22.8 Other specified diseases of esophagus (principal)
CPT/HCPCS: 74220

== ENCOUNTER → 2020-11-01 | Outpatient (CLI) | payer MEDICARE ==
--- NOTE | 2020-11-04 12:02 | MM ---
Reason for exam: screening (asymptomatic). Last mammogram was performed 1 year and 2 months ago. History: Patient is postmenopausal and has history of other cancer at age 35. Family history of breast cancer in aunt at age 40, breast cancer in aunt, and breast cancer in grandmother at age 40. Took estrogen for 2 years. Taking progesterone. Physical Findings: A clinical breast exam by your physician is recommended on an annual basis and results should be correlated with mammographic findings. MG Screening Mammo w CAD Bilateral CC and MLO view(s) were taken. Prior study comparison: September 01, 2019, bilateral MG screening mammo w CAD. May 25, 2018, bilateral MG 3d screening mammo w/cad. There are scattered fibroglandular densities. No significant changes when compared with prior studies. ASSESSMENT: Negative, BI-RAD 1 RECOMMENDATION: Routine screening mammogram of both breasts in 1 year.
== END | disposition home or self-care (01) ==
LOC: RADMAMWWP 09:10
PROVIDERS: ATTEND Family Medicine
DX: Z12.31 Encounter for screening mammogram for malignant neoplasm of breast (principal)
CPT/HCPCS: 77067

== ENCOUNTER 2020-11-20 08:27 | Day surgery (SDC) | payer MEDICARE ==
[2020-11-18 14:29] VITALS: BMI 35.2
--- NOTE | 2020-11-20 04:07 | P.GSHP ---
History of Present Illness H&P Date: 11/20/20 CHIEF COMPLAINT: GERD HISTORY OF PRESENT ILLNESS: The patient is a 55-year-old female who presents reports gastroesophageal reflux disease. Upper endoscopy was offered for further evaluation and management. PAST MEDICAL HISTORY: Please see list. PAST SURGICAL HISTORY: Please see list. MEDICATIONS: Please see list. ALLERGIES: Please see list. SOCIAL HISTORY: No illicit drug use FAMILY HISTORY: No reports of Crohn disease or ulcerative colitis. REVIEW OF ORGAN SYSTEMS: CONSTITUTIONAL: No reports of fevers or chills. GI: Denies any blood in stools or constipation. PHYSICAL EXAM: VITAL SIGNS: Stable GENERAL: Well-developed and pleasant in no acute distress. HEENT: No scleral icterus. Extraocular movements grossly intact. Moist buccal mucosa. NECK: Supple without lymphadenopathy. CHEST: Unlabored respirations. Equal bilateral excursions. CARDIOVASCULAR: Regular rate and rhythm. Distal 2+ pulses. ABDOMEN: Soft, nondistended. MUSCULOSKELETAL: No clubbing, cyanosis, or edema. ASSESSMENT: 1. Gastroesophageal reflux disease PLAN: 1. Recommend proceeding with an upper endoscopy Past Medical History Past Medical History: Cancer, GERD/Reflux, Hyperlipidemia, Osteoarthritis (OA), Thyroid Disorder Additional Past Medical History / Comment(s): Hx of skin cancer, sqamous cell. Post Laminectomy Syndrome, chronic pain, has pain pump. Constipation related to medications, weak thigh muscles, uses cane, walker and sometimes a wheelchair. History of Any Multi-Drug Resistant Organisms: None Reported Past Surgical History: Back Surgery, Section, Hysterectomy, Joint Replacement Additional Past Surgical History / Comment(s): Section X2, brain surgery (noncavernous malformation), trial spinal cord stimulation done, left rotator cuff repair, OPEN SPINAL CORD STIMULATOR TRIAL PLACEMENT, Decompression Thoracic Laminectomy T8-T9, Pain Clinic procedure, pain pump insertion, back surgery to remove rods, EGD, bilateral total knees, fusion of T8-S1. Past Anesthesia/Blood Transfusion Reactions: No Reported Reaction Past Psychological History: Anxiety, Bipolar, Depression Additional Psychological History / Comment(s): HAS BORDERLINE MANIC DEPRESSION, "under control". Smoking Status: Former smoker Past Alcohol Use History: None Reported Additional Past Alcohol Use History / Comment(s): Quit smoking 2011, smoked 20 for years on and off. Past Drug Use History: Marijuana Additional Drug Use History / Comment(s): Uses Marijuana rarely, twice a year. - Past Family History Father Family Medical History: Cancer Additional Family Medical History / Comment(s): Mesothelioma. Mother Family Medical History: No Reported History Medications and Allergies Home Medications Medication Instructions Recorded Confirmed Type Fenofibrate [Tricor] 160 mg PO DAILY 01/09/14 11/18/20 History Gabapentin [Neurontin] 800 mg PO TID 01/09/14 11/18/20 History Levothyroxine Sodium [Synthroid] 50 mcg PO DAILY 01/09/14 11/18/20 History Omeprazole [PriLOSEC] 20 mg PO AC-BID 01/09/14 11/18/20 History lamoTRIgine [LaMICtal] 100 mg PO BID 01/09/14 11/18/20 History traZODone HCL 100 mg PO HS 06/22/18 11/18/20 History DULoxetine HCL [Cymbalta] 30 mg PO TID 07/04/18 11/18/20 History Progesterone, Micronized 200 mg PO HS 07/04/18 11/18/20 History [Progesterone] Tolterodine Tartrate [Detrol LA] 4 mg PO DAILY 06/12/19 11/18/20 History Morphine W/ Bupivicaine Pump 1 applic INTRATHECA CONTINUOUS 07/29/20 11/18/20 History Cholecalciferol [Vitamin D3 (25 1,000 unit PO DAILY 09/01/20 11/18/20 History Mcg = 1000 Iu)] HYDROcodone/APAP 5-325MG [[place] 1 tab PO Q6H PRN 09/01/20 11/18/20 History 5-325] Vitamin C/Biotin [Hair, Skin and 1 tab PO DAILY 09/01/20 11/18/20 History Nails] Baclofen 10 mg PO TID 11/18/20 11/18/20 History Z-Quil (Sleep Aid) 1 tab PO HS 11/18/20 11/18/20 History Allergies Allergy/AdvReac Type Severity Reaction Status Date / Time oxycodone AdvReac Nausea & Verified 11/18/20 14:07 Vomiting
[~2020-11-20 08:27] MED LIST changes: -LACTATED RINGERS 1,000 ML IV ONE; +LIDOCAINE 1% (10MG/ML) FOR IV START INTRADERMA PRN; -LIDOCAINE 1% INJ 10MG/ML (20 ML MDV) ONE; -PROPOFOL 10 MG/ML 20 ML VIAL IV ONE
[2020-11-20 09:00] VITALS: RESP 16; TEMP 97.2
[2020-11-20] MEDS ORDERED: LACTATED RINGERS 1,000 ML IV ONE (09:08)
[2020-11-20] MEDS ORDERED: PROPOFOL 10 MG/ML 20 ML VIAL IV ONE (09:35)
[2020-11-20] MEDS ORDERED: LIDOCAINE 1% INJ 10MG/ML (20 ML MDV) ONE (09:35)
--- NOTE | 2020-11-20 09:48 | P.PCN ---
Date of Procedure: 11/20/20 Description of Procedure: PREOPERATIVE DIAGNOSIS: Gastroesophageal reflux disease. Morbid obesity. POSTOPERATIVE DIAGNOSIS: Morbid obesity. Gastritis. Gastroesophageal reflux disease. Presbyesophagus OPERATION: Esophagogastroduodenoscopy with biopsies along antrum. SURGEON: Lulu Davis MD ANESTHESIA: MAC. INDICATIONS: The patient is a 55-year-old female who presents with a history of reflux disease. Benefits and risks of the procedure were described. Informed consent was obtained. DESCRIPTION: The patient was brought into the endoscopy suite and laid in the left lateral decubitus position. An Olympus gastroscope was passed along the posterior oropharynx down to the distal esophagus where the squamocolumnar junction was encountered at 37 cm from the incisors. The stomach was entered and no bile reflux was found. Additional findings are listed below. Biopsies with cold forceps were obtained of the antrum. The first through third portion of the duodenum was examined and unremarkable. Retroflexion of the scope confirmed Hill grade 1 lower esophageal valve. The squamocolumnar junction demonstrated LA grade A erosive esophagitis. The stomach was desufflated. The patient tolerated the procedure well. FINDINGS: Squamocolumnar junction 37 cm from the incisors. Diaphragmatic hiatus at 37 cm. Hill grade 1 lower esophageal valve. LA grade A erosive esophagitis. No active duodenitis. Chronic gastritis, moderate Tertiary contractions along the esophagus consistent with presbyesophagus RECOMMENDATIONS: Upper endoscopy as needed. Omeprazole 40 mg daily Plan - Discharge Summary Discharge Rx Participant: No New Discharge Prescriptions: New Omeprazole [PriLOSEC] 40 mg PO DAILY #14 cap Continue lamoTRIgine [LaMICtal] 100 mg PO BID Levothyroxine Sodium [Synthroid] 50 mcg PO DAILY Gabapentin [Neurontin] 800 mg PO TID Fenofibrate [Lofibra] 160 mg PO DAILY traZODone HCL 100 mg PO HS DULoxetine HCL [Cymbalta] 30 mg PO TID Progesterone, Micronized [Progesterone] 200 mg PO HS Tolterodine Tartrate [Detrol LA] 4 mg PO DAILY Morphine W/ Bupivicaine Pump 1 applic INTRATHECA CONTINUOUS Vitamin C/Biotin [Hair, Skin and Nails] 1 tab PO DAILY Cholecalciferol [Vitamin D3 (25 Mcg = 1000 Iu)] 1,000 unit PO DAILY HYDROcodone/APAP 5-325MG [[place] 5-325] 1 tab PO Q6H PRN PRN Reason: Pain Baclofen 10 mg PO TID Z-Quil (Sleep Aid) 1 tab PO HS Discontinued Omeprazole [PriLOSEC] 20 mg PO AC-BID Discharge Medication List Fenofibrate [Lofibra] 160 mg PO DAILY 01/09/14 [History] Gabapentin [Neurontin] 800 mg PO TID 01/09/14 [History] Levothyroxine Sodium [Synthroid] 50 mcg PO DAILY 01/09/14 [History] lamoTRIgine [LaMICtal] 100 mg PO BID 01/09/14 [History] traZODone HCL 100 mg PO HS 06/22/18 [History] DULoxetine HCL [Cymbalta] 30 mg PO TID 07/04/18 [History] Progesterone, Micronized [Progesterone] 200 mg PO HS 07/04/18 [History] Tolterodine Tartrate [Detrol LA] 4 mg PO DAILY 06/12/19 [History] Morphine W/ Bupivicaine Pump 1 applic INTRATHECA CONTINUOUS 07/29/20 [History] Cholecalciferol [Vitamin D3 (25 Mcg = 1000 Iu)] 1,000 unit PO DAILY 09/01/20 [History] HYDROcodone/APAP 5-325MG [[place] 5-325] 1 tab PO Q6H PRN 09/01/20 [History] Vitamin C/Biotin [Hair, Skin and Nails] 1 tab PO DAILY 09/01/20 [History] Baclofen 10 mg PO TID 11/18/20 [History] Z-Quil (Sleep Aid) 1 tab PO HS 11/18/20 [History] Omeprazole [PriLOSEC] 40 mg PO DAILY #14 cap 11/20/20 [Rx] Follow up Appointment(s)/Referral(s): Lulu Davis MD [STAFF PHYSICIAN] - 12/03/20 Patient Instructions/Handouts: Gastritis (DC) Discharge Disposition: HOME SELF-CARE
[2020-11-20 10:06] VITALS: BP 98/50; PULSE 72
== END 2020-11-20 10:25 | disposition home or self-care (01) ==
LOC: ORWHC2ENDO 08:27
PROVIDERS: ATTEND Surgery Plastic and Reconstructive Surgery
DX: K21.9 Gastro-esophageal reflux disease without esophagitis (principal); K29.50 Unspecified chronic gastritis without bleeding; K22.8 Other specified diseases of esophagus; K22.10 Ulcer of esophagus without bleeding; K31.9 Disease of stomach and duodenum, unspecified; E66.01 Morbid (severe) obesity due to excess calories; E78.5 Hyperlipidemia, unspecified; M19.90 Unspecified osteoarthritis, unspecified site; E07.9 Disorder of thyroid, unspecified; M96.1 Postlaminectomy syndrome, not elsewhere classified; G89.29 Other chronic pain; M62.81 Muscle weakness (generalized); F41.9 Anxiety disorder, unspecified; F31.9 Bipolar disorder, unspecified; Z68.35 Body mass index [BMI] 35.0-35.9, adult; Z85.828 Personal history of other malignant neoplasm of skin; Z96.89 Presence of other specified functional implants; Z79.891 Long term (current) use of opiate analgesic; Z87.19 Personal history of other diseases of the digestive system; Z98.890 Other specified postprocedural states; Z90.710 Acquired absence of both cervix and uterus; Z96.653 Presence of artificial knee joint, bilateral; Z86.79 Personal history of other diseases of the circulatory system; Z98.1 Arthrodesis status; Z87.891 Personal history of nicotine dependence; Z79.899 Other long term (current) drug therapy; Z79.890 Hormone replacement therapy; Z88.5 Allergy status to narcotic agent; Z88.8 Allergy status to other drugs, medicaments and biological substances; Z80.8 Family history of malignant neoplasm of other organs or systems
CPT/HCPCS: 88305; 43239; J2001; J2704

== ENCOUNTER 2020-12-12 08:07 | Day surgery (SDC) | payer MEDICARE ==
[2020-12-11 10:53] VITALS: BMI 35.6
--- NOTE | 2020-12-12 07:38 | P.GSHP ---
History of Present Illness H&P Date: 12/12/20 CHIEF COMPLAINT: GERD HISTORY OF PRESENT ILLNESS: The patient is a 55-year-old female who presents reports gastroesophageal reflux disease. Upper endoscopy was offered for further evaluation and management. PAST MEDICAL HISTORY: Please see list. PAST SURGICAL HISTORY: Please see list. MEDICATIONS: Please see list. ALLERGIES: Please see list. SOCIAL HISTORY: No illicit drug use FAMILY HISTORY: No reports of Crohn disease or ulcerative colitis. REVIEW OF ORGAN SYSTEMS: CONSTITUTIONAL: No reports of fevers or chills. GI: Denies any blood in stools or constipation. PHYSICAL EXAM: VITAL SIGNS: Stable GENERAL: Well-developed and pleasant in no acute distress. HEENT: No scleral icterus. Extraocular movements grossly intact. Moist buccal mucosa. NECK: Supple without lymphadenopathy. CHEST: Unlabored respirations. Equal bilateral excursions. CARDIOVASCULAR: Regular rate and rhythm. Distal 2+ pulses. ABDOMEN: Soft, nondistended. MUSCULOSKELETAL: No clubbing, cyanosis, or edema. ASSESSMENT: 1. Gastroesophageal reflux disease PLAN: 1. Recommend proceeding with an upper endoscopy Past Medical History Past Medical History: Cancer, GERD/Reflux, Hyperlipidemia, Osteoarthritis (OA), Thyroid Disorder Additional Past Medical History / Comment(s): Hx of skin cancer, sqamous cell. Post Laminectomy Syndrome, chronic pain- has pain pump. Constipation R/T medications, weak thigh muscles,uses cane, walker,w/c prn History of Any Multi-Drug Resistant Organisms: None Reported Past Surgical History: Back Surgery, Section, Hysterectomy, Joint Replacement Additional Past Surgical History / Comment(s): C-S x2. Brain surgery (noncavernous malformation), trial spinal cord stimulation done, LT Rotator cuff repair, OPEN SPINAL CORD STIMULATOR TRIAL PLACEMENT, Decompression Thoracic Laminectomy T8-T9, Pain clinic proc,lumbar nerve block, Pain pump insertion, Back surgery to remove rods. EGD. Ang Total Knees,fusion T*-S1 Past Anesthesia/Blood Transfusion Reactions: No Reported Reaction Smoking Status: Former smoker - Past Family History Father Family Medical History: Cancer Additional Family Medical History / Comment(s): Mesothelioma Mother Family Medical History: No Reported History Medications and Allergies Home Medications Medication Instructions Recorded Confirmed Type Fenofibrate [Lofibra] 160 mg PO DAILY 01/09/14 12/11/20 History Gabapentin [Neurontin] 800 mg PO TID 01/09/14 12/11/20 History Levothyroxine Sodium [Synthroid] 50 mcg PO QAM 01/09/14 12/11/20 History lamoTRIgine [LaMICtal] 100 mg PO BID 01/09/14 12/11/20 History traZODone HCL 50 mg PO HS PRN 06/22/18 12/11/20 History DULoxetine HCL [Cymbalta] 30 mg PO TID 07/04/18 12/11/20 History Progesterone, Micronized 200 mg PO HS 07/04/18 12/11/20 History [Progesterone] Tolterodine Tartrate [Detrol LA] 4 mg PO DAILY 06/12/19 12/11/20 History Morphine W/ Bupivicaine Pump 1 applic INTRATHECA CONTINUOUS 07/29/20 12/11/20 History HYDROcodone/APAP 5-325MG [[place] 1 tab PO Q6H PRN 09/01/20 12/11/20 History 5-325] Vitamin C/Biotin [Hair, Skin and 1 tab PO DAILY 09/01/20 12/11/20 History Nails] Baclofen 10 mg PO TID PRN 11/18/20 12/11/20 History Z-Quil (Sleep Aid) 1 tab PO HS PRN 11/18/20 12/11/20 History Omeprazole [PriLOSEC] 40 mg PO DAILY #14 cap 11/20/20 12/11/20 Rx Allergies Allergy/AdvReac Type Severity Reaction Status Date / Time oxycodone AdvReac Nausea & Verified 12/11/20 10:16 Vomiting
[~2020-12-12 08:07] MED LIST changes: -LIDOCAINE 1% (10MG/ML) FOR IV START INTRADERMA PRN
[2020-12-12 08:44] VITALS: TEMP 98.5
[2020-12-12] MEDS ORDERED: LIDOCAINE 1% (10MG/ML) FOR IV START INTRADERMA ONE (08:56)
[2020-12-12] MEDS ORDERED: LIDOCAINE 1% INJ 10MG/ML (20 ML MDV) ONE (09:17)
[2020-12-12] MEDS ORDERED: PROPOFOL 10 MG/ML 20 ML VIAL IV ONE (09:17)
--- NOTE | 2020-12-12 09:52 | P.PCN ---
Date of Procedure: 12/12/20 Description of Procedure: PREOPERATIVE DIAGNOSIS: Dysphagia. Gastroesophageal reflux disease Esophageal dysmotility Presbyesophagus POSTOPERATIVE DIAGNOSIS: Dysphagia. Gastroesophageal reflux disease Esophageal dysmotility Presbyesophagus OPERATION: Esophagogastroduodenoscopy with rigid dilator over the guidewire 57 Fr. SURGEON: Lulu Davis MD ANESTHESIA: MAC. INDICATIONS: The patient is a 55-year-old female who presents with a history of dysphagia. Benefits and risks of the procedure were described. Informed consent was obtained. DESCRIPTION: The patient was brought into the endoscopy suite and laid in the left lateral decubitus position. After a timeout was confirmed, the procedure was initiated. An Olympus gastroscope was passed and the stomach was entered. Mild gastritis was identified. The scope was advanced to the duodenum which was unremarkable. Next using an [place] rigid dilator, a guidewire was placed through the pediatric gastroscope. Next the scope was withdrawn. A 57-American rigid Palauan dilator was passed carefully along the posterior oropharynx to 45 cm and left in place for 2-3 minutes stretch. The dilator was withdrawn including the guidewire. The scope was reentered along the posterior oropharynx with no findings of full-thickness tear of the upper esophageal sphincter. No full-thickness injury was encountered. The GI tract was desufflated. The patient tolerated the procedure well. FINDINGS: Distal esophageal stricture without ulceration Palauan rigid dilator 57-American completed. Diffuse gastritis. RECOMMENDATIONS: Upper endoscopy as needed Recommend esophageal manometry with severity of dysmotility and esophageal spasm Plan - Discharge Summary Discharge Rx Participant: No New Discharge Prescriptions: Continue lamoTRIgine [LaMICtal] 100 mg PO BID Levothyroxine Sodium [Synthroid] 50 mcg PO QAM Gabapentin [Neurontin] 800 mg PO TID Fenofibrate [Lofibra] 160 mg PO DAILY traZODone HCL 50 mg PO HS PRN PRN Reason: sleep DULoxetine HCL [Cymbalta] 30 mg PO TID Progesterone, Micronized [Progesterone] 200 mg PO HS Tolterodine Tartrate [Detrol LA] 4 mg PO DAILY Morphine W/ Bupivicaine Pump 1 applic INTRATHECA CONTINUOUS Vitamin C/Biotin [Hair, Skin and Nails] 1 tab PO DAILY HYDROcodone/APAP 5-325MG [[place] 5-325] 1 tab PO Q6H PRN PRN Reason: Pain Baclofen 10 mg PO TID PRN PRN Reason: Pain Z-Quil (Sleep Aid) 1 tab PO HS PRN PRN Reason: sleep Omeprazole [PriLOSEC] 40 mg PO DAILY #14 cap Discharge Medication List Fenofibrate [Lofibra] 160 mg PO DAILY 01/09/14 [History] Gabapentin [Neurontin] 800 mg PO TID 01/09/14 [History] Levothyroxine Sodium [Synthroid] 50 mcg PO QAM 01/09/14 [History] lamoTRIgine [LaMICtal] 100 mg PO BID 01/09/14 [History] traZODone HCL 50 mg PO HS PRN 06/22/18 [History] DULoxetine HCL [Cymbalta] 30 mg PO TID 07/04/18 [History] Progesterone, Micronized [Progesterone] 200 mg PO HS 07/04/18 [History] Tolterodine Tartrate [Detrol LA] 4 mg PO DAILY 06/12/19 [History] Morphine W/ Bupivicaine Pump 1 applic INTRATHECA CONTINUOUS 07/29/20 [History] HYDROcodone/APAP 5-325MG [[place] 5-325] 1 tab PO Q6H PRN 09/01/20 [History] Vitamin C/Biotin [Hair, Skin and Nails] 1 tab PO DAILY 09/01/20 [History] Baclofen 10 mg PO TID PRN 11/18/20 [History] Z-Quil (Sleep Aid) 1 tab PO HS PRN 11/18/20 [History] Omeprazole [PriLOSEC] 40 mg PO DAILY #14 cap 11/20/20 [Rx] Follow up Appointment(s)/Referral(s): Lulu Davis MD [STAFF PHYSICIAN] - 12/24/20 Patient Instructions/Handouts: Esophageal Dilation (GEN), Esophageal Spasm (GEN) Discharge Disposition: HOME SELF-CARE
[2020-12-12 10:17] VITALS: RESP 16
[2020-12-12 10:24] VITALS: BP 119/74; PULSE 61
== END 2020-12-12 10:33 | disposition home or self-care (01) ==
LOC: ORWHC2ENDO 08:07
PROVIDERS: ATTEND Surgery Plastic and Reconstructive Surgery
DX: R13.10 Dysphagia, unspecified (principal); K21.9 Gastro-esophageal reflux disease without esophagitis; K22.4 Dyskinesia of esophagus; K22.8 Other specified diseases of esophagus; E78.5 Hyperlipidemia, unspecified; M19.90 Unspecified osteoarthritis, unspecified site; E07.9 Disorder of thyroid, unspecified; F32.9 Major depressive disorder, single episode, unspecified; Z85.828 Personal history of other malignant neoplasm of skin; Z87.891 Personal history of nicotine dependence; Z80.8 Family history of malignant neoplasm of other organs or systems; Z79.890 Hormone replacement therapy; Z79.899 Other long term (current) drug therapy; Z88.5 Allergy status to narcotic agent; Z98.1 Arthrodesis status
CPT/HCPCS: 43248; J2001; J2704; 43249

== ENCOUNTER → 2021-01-17 | Outpatient (CLI) | payer MEDICARE ==
--- NOTE | 2021-01-17 15:05 | XR ---
EXAMINATION TYPE: XR chest 2V DATE OF EXAM: 01/17/2021 COMPARISON: 05/02/2018 HISTORY: Cough TECHNIQUE: FINDINGS: Heart and mediastinum are normal. Lungs are clear. Diaphragm is normal. Bony thorax is inta ct. There is posterior fusion surgery at the thoracolumbar junction. IMPRESSION: Normal chest. No change.
== END | disposition home or self-care (01) ==
LOC: RADXRMAIN 12:37
PROVIDERS: ATTEND Family Medicine
DX: R05 Cough (principal)
CPT/HCPCS: 71046

== ENCOUNTER → 2021-01-22 | Outpatient (CLI) | payer MEDICARE ==
[2021-01-22 16:00] VITALS: BP 128/56; PULSE 114; RESP 16; TEMP 98.3; BMI 37.2
--- NOTE | 2021-01-22 16:24 | P.HPBAR ---
Bariatric H&P - History & Physicial H&P Date: 01/22/21 History & Physicial: Visit/CC: Initial Patient initial contact: Initial weight: 95.254 kg Initial weight in pounds: 210.00 Height: 5 ft 3 in Initial BMI: 37.2 Last weight: Current weight: 95.254 kg Current weight in pounds: 210.00 Current BMI: 37.2 Evans body weight (based on NIH guidelines): 52.163 kg Excess body weight loss: 0.0% The patient is a 55 year-old F who presents for Bariatric Assessment. DATE OF SERVICE: 01/22/2021 REASON FOR CONSULTATION: Initial bariatric evaluation. HISTORY OF PRESENT ILLNESS: Riya Juárez is a 55-year-old female who comes with life-long morbid obesity. As a result of her morbid obesity, she has developed severe osteoarthritis of the joints. She has both knee replacement from severe osteoarthritis of the knees. She ambulates with a wheelchair. She reports severe gastroesophageal reflux disease over 3 years. Her highest weight is at present. She has tried calorie restriction and exercise but now limited due to osteoarthritis, she is unable to manage her weight. She eats out of boredom. She has back pain with fusion T9 to S2 and her back pain is worse with weight gain. She is pending psych and PCP letter. She reports past trauma of being thrown from a horse and had a cage of the spine. She is looking into surgical options to address her morbid obesity including severe gastroesophageal reflux disease. At height of 5 feet 3 inches, her ideal body weight is 140 pounds. She comes in 210 pounds. Her body mass index is 37.2. She is 70 pounds overweight. PAST MEDICAL HISTORY: 1. Morbid obesity due to excess calories 2. Body mass index of 38.0, initial 3. End stage osteoarthritis of bilateral knees 4. Osteoarthritis lower back 5. Chronic pain syndrome 6. Gastroesophageal reflux disease 7. Hyperlipidemia 8. Hypothyroidism 9. Depressive disorder 10. Overactive bladder 11. Squamous cell cancer 12. Post laminectomy syndrome 13. Generalized anxiety disorder 14. Bipolar disorder 15. Depressive disorder 16. Borderline manic depression PAST SURGICAL HISTORY: 1. Spinal cage 2. Spine fusion, T9 to S2 3. section 4. Upper endoscopy 5. Brain surgery 6. Left rotator cuff repair 7. Open spinal cord stimulator 8. Decompression laminectomy 9. Total bilateral knee replacement HOME MEDICATIONS: Home Medications Medication Instructions Recorded Confirmed Fenofibrate [Lofibra] 160 mg PO DAILY 01/09/14 01/22/21 Gabapentin [Neurontin] 800 mg PO TID 01/09/14 01/22/21 Levothyroxine Sodium [Synthroid] 50 mcg PO QAM 01/09/14 01/22/21 lamoTRIgine [LaMICtal] 100 mg PO BID 01/09/14 01/22/21 traZODone HCL 50 mg PO HS PRN 06/22/18 01/22/21 DULoxetine HCL [Cymbalta] 30 mg PO TID 07/04/18 01/22/21 Progesterone, Micronized 200 mg PO HS 07/04/18 01/22/21 [Progesterone] Tolterodine Tartrate [Detrol LA] 4 mg PO DAILY 06/12/19 01/22/21 Morphine W/ Bupivicaine Pump 1 applic INTRATHECA CONTINUOUS 07/29/20 01/22/21 HYDROcodone/APAP 5-325MG [[place] 1 tab PO Q6H PRN 09/01/20 01/22/21 5-325] Vitamin C/Biotin [Hair, Skin and 1 tab PO DAILY 09/01/20 01/22/21 Nails] Baclofen 10 mg PO TID PRN 11/18/20 01/22/21 Z-Quil (Sleep Aid) 1 tab PO HS PRN 11/18/20 01/22/21 Previous Rx's Medication Instructions Recorded Omeprazole [PriLOSEC] 40 mg PO DAILY #14 cap 11/20/20 ALLERGIES: Allergies Allergy/AdvReac Type Severity Reaction Status Date / Time oxycodone AdvReac Nausea & Verified 01/22/21 16:54 Vomiting SOCIAL HISTORY: Past tobacco use. FAMILY HISTORY: No family history of ulcerative colitis disease or Crohn's disease. Family history of morbid obesity. No lupus in the family. No reports of stomach or esophageal cancer. REVIEW OF ORGAN SYSTEMS: CONSTITUTIONAL: At height of 5 feet 3 inches, her ideal body weight is 140 pounds. She comes in 210 pounds. Her body mass index is 37.2. She is 70 pounds overweight. HEENT: Denies any active troubles with vision or hearing. . ENDOCRINE: Denies diabetes. Has hypothyroidism. CARDIOVASCULAR: Past reports of palpitations or heart attacks or chest pain. RESPIRATORY: Denies chronic obstructive pulmonary disease. GASTROINTESTINAL: Denies any bright red blood per rectum. No diarrhea. No constipation. Has gastroesophageal reflux disease. GENITOURINARY: Has bladder urgency. No recent blood in urine MUSCULOSKELETAL: Has lower back pain and joint pain. Has osteoarthritis of the knees. She ambulates with a wheelchair. NEURO: No headaches. Has chronic pain syndromes PSYCH: Has depression. No suicidal ideation. Has anxiety, bipolar disorder. RHEUMATOLOGIC: No lupus. No rheumatoid arthritis. HEMATOLOGIC: Denies any abnormal bleeding or bruising. SKIN: No rash. Past skin cancer. PHYSICAL EXAM: VITAL SIGNS: Height 5 foot 3 inches, weight 210 pounds. BMI 37.2 Vital Signs Temp 98.3 F 01/22/21 15:54 Pulse 114 H 01/22/21 15:54 Resp 16 01/22/21 15:54 BP 128/56 01/22/21 15:54 Pulse Ox GENERAL: Well-developed in no acute distress. HEENT: No scleral icterus. Extraocular movements grossly intact. Hears conversational speech. No nasal drainage. NECK: Supple without lymphadenopathy. CHEST: Nonlabored respirations with equal bilateral excursions. CARDIOVASCULAR: Tachycardic. Distal 2+ pulses. ABDOMEN: Obese, soft, nontender, nondistended. MUSCULOSKELETAL: No clubbing, cyanosis. Ambulated with cane/wheelchair. NEURO: No focal or lateralizing signs. Cranial nerves 2 through 12 grossly within normal limits. PSYCH: Appropriate affect. Alert and oriented to person, place and time. SKIN: Good skin turgor. Well perfused. STUDIES: Barium swallow reviewed with moderate tertiary contractions and presence of reflux. This is my independent interpretation. REPORTS: Barium swallow report confirms tertiary contractions and presence of hiatal hernia. EGD FINDINGS: Distal esophageal stricture without ulceration Citizen Of [place] rigid dilator 57-Pashto completed. Squamocolumnar junction 37 cm from the incisors. Diaphragmatic hiatus at 37 cm. Hill grade 1 lower esophageal valve. LA grade A erosive esophagitis. No active duodenitis. Chronic gastritis, moderate Tertiary contractions along the esophagus consistent with presbyesophagus Final Pathologic Diagnosis GASTRIC ANTRUM, BIOPSY: Reactive gastropathy. Helicobacter pylori organisms are not identified on routine H+E sections. ASSESSMENT: 1. Morbid obesity due to excess calories 2. Body mass index of 37.2, initial 3. End stage osteoarthritis of bilateral knees 4. Osteoarthritis lower back 5. Chronic pain syndrome 6. Gastroesophageal reflux disease 7. Hyperlipidemia 8. Hypothyroidism 9. Depressive disorder 10. Overactive bladder 11. Squamous cell cancer 12. Post laminectomy syndrome 13. Generalized anxiety disorder 14. Bipolar disorder 15. Depressive disorder 16. Borderline manic depression 17. Presbyesophagus 18. Dietary surveillance and counseling PLAN: 1. Surgical options including a band, gastric bypass, sleeve gastrectomy were described in detail. Alternatives such as gastric balloon including duodenal switch were described. She has severe gastroesophageal reflux disease. Recommend assessment for the gastric bypass. 2. The [place] bariatric surgical collaborative data and outcomes calculator were described with surgical options. 3. Recommend a bariatric metabolic panel to evaluate for micro- including macronutrient deficiencies. 4. For history of daytime somnolence, recommend evaluation and treatment for sleep apnea. 5. Dietary surveillance and counseling was reviewed. Increased protein intake over 65 grams daily advised. 6. Will need cardiac risk assessment. 7. Recommend medical risk assessment. 8. Psych assessment per insurance guidelines. 9. Upper endoscopy completed. 10. Recommend 12-lead EKG. 11. She is pending psych and PCP letter. 12. Recommend urine drug screen Thank you for this consultation. Past Medical History Past Medical History: Cancer, GERD/Reflux, Hyperlipidemia, Osteoarthritis (OA), Thyroid Disorder Additional Past Medical History / Comment(s): Hx of skin cancer, sqamous cell. Post Laminectomy Syndrome, chronic pain- has pain pump. Constipation R/T medications, weak thigh muscles,uses cane, walker,w/c prn History of Any Multi-Drug Resistant Organisms: None Reported Past Surgical History: Back Surgery, Section, Hysterectomy, Joint Replacement Additional Past Surgical History / Comment(s): C-S x2. Brain surgery (noncavernous malformation), trial spinal cord stimulation done, LT Rotator cuff repair, OPEN SPINAL CORD STIMULATOR TRIAL PLACEMENT, Decompression Thoracic Laminectomy T8-T9, Pain clinic proc,lumbar nerve block, Pain pump in sertion, Back surgery to remove rods. EGD. Ang Total Knees,fusion T*-S1 Past Anesthesia/Blood Transfusion Reactions: No Reported Reaction Past Psychological History: Anxiety, Bipolar, Depression Additional Psychological History / Comment(s): HAS BORDERLINE MANIC DEPRESSION, "under control" Smoking Status: Former smoker Past Alcohol Use History: None Reported Additional Past Alcohol Use History / Comment(s): Quit smoking 2011, Smoked 20 years on/off. Past Drug Use History: Marijuana Additional Drug Use History / Comment(s): uses marijuana rarely-twice per year. - Past Family History Father Family Medical History: Cancer Additional Family Medical History / Comment(s): Mesothelioma Mother Family Medical History: No Reported History Surgical - Exam Vital Signs Temp Pulse Resp BP 98.3 F 114 H 16 128/56 01/22/21 15:54 01/22/21 15:54 01/22/21 15:54 01/22/21 15:54 Bariatric Checklist Checklist: Plan: Checklist: EGD: 1. Hiatal hernia: 2. H. Pylori: HgbA1c: Vitamin D: Smoking: Former smoker Primary care physician referral: Lucho Psychiatry clearance: Cardiology clearance: Sleep study: Diet journal: VTE risk score: VTE risk level: Rehab needs at discharge:
== END ==
LOC: BARWHC3 14:50
PROVIDERS: ATTEND Surgery Plastic and Reconstructive Surgery
DX: E66.01 Morbid (severe) obesity due to excess calories (principal); Z68.37 Body mass index [BMI] 37.0-37.9, adult; M17.0 Bilateral primary osteoarthritis of knee; M47.9 Spondylosis, unspecified; E78.5 Hyperlipidemia, unspecified; E03.9 Hypothyroidism, unspecified; N32.81 Overactive bladder; C80.1 Malignant (primary) neoplasm, unspecified; M96.1 Postlaminectomy syndrome, not elsewhere classified; F41.9 Anxiety disorder, unspecified; F31.9 Bipolar disorder, unspecified; K22.8 Other specified diseases of esophagus; Z71.3 Dietary counseling and surveillance; Z88.5 Allergy status to narcotic agent; Z79.899 Other long term (current) drug therapy; Z87.891 Personal history of nicotine dependence
CPT/HCPCS: 99203

== ENCOUNTER → 2021-01-30 | Outpatient (CLI) | payer MEDICARE ==
[2021-01-30 11:18] LABS: Partial Thromboplastin Time 22.1 sec (22.0-30.0); Prothrombin Time 10.7 sec (9.0-12.0)
[2021-01-30 16:16] LABS: HCT 40.2 % (37.2-46.3); HGB 12.9 g/dL (12.0-15.0); MCH 29.1 pg (27.0-32.0); MCHC 32.1 g/dL (32.0-37.0); MCV 90.7 fL (80.0-97.0); Mean Platelet Volume 9.6 fL (9.5-12.2); Platelet Count 398 X 10*3/uL (140-440); RBC 4.43 X 10*6/uL (4.10-5.20); RDW 12.6 % (11.5-14.5); WBC 7.47 X 10*3/uL (4.50-10.00)
[2021-01-30 16:28] LABS: % Iron Saturation 23.04 (12.00-45.00); African American GFR (CKD) 72.4 (60.0-200.0); Albumin 4.6 g/dL (3.80-4.90); Albumin/Globulin Ratio 1.92 (1.60-3.17); Anion Gap 7.6 mmol/L (4.00-12.00); Calcium 10.2 mg/dL (8.7-10.3); Carbon Dioxide 31.4 mmol/L (21.6-31.8); Chol/HDL Ratio 3.92; Globulin 2.4 g/dL (1.6-3.3); Magnesium 1.8 mg/dL (1.5-2.4); Non-African American GFR(CKD) 62.5 (60.0-200.0); Phosphorus 2.9 mg/dL (2.4-5.1); Potassium 4.8 mmol/L (3.5-5.5); Total Bilirubin 0.5 mg/dL (0.3-1.2)
[2021-01-30 17:03] LABS: Folate, Serum 13.8 ng/mL
[2021-01-30 18:43] LABS: Hemoglobin A1C 6.6 % (4.0-6.0)
[2021-01-31 13:19] LABS: Zinc, Serum 88 ug/dL (60-130)
== END | disposition home or self-care (01) ==
LOC: LABWHC1 09:30
PROVIDERS: ATTEND Surgery Plastic and Reconstructive Surgery
DX: E66.01 Morbid (severe) obesity due to excess calories (principal); E89.1 Postprocedural hypoinsulinemia; D50.8 Other iron deficiency anemias; K90.89 Other intestinal malabsorption; E55.9 Vitamin D deficiency, unspecified; K74.1 Hepatic sclerosis; N19 Unspecified kidney failure; K50.90 Crohn's disease, unspecified, without complications; R94.31 Abnormal electrocardiogram [ECG] [EKG]; Z98.84 Bariatric surgery status; Z71.51 Drug abuse counseling and surveillance of drug abuser
CPT/HCPCS: 84255; 84134; 84425; 80061; 80053; 82607; 82728; 82525; 82746; 83540; 83550; 83735; 84100; 84443; 84590; 84630; 85027; 85610; 85730; 82306; 80307 ×2; 83970; 83036; 93005; 36415; G0482

== ENCOUNTER → 2021-04-10 | Outpatient (CLI) | payer MEDICARE ==
--- NOTE | 2021-04-10 09:05 | CT ---
EXAMINATION TYPE: CT brain wo con DATE OF EXAM: 04/10/2021 COMPARISON: 08/19/2013 INDICATION: Rt Paresthesia of skin DLP: 1072.3 mGycm, Automated exposure control for dose reduction was used. CONTRAST: None CT of the brain is performed utilizing 3 mm thick sections through the posterior fossa and 3 mm thick sections through the remaining calvarium. Study is performed within 24 hours of arrival to the hosp ital. No abnormal hyperdensity is present to suggest an acute intracranial hemorrhage. No mass lesion is evident. No acute infarcts are evident. Postsurgical change is along the right parietal cortex present with ex tension to lateral ventricle. This was present previously. Ventricles and sulci are appropriate for the patient age. There is mild prominence of extra-axial sp kannan. Paranasal sinuses and mastoid air cells within the [id number] are clear. IMPRESSIONS: 1. Small right parietal postsurgical change. 2. No acute intracranial process.
== END | disposition home or self-care (01) ==
LOC: RADCTMAIN 06:20
PROVIDERS: ATTEND Family Medicine
DX: S09.90XA Unspecified injury of head, initial encounter (principal); R20.2 Paresthesia of skin; X58.XXXA Exposure to other specified factors, initial encounter
CPT/HCPCS: 70450

== ENCOUNTER → 2021-04-22 | Outpatient (CLI) | payer MEDICARE ==
[2021-04-22 12:25] LABS: INR 1.1 (<1.2); Partial Thromboplastin Time 23.1 sec (22.0-30.0); Prothrombin Time 11.4 sec (9.0-12.0)
[2021-04-22 13:00] LABS: Amorphous Sediment,Urine Moderate /hpf; Appearance,Urine Cloudy (Clear); Bacteria,Urine Occasional /hpf; Bilirubin,Urine Negative (Negative); Blood,Urine Negative (Negative); Color,Urine Yellow; Glucose,Urine (UA) Negative (Negative); Hyaline Casts,Urine 31 /lpf (0-2); Ketones,Urine Trace (Negative); Leukocyte Esterase,Urine Trace (Negative); Mucus,Urine Few /hpf; Nitrite,Urine Negative (Negative); PH, Urine 5.5 (5.0-8.0); Protein,Urine 1+ (Negative); RBC,Urine 78 /hpf (0-5); Specific Gravity,Urine 1.037 (1.001-1.035); Squamous Epithelial Cell,Urine 1 /hpf (0-4); WBC,Urine 12 /hpf (0-5)
[2021-04-22 18:34] LABS: Basophils # (A) 0.04 X 10*3/uL (0.00-0.10); Basophils % (A) 0.8 %; HCT 40.5 % (37.2-46.3); HGB 13.4 g/dL (12.0-15.0); Lymphocytes % (A) 40.3 %; MCH 29.7 pg (27.0-32.0); MCHC 33.1 g/dL (32.0-37.0); MCV 89.8 fL (80.0-97.0); Mean Platelet Volume 10.2 fL (9.5-12.2); Monocytes # (A) 0.44 X 10*3/uL (0.20-1.00); Monocytes % (A) 8.9 %; Neutrophils # (A) 2.36 X 10*3/uL (1.80-7.70); Neutrophils % (A) 47.6 %; Platelet Count 349 X 10*3/uL (140-440); RBC 4.51 X 10*6/uL (4.10-5.20); RDW 12.1 % (11.5-14.5); WBC 4.96 X 10*3/uL (4.50-10.00)
[2021-04-23 04:06] LABS: African American GFR (CKD) 72.4 (60.0-200.0); Albumin 4.5 g/dL (3.80-4.90); Albumin/Globulin Ratio 1.5 (1.60-3.17); Calcium 9.8 mg/dL (8.7-10.3); Non-African American GFR(CKD) 62.5 (60.0-200.0); Potassium 4.1 mmol/L (3.5-5.5); Total Bilirubin 0.3 mg/dL (0.2-1.2); Total Protein 7.5 g/dL (6.2-8.2)
== END | disposition home or self-care (01) ==
LOC: LABWHC1 11:35
PROVIDERS: ATTEND Neurological Surgery
DX: M43.25 Fusion of spine, thoracolumbar region (principal); M96.0 Pseudarthrosis after fusion or arthrodesis; Z98.890 Other specified postprocedural states
CPT/HCPCS: 36415; 80053; 81001; 85025; 85610; 85730; 87070; 87086

== ENCOUNTER → 2021-10-14 | Outpatient (CLI) | payer MEDICARE ==
[2021-10-14 18:19] LABS: HCT 40.7 % (37.2-46.3); HGB 13.2 g/dL (12.0-15.0); MCH 28.7 pg (27.0-32.0); MCHC 32.4 g/dL (32.0-37.0); MCV 88.5 fL (80.0-97.0); Mean Platelet Volume 10.5 fL (9.5-12.2); Platelet Count 304 X 10*3/uL (140-440); RDW 12.2 % (11.5-14.5)
[2021-10-14 19:56] LABS: African American GFR (CKD) 81.7 (60.0-200.0); Albumin 4.4 g/dL (3.8-4.9); Albumin/Globulin Ratio 1.63 (1.60-3.17); Anion Gap 12.8 mmol/L (10.00-18.00); BUN/Creat Ratio 16.44 Ratio (12.00-20.00); Blood Urea Nitrogen 14.8 mg/dL (9.0-27.0); Calcium 10.1 mg/dL (8.7-10.3); Carbon Dioxide 25.2 mmol/L (20.0-27.5); Globulin 2.7 g/dL (1.6-3.3); Non-African American GFR(CKD) 70.5 (60.0-200.0); Potassium 4.3 mmol/L (3.5-5.5); T4, Free (Free Thyroxine) 1.44 ng/dL (0.800-1.800); Total Bilirubin 0.3 mg/dL (0.30-1.20); Total Protein 7.1 g/dL (6.2-8.2)
== END | disposition home or self-care (01) ==
LOC: LABWHC1 11:18
PROVIDERS: ATTEND Internal Medicine Endocrinology, Diabetes & Metabolism
DX: N30.00 Acute cystitis without hematuria (principal); R53.83 Other fatigue
CPT/HCPCS: 36415; 80053; 82533; 82607; 84146; 84439; 84443; 84481; 85027

== ENCOUNTER → 2021-11-18 | Outpatient (CLI) | payer MEDICARE ==
[2021-11-18 10:16] VITALS: BP 132/81; PULSE 89; RESP 16; TEMP 98.1
--- NOTE | 2021-11-18 11:18 | P.HPOB ---
History of Present Illness H&P Date: 11/18/21 Chief Complaint: The patient is here for her routine gynecologic exam. This is a 56-year-old with an LMP of 1999. She is status post TRUDI and BSO for benign reasons. The patient is here to establish with this office. It has been about 4 years since her last pelvic exam. She thinks she had a yeast infection starting at the end of September. She used [id number]-[id number] medications and also used Diflucan. She states her symptoms are now resolving. At the time she thought she had a yeast infection because of a discharge and itching. She is otherwise without gynecologic complaints. Review of Systems She states she has gained about 30 pounds over the past year. She attributes this to her difficulty exercising because of her back problems. Respiratory: Occasional shortness of breath. She denies cardiac or GI problems. Past Medical History Past Medical History: Cancer, GERD/Reflux, Hyperlipidemia, Osteoarthritis (OA), Thyroid Disorder Additional Past Medical History / Comment(s): Hx of skin cancer, sqamous cell. Post Laminectomy Syndrome, chronic pain- has pain pump. Type 2 diabetes. 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 History of Any Multi-Drug Resistant Organisms: None Reported Past Surgical History: Back Surgery, Section, Hysterectomy, Joint Replacement Additional Past Surgical History / Comment(s): C-S x2. TRUDI with unilateral oophorectomy in 1999. Later unilateral salpingo-oophorectomy for benign reasons. Brain surgery (noncavernous malformation), trial spinal cord stimulation done, LT Rotator cuff repair, OPEN SPINAL CORD STIMULATOR TRIAL PLACEMENT, Decompression Thoracic Laminectomy T8-T9, Pain clinic proc,lumbar nerve block, Pain pumpinsertion, Back surgery to remove rods. EGD. Ang Total Knees,fusion T*-S1. Colonoscopy approximately 2018. Past Anesthesia/Blood Transfusion Reactions: No Reported Reaction Past Psychological History: Anxiety, Bipolar, Depression Additional Psychological History / Comment(s): HAS BORDERLINE MANIC DEPRESSION, "under control" Smoking Status: Former smoker Past Alcohol Use History: None Reported Additional Past Alcohol Use History / Comment(s): Quit smoking 2011, Smoked 20 years on/off. Previous heavy drinker but denies use after 2019. Past Drug Use History: Marijuana Additional Drug Use History / Comment(s): uses marijuana rarely-twice per year. - Past Family History Father Family Medical History: Cancer Additional Family Medical History / Comment(s): Mesothelioma Mother Additional Family Medical History / Comment(s): Osteoporosis and possible schizophrenia. Maternal aunt had breast cancer. Medications and Allergies Home Medications Medication Instructions Recorded Confirmed Type Fenofibrate [Lofibra] 160 mg PO DAILY 01/09/14 01/22/21 History Gabapentin [Neurontin] 800 mg PO TID 01/09/14 01/22/21 History Levothyroxine Sodium [Synthroid] 50 mcg PO QAM 01/09/14 01/22/21 History lamoTRIgine [LaMICtal] 100 mg PO BID 01/09/14 01/22/21 History traZODone HCL 50 mg PO HS PRN 06/22/18 01/22/21 History DULoxetine HCL [Cymbalta] 30 mg PO TID 07/04/18 01/22/21 History Tolterodine Tartrate [Detrol LA] 4 mg PO DAILY 06/12/19 01/22/21 History Morphine W/ Bupivicaine Pump 1 applic INTRATHECA CONTINUOUS 07/29/20 01/22/21 History HYDROcodone/APAP 5-325MG [[place] 1 tab PO Q6H PRN 09/01/20 01/22/21 History 5-325] Vitamin C/Biotin [Hair, Skin and 1 tab PO DAILY 09/01/20 01/22/21 History Nails Chew] Z-Quil (Sleep Aid) 1 tab PO HS PRN 11/18/20 01/22/21 History Omeprazole [PriLOSEC] 40 mg PO DAILY #14 cap 11/20/20 01/22/21 Rx Empagliflozin [Jardiance] 10 mg PO DAILY 11/18/21 11/18/21 History Melatonin 10 mg PO DAILY 11/18/21 11/18/21 History Sennosides [Senna] 8.6 mg PO DAILY 11/18/21 11/18/21 History flaxseed oiL [Almo-3 Flaxseed Oil] 1,000 mg PO DAILY 11/18/21 11/18/21 History metFORMIN HCL [Glucophage XR] 500 mg PO DAILY 11/18/21 11/18/21 History Allergies Allergy/AdvReac Type Severity Reaction Status Date / Time oxycodone AdvReac Nausea & Verified 11/18/21 10:04 Vomiting Exam Vital Signs Temp Pulse Resp BP Pulse Ox 11/18/21 10:04 98.1 F 89 16 132/81 96 Intake and Output 11/17/21 11/18/21 11/18/21 22:59 06:59 14:59 Other: Weight 96.615 kg Height 5 feet 3 inches, weight 213 pounds, BMI 37.7. This is a well-developed well-nourished white female who is alert and oriented times 3 in no acute distress. HEENT: Within normal limits. NECK: Supple without mass or thyromegaly. CHEST AND LUNGS: Clear to auscultation. HEART: Regular rate and rhythm. BREASTS: Are without mass or discharge. AXILLARY EXAM: Negative for adenopathy. BACK: Negative for CVA tenderness. ABDOMEN: Soft, nontender, without palpable masses. Her pain pump is palpable in the left lower quadrant at the lateral aspect. PELVIC EXAM: External genitalia appears normal with minimal atrophy. Vagina appears normal with minimal atrophy. There is no evidence of prolapse. Bimanual examination is negative for mass or tenderness. RECTAL EXAM: Rectovaginal exam is negative for mass or tenderness and is negative for occult blood. EXTREMITIES: Nontender. IMPRESSION: 1. 56-year-old menopausal female status post TRUDI/BSO for benign reasons with normal gynecologic exam. 2. History of genital herpes with rare outbreaks. 3. No evidence of vaginitis at this time. She may have self treated a yeast infection last month. PLAN: 1. Pap smears have been discontinued. 2. Self breast awareness was discussed with the patient. We have also discussed symptoms associated with inflammatory breast cancer. 3. Screening mammogram is due and the order slip was given to the patient for this. 4. Osteoporosis prevention was discussed. I have stressed the importance of adequate calcium, vitamin D and regular exercise. Recommended amounts of calcium and vitamin D were also discussed. 5. She will use Valtrex episodically if she has outbreaks. She states she has Valtrex at home. 6. She was advised to return in one year for her annual well woman exam.
== END | disposition home or self-care (01) ==
LOC: WWCWWP 09:41
PROVIDERS: ATTEND Obstetrics & Gynecology
DX: Z53.9 Procedure and treatment not carried out, unspecified reason (principal)

== ENCOUNTER → 2022-01-07 | Outpatient (CLI) | payer MEDICARE ==
--- NOTE | 2022-01-08 13:18 | MM ---
Reason for exam: screening (asymptomatic). Last mammogram was performed 1 year and 2 months ago. History: Patient is postmenopausal and has history of other cancer at age 35. Family history of breast cancer in maternal aunt at age 40, breast cancer in maternal aunt, and breast cancer in grandmother at age 40. Took estrogen for 2 years. Took other hormone beginning at age 56. Physical Findings: A clinical breast exam by your physician is recommended on an annual basis and results should be correlated with mammographic findings. MG 3D Screening Mammo W/Cad Bilateral CC and MLO view(s) were taken. Prior study comparison: November 01, 2020, bilateral MG screening mammo w CAD. September 01, 2019, bilateral MG screening mammo w CAD. There are scattered fibroglandular densities. There are benign appearing round calcifications bilaterally. There is no discrete abnormality. ASSESSMENT: Benign, BI-RAD 2 RECOMMENDATION: Routine screening mammogram of both breasts in 1 year.
== END | disposition home or self-care (01) ==
LOC: RADMAMWWP 12:51
PROVIDERS: ATTEND Obstetrics & Gynecology
DX: Z12.31 Encounter for screening mammogram for malignant neoplasm of breast (principal)
CPT/HCPCS: 77063; 77067

== ENCOUNTER → 2022-02-19 | Outpatient (CLI) | payer MEDICARE ==
--- NOTE | 2022-02-20 06:24 | MR ---
EXAMINATION TYPE: MR greg/malcolm wo con DATE OF EXAM: 02/19/2022 COMPARISON: 04/15/2018 HISTORY: Back pain. Previous surgery. Multiplanar multiecho imaging of the thoracic and lumbar spine with no contrast. Thoracic Normal alignment. There is considerable metal artifact obscuring the lower thoracic spine. There is p osterior fusion surgery. There are metal rods and screws. The top of the fusion is at T10 level. Ther e is a very slight anterior subluxation of T9 in relation to T10. There is some narrowing of the T9-1 0 disc space. Visualized thoracic spinal cord has normal signal pattern. No evidence of a mass. No ev idence of thoracic paraspinal mass. The metal artifact is so extensive that there is virtually no information about the spinal canal in the lumbar region. No sign of a lumbar paraspinal mass. The sacroiliac joints appear intact. The fusi on extends from T10 to S1 vertebra. The best visualization of the spinal canal is on the T2 sagittal images which show normal alignment of the vertebra and no sign of a compression fracture. Spinal juana l is not really visualized at the T11 and T12 level. IMPRESSION: Multilevel posterior fusion surgery. Within the limitations of the exam I do not see evidence of a si gnificant complicating process. The T9-10 disc space has some disc space narrowing which is new veronica red to old exam and there is some mild subluxation which is increased compared to old exam..
== END | disposition home or self-care (01) ==
LOC: RADMRIMAIN 08:55
PROVIDERS: ATTEND Psychiatry & Neurology Pain Medicine
DX: M51.36 Other intervertebral disc degeneration, lumbar region (principal); M54.14 Radiculopathy, thoracic region; B19.9 Unspecified viral hepatitis without hepatic coma; Z97.8 Presence of other specified devices
CPT/HCPCS: 72146; 72148

== ENCOUNTER → 2022-06-05 | Outpatient (CLI) | payer MEDICARE ==
--- NOTE | 2022-06-05 11:32 | XR ---
EXAMINATION TYPE: XR chest 2V DATE OF EXAM: 06/05/2022 11:19 AM COMPARISON: Chest radiographs from 01/17/2021 TECHNIQUE: XR chest 2V Frontal and lateral views of the chest. CLINICAL INDICATION:Female, 56 years old with history of [id number],[id number]; FINDINGS: Lungs/Pleura: There is no evidence of pleural effusion, focal consolidation, or pneumothorax. Pulmonary vascularity: Unremarkable. Heart/mediastinum: Cardiomediastinal silhouette is unremarkable. Musculoskeletal: No acute osseous pathology. Posterior fusion surgery at the thoracolumbar junction r edemonstrated. Other: Surgical clips upper abdomen. IMPRESSION: No acute cardiopulmonary disease/process. No significant change from prior examination.
== END | disposition home or self-care (01) ==
LOC: LABWHC1 10:47
PROVIDERS: ATTEND Internal Medicine Sleep Medicine
DX: R05.9 Cough, unspecified (principal); R06.02 Shortness of breath; B44.81 Allergic bronchopulmonary aspergillosis
CPT/HCPCS: 36415; 71046; 86003; 87636

== ENCOUNTER → 2022-08-12 | Outpatient (CLI) | payer MEDICARE ==
[2022-08-12 14:59] LABS: ALT 14 U/L (8-44); AST 18 U/L (13-35); African American GFR (CKD) 78.7 (60.0-200.0); Albumin 4.5 g/dL (3.8-4.9); Albumin/Globulin Ratio 1.75 (1.60-3.17); Alkaline Phosphatase 68 U/L (41-126); BUN/Creat Ratio 13.65 Ratio (12.00-20.00); Blood Urea Nitrogen 12.6 mg/dL (9.0-27.0); Calcium 9.8 mg/dL (8.7-10.3); Carbon Dioxide 29.1 mmol/L (20.0-27.5); Chloride 101 mmol/L (96-109); Chol/HDL Ratio 3.86 Ratio; Globulin 2.6 g/dL (1.6-3.3); Glucose 96 mg/dL (70-110); LDL Cholesterol,Calculated 133.8 mg/dL (0.0-131.0); Non-African American GFR(CKD) 67.9 (60.0-200.0); Potassium 4.6 mmol/L (3.5-5.5); Sodium 140 mmol/L (135-145); Total Protein 7.1 g/dL (6.2-8.2); VLDL Calculation 15.12 mg/dL (5.00-40.00)
[2022-08-12 20:12] LABS: Microalbumin Creatinine Ratio <30 mg/g Creat (0-30)
== END | disposition home or self-care (01) ==
LOC: LABWHC1 07:32
PROVIDERS: ATTEND Internal Medicine Endocrinology, Diabetes & Metabolism
DX: E11.65 Type 2 diabetes mellitus with hyperglycemia (principal)
CPT/HCPCS: 36415; 80053; 80061; 82043; 82570; 83036; 84443

== ENCOUNTER → 2023-03-08 | Outpatient (CLI) | payer MEDICARE ==
[2023-03-08 15:02] LABS: Appearance,BF Hazy
[2023-03-08 15:03] LABS: Nucleated Cells, Body Fluid 10 /uL; RBC, Body Fluid 4865 /uL
== END | disposition home or self-care (01) ==
LOC: LABPRL 11:51
PROVIDERS: ATTEND Orthopaedic Surgery
DX: M25.461 Effusion, right knee (principal); M25.561 Pain in right knee; Z47.1 Aftercare following joint replacement surgery; Z96.651 Presence of right artificial knee joint
CPT/HCPCS: 87070; 87075; 87205; 89050

== ENCOUNTER → 2023-03-09 | Outpatient (CLI) | payer MEDICARE ==
[2023-03-09 16:01] LABS: Basophils # (A) 0.04 X 10*3/uL (0.00-0.10); Basophils % (A) 0.7 %; Eosinophils # (A) 0.16 X 10*3/uL (0.04-0.35); Eosinophils % (A) 2.8 %; HCT 40.8 % (37.2-46.3); HGB 13.3 d/dL (12.0-15.0); Lymphocytes # (A) 2.14 X 10*3/uL (0.90-5.00); Lymphocytes % (A) 36.8 %; MCH 29.4 pg (27.0-32.0); MCHC 32.6 d/dL (32.0-37.0); MCV 90.3 FL (80.0-97.0); Mean Platelet Volume 9.9 FL (9.5-12.2); Monocytes # (A) 0.53 X 10*3/uL (0.20-1.00); Monocytes % (A) 9.1 %; NRBC Per 100 WBC 0 X 10*3/uL (0.00-0.01); Neutrophils # (A) 2.92 X 10*3/uL (1.80-7.70); Neutrophils % (A) 50.3 %; Platelet Count 351 X 10*3/uL (140-440); RBC 4.52 X 10*6/uL (4.10-5.20); RDW 12.3 % (11.5-14.5); WBC 5.81 X 10*3/uL (4.50-10.00)
[2023-03-09 17:17] LABS: ALT 22 U/L (8-44); AST 17 U/L (13-35); BUN/Creat Ratio 14.44 Ratio (12.00-20.00); C Reactive Protein <0.30 mg/dL (0.00-0.80); Calcium 10.4 mg/dL (8.7-10.3); Carbon Dioxide 27.1 mmol/L (21.6-31.8); Chloride 102 mmol/L (96-109); Creatine Kinase 83 U/L (26-186); Glucose 100 mg/dL (70-110); Potassium 5.2 mmol/L (3.5-5.5); Rheumatoid Factor, Qnt <15 IU/mL (0-15); Sodium 140 mmol/L (135-145); T4, Free (Free Thyroxine) 1.36 ng/dL (0.80-1.80); Uric Acid 4.4 mg/dL (2.9-7.7)
[2023-03-09 18:26] LABS: Erythrocyte Sedimentation Rate 4 mm/Hr (0-30)
[2023-03-09 19:49] LABS: Cyclic Citrull Pep IgG Unit <1.5 U/mL (<=3.9); Cyclic Citrullinated Pep IgG Negative
[2023-03-10 09:37] LABS: Angiotensin-1 Converting Enz. 16 U/L (8-52)
[2023-03-10 13:14] LABS: HLA B27 NEGATIVE
[2023-03-10 14:21] LABS: ANA Pattern SPK
== END | disposition home or self-care (01) ==
LOC: LABWHC1 09:19
PROVIDERS: ATTEND Orthopaedic Surgery
DX: M25.561 Pain in right knee (principal); M25.461 Effusion, right knee; Z47.1 Aftercare following joint replacement surgery; Z96.651 Presence of right artificial knee joint
CPT/HCPCS: 36415; 80048; 82164; 82306; 82550; 83520; 84439; 84443; 84450; 84460; 84550; 85025; 85652; 86038; 86039; 86140; 86200; 86431; 86812

== ENCOUNTER → 2023-03-15 | Outpatient (CLI) | payer MEDICARE ==
--- NOTE | 2023-03-15 13:40 | US ---
EXAMINATION TYPE: US venous doppler duplex LE RT DATE OF EXAM: 03/15/2023 12:47 PM COMPARISON: NONE CLINICAL INDICATION: Female, 57 years old with history of I80.9 PHLEBITIS AND THROMBO; lateral right calf and knee pain, artificial rt knee SIDE PERFORMED: Right TECHNIQUE: The lower extremity deep venous system is examined utilizing real time linear array sonog estevan with graded compression, doppler sonography and color-flow sonography. VESSELS IMAGED: Common Femoral Vein Deep Femoral Vein Greater Saphenous Vein * Femoral Vein Popliteal Vein Proximal Calf Veins (* superficial vessels) Right Leg: Negative for DVT IMPRESSION: 1. Right lower extremity ultrasound negative for deep venous thrombosis. There is some limitation due to body habitus.
== END | disposition home or self-care (01) ==
LOC: RADUSWWP 11:28
PROVIDERS: ATTEND Orthopaedic Surgery
DX: I80.9 Phlebitis and thrombophlebitis of unspecified site (principal)

== ENCOUNTER → 2024-06-22 | Outpatient (CLI) | payer MEDICARE ==
--- NOTE | 2024-06-22 19:39 | CT ---
EXAMINATION TYPE: CT abdomen pelvis wo con DATE OF EXAM: 06/22/2024 COMPARISON: 09/01/2020 HISTORY: 58-year-old female R10.32 FLANK PAIN R/O KIDNEY STONE CT DLP: 703.7 mGycm. Automated exposure control for dose reduction was used. TECHNIQUE: Contiguous axial scanning of the abdomen and pelvis without IV contrast. Coronal and sagit fartun reconstructions performed. FINDINGS: The heart is normal size without pericardial effusion. Strandy atelectasis inferior lingula. No pleur al effusion. Noncontrast appearance of the liver, adrenal glands, right kidney, spleen, and pancreas show no gross abnormality. Cholecystectomy clips. 3 mm nonobstructive left renal calculus. However, there is mild to moderate left hydronephrosis and m ild left hydroureter with approximately 4 stones in the distal left ureter, largest measuring 6 mm. T he other stones are tiny/punctate. No dilated small bowel, free fluid, or free air. No mesenteric or retroperitoneal lymphadenopathy. Normal appendix. [id number] stool in the descending colon. No pericolonic inflammatory change. Redundant sigmoid colon. Bladder is collapsed. There is some pelvic floor relaxation. Uterus surgically absent. Ovaries not cl early delineated. No abnormal fluid collection in the pelvis or pelvic lymphadenopathy. Bones: Extensive posterior fusion changes throughout the lower thoracic and lumbar spine from T10 steve n through S1. Severe degenerative disc disease above and T9-T10. Laminectomies throughout the lumbar spine. IMPRESSION: 1. A cluster of 4 stones in the distal left ureter, largest measuring 6 mm. The other stones are tin y/punctate. This results in a mild to moderate obstructive uropathy. 2. Additional punctate 3 mm left renal stone. [facility], , 06/22/2024 7:37 PM
== END | disposition home or self-care (01) ==
LOC: RADCTMAIN 16:20
PROVIDERS: ATTEND Family Medicine
DX: N20.2 Calculus of kidney with calculus of ureter (principal)
CPT/HCPCS: 74176

== ENCOUNTER → 2024-06-23 | Outpatient (CLI) | payer MEDICARE ==
[2024-06-23 15:02] LABS: Basophils # (A) 0.04 X 10*3/uL (0.00-0.10); Basophils % (A) 0.8 %; Eosinophils # (A) 0.14 X 10*3/uL (0.04-0.35); Eosinophils % (A) 2.7 %; HCT 39.9 % (37.2-46.3); HGB 13.5 g/dL (12.0-15.0); Lymphocytes # (A) 1.96 X 10*3/uL (0.90-5.00); Lymphocytes % (A) 38.1 %; MCHC 33.8 g/dL (32.0-37.0); MCV 88.7 FL (80.0-97.0); Mean Platelet Volume 10.1 FL (9.5-12.2); Monocytes # (A) 0.48 X 10*3/uL (0.20-1.00); Monocytes % (A) 9.3 %; NRBC Per 100 WBC 0 X 10*3/uL (0.00-0.01); Neutrophils # (A) 2.51 X 10*3/uL (1.80-7.70); Neutrophils % (A) 48.7 %; Platelet Count 330 X 10*3/uL (140-440); RDW 12.7 % (11.5-14.5); WBC 5.15 X 10*3/uL (4.50-10.00)
== END | disposition home or self-care (01) ==
LOC: LABWHC1 10:24
PROVIDERS: ATTEND Nurse Practitioner Adult Health
DX: R10.32 Left lower quadrant pain (principal)
CPT/HCPCS: 36415; 85025